=== PATIENT | male | born 1930 | race Caucasian/White ===

== ENCOUNTER 2016-07-26 15:21 | Emergency (ER) | payer MEDICARE, BC ==
--- NOTE | ~2016-07-26 | CT52 ---
[facility] A Service [facility] RADIOLOGY TEXT RESULTS PATIENT: MECCA LOYOLA LOCATION: [facility] : 31 UNIT #: [id number] AGE: [address]: Rusty Beth MD SEX: M ORDER DR: [id number] [place] [address] [id number] [facility]. [place], [place] [address] [id number] E MR#: [id number] Acc #: [id number] NAME: MECCA LOYOLA : 1930 SEX: M STUDY DATE/TIME: 07/26/2016 16:19 UNIT: [facility] ROOM: STUDY DESCRIPTION: CT Cervical Spine Wo Cont Attending Physician: Rusty Beth M.D. Ordering Physician: Rusty Beth M.D. Primary Care Physician: Blake Dhillon M.D. MEDICAL IMAGING REPORT This report is preliminary unless electronic signature is present EXAM CT cervical spine without contrast. DATE OF EXAM 07/26/2016 INDICATIONS Posterior neck pain after a fall today. PROCEDURE Noncontrast CT of the cervical spine. COMPARISON 05/26/2016 TECHNIQUE NOTE: This CT exam was performed with one or more of the following radiation dose reduction techniques: automatic exposure control, adjustment of mA and/or kV according to patient size, and iterative reconstruction. FINDINGS Cervical bodies have normal height, alignment is preserved. The craniocervical junction and dens are intact. Multilevel degenerative disc disease and facet arthrosis. Degenerative disc disease most significant C5-6. No acute fracture. Varying degrees of central canal neural foraminal narrowing. Right pleural effusion. IMPRESSION 1. Multilevel age-related change. No acute fracture. 2. Partially included right pleural effusion. [facility] A Service [facility] RADIOLOGY TEXT RESULTS PATIENT: MECCA LOYOLA LOCATION: [facility] : 31 UNIT #: [id number] AGE: [address]: Rusty Beth MD SEX: M ORDER DR: Dictated by... Carlin Schilling M.D. THIS IS AN ELECTRONICALLY VERIFIED REPORT Carlin Schilling M.D. at 07/28/2016 6:59 AM ANNA/lan TD: 07/26/2016 18:53 JOB #: [id number] MEDICAL IMAGING REPORT COPY
--- NOTE | ~2016-07-26 | CT71 ---
[facility] A Service of [facility] RADIOLOGY TEXT RESULTS PATIENT: MECCA LOYOLA LOCATION: [facility] : 31 UNIT #: [id number] AGE: [address]: Rusty Beth MD SEX: M ORDER DR: [id number] [place] [id number] [facility]. [place], [place] [address] [id number] E MR#: [id number] Acc #: [id number] NAME: MECCA LOYOLA : 1930 SEX: M STUDY DATE/TIME: 07/26/2016 16:16 UNIT: [facility] ROOM: STUDY DESCRIPTION: CT Head Wo Contrast Attending Physician: Rusty Beth M.D. Ordering Physician: Rusty Beth M.D. Primary Care Physician: Blake Dhillon M.D. MEDICAL IMAGING REPORT This report is preliminary unless electronic signature is present EXAM CT head, without contrast. DATE OF EXAM 07/26/2016 INDICATIONS Posterior head laceration after a fall today. PROCEDURE Noncontrast CT of the head. COMPARISON 05/26/2016 TECHNIQUE NOTE: This CT exam was performed with one or more of the following radiation dose reduction techniques: automatic exposure control, adjustment of mA and/or kV according to patient size, and iterative reconstruction. FINDINGS Generalized volume loss. No acute hemorrhage, abnormal mass effect, extraaxial fluid collection or hydrocephalus. No significant scalp hematoma. No calvarial fracture. The paranasal sinuses and mastoid air cells are clear. IMPRESSION 1. No acute intracranial findings. 2. Generalized volume loss. Dictated by... [facility] A Service [facility] RADIOLOGY TEXT RESULTS PATIENT: MECCA LOYOLA LOCATION: [facility] : 31 UNIT #: [id number] AGE: [address]: Rusty Beth MD SEX: M ORDER DR: Carlin Schilling M.D. THIS IS AN ELECTRONICALLY VERIFIED REPORT Carlin Schilling M.D. at 07/28/2016 6:59 AM Ranjana TD: 07/26/2016 18:48 JOB #: [id number] MEDICAL IMAGING REPORT COPY
[~2016-07-26 15:21] MED LIST: ACETAMINOPHEN PO; ACID REDUCER20 MG PO; ACTOS PO; ALBUTEROL17 GM INH; AMIODARONE HCL100 MG PO; AMIODARONE PO; AMLODIPINE BESY10 MG PO; AMLODIPINE BESYL5 MG PO; AMOXICILLIN PO; APRESOLINE PO; APRESOLINE10 MG PO; ASPIRIN PO; ASPIRIN325 M1 PO; ASPIRIN81 M2 PO; ASPIRIN81 MG PO; BIMATOPROST2.5 ML OP; BIMATOPROST2.5 ML OU; CALCITRIOL0.25 MCG PO; CHEWABLE ASPIRI81 MG PO; CORDARONE200 M1 PO; COUMADIN2.5 MG PO; COUMADIN5 MG PO; DOXYCYCLINE HY100 M3 PO; ELIQUIS2.5 MG PO; FAMOTIDINE20 M1 PO; FAMOTIDINE20 MG PO; FLOVENT HFA10.6 GM IH; FLOVENT7.9 GM 44 INH; FLOVENT7.9 GM INH; FUROSEMIDE40 MG PO; HYDRALAZINE HC100 MG PO; HYDROCHLOROTHIA25 MG PO; IMDUR-ER30 M2 PO; IMDUR-ER30 M3 PO; IMDUR-ER30 MG PO; K-DUR20 ME2 PO; KCL PO; KEFLEX PO; KLOR-CON PO; KROGER PHARMACY; LANTUS100 U/ML IM; LANTUS100 U/ML SUBQ; LASIX PO; LASIX80 MG PO; LEVOTHROID25 MCG PO; LEVOTHYROXINE100 MCG PO; LEVOTHYROXINE112 MCG PO; LEVOTHYROXINE50 MCG PO; LINZESS145 MCG PO; LOPRESSOR PO; LOSARTAN PO; LOSARTAN POTASS50 MG PO; LUMIGAN2.5 ML OP; LUMIGAN2.5 ML OU; METFORMIN HCL500 M1 PO; METFORMIN HCL500 M2 PO; METFORMIN PO; METOPROLOL SUCC25 MG PO; METOPROLOL SUCC50 MG PO; MICARDIS PO; NIASPAN PO; NIASPAN750 MG PO; NORCO 7.5-3251 EACH PO; NORVASC10 MG PO; ONE DAILY1 TA3 PO; ONGLYZA2.5 MG PO; ONGLYZA5 MG PO; PACERONE PO; PACERONE100 MG PO; PEN-VEE K PO; PENICILLIN PO; PENICILLIN V P500 MG PO; PEPCID AC20 M1 PO; PEPCID PO; PFIZERPEN-G5 MU IV; PLAVIX PO; POTASSIUM CHLO20 ME1 PO; PREDNISONE PO; SAXAGLIPTIN PO; SIMVASTATIN40 MG PO; SYNTHROID112 MCG PO; SYNTHROID88 MCG PO; TOPROL XL 50 MG50 MG PO; ZOCOR PO; [UNRECOGNIZED DRUG - REMARK] PO
== END 2016-07-26 17:34 | disposition home or self-care (01) ==
LOC: CED 15:21
DX: S09.90XA Unspecified injury of head, initial encounter (principal); S01.01XA Laceration without foreign body of scalp, initial encounter; Z23 Encounter for immunization; I50.9 Heart failure, unspecified; E11.9 Type 2 diabetes mellitus without complications; W01.0XXA Fall on same level from slipping, tripping and stumbling without subsequent striking against object, initial encounter; Y92.9 Unspecified place or not applicable
CPT/HCPCS: 12002; 70450; 72125; 90471; 90715; 99284

== ENCOUNTER 2016-08-18 10:56 | Inpatient (IN) | payer MEDICARE, BC ==
--- NOTE | ~2016-08-18 | DS ---
Unit #: [id number] #: [id number] Patient: MECCA LOYOLA [id number] [address] [place], [place] [address] [id number] I MR#: [id number] NAME: MECCA LOYOLA ROOM: 312 Age: 85 Sex: M Admission Date: 08/18/2016 : 1930 Discharge Date: 08/23/2016 Attending Physician: Tamara Mike M.D. Primary Care Physician: Blake Dhillon M.D. DISCHARGE SUMMARY REASON FOR ADMISSION Acute chronic systolic heart failure exacerbation/volume overload. HISTORY OF PRESENT ILLNESS/HOSPITAL COURSE Please see H and P for complete details of initial part of hospital stay. The patient is an 85-year-old, who was admitted secondary to acute on chronic systolic heart failure as well as volume overload. In regard to the same, consultation was placed to Dr. Jaeger and associates. They had seen the patient in the past. He was placed on appropriate dobutamine drip as well as IV diuresis. Consultation was also obtained with Dr. Rojas of Nephrology Services. Both services continued to follow the patient through hospital course. Initial platelet count was greater than 150, it did decrease into the mid 80s. The patient was on Eliquis secondary to underlying history of atrial fibrillation. Later on, this was discontinued. Rate/rhythm control was achieved with amiodarone and decision was made for no chronic anticoagulation with the exception of aspirin at the time of discharge secondary to decreasing platelets. Renal services have also stated the patient requires increased diuresis at time of discharge and therefore, Demadex was increased prior to discharge. Aspirin was also discontinued after chart review on 08/23/2016. FINAL DISCHARGE DIAGNOSES 1. Acute on chronic systolic heart failure with estimated ejection fraction approximately 30%. 2. Acute on chronic kidney disease. 3. Moderate pleural effusion, improved after appropriate IV diuresis. 4. Prior history of myocardial infarction. 5. Paroxysmal atrial fibrillation history/flutter history. 6. Chronic deconditioning. 7. Diabetes type 2. 8. 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 9. Thrombocytopenia possibly secondary to Eliquis and/or other anticoagulation. Discharge platelet count approximately 90. 10. Hyponatremia on admission, improved likely secondary to dilution. 11. Chronic kidney disease stage IV. 12. Hypertension. 13. Hyperlipidemia. 14. Volume overload on admission, now resolved. Unit #: [id number] #: [id number] Patient: MECCA LOYOLA DISCHARGE MEDICATIONS Proventil 4 puffs q.6 p.r.n., amiodarone 200 mg p.o. daily, carvedilol 3.125 mg p.o. b.i.d., Tradjenta 5 mg p.o. daily, Demadex 80 mg p.o. b.i.d., simvastatin 40 mg p.o. daily, hydralazine 10 mg p.o. b.i.d., Lantus 14 units subcu q.a.c. breakfast, Pepcid 20 mg p.o. daily, aspirin 81 mg p.o. daily, Synthroid 112 mcg p.o. daily, Imdur 30 mg p.o. daily. DISCHARGE CONDITION Stable. DISCHARGE DISPOSITION Home. PROGNOSIS Overall long-term prognosis, guarded. Family is well aware. Dictated by... Tamara Mike M.D. YAAKOV/tessa TD: 08/24/2016 22:35 JOB #: [id number] DISCHARGE SUMMARY Page 1 of 1 X Tamara Mike MD X DISCHARGE SUMMARY
--- NOTE | ~2016-08-18 | EKG ---
PATIENT: MECCA LOYOLA UNIT #: [id number] Ventricular Rate: 60 BPM Atrial Rate: 59 BPM P-R Interval: 190 ms QRS Duration: 166 ms Q-T Interval: 610 ms QTC Calculation(Bezet): 610 ms P [place]: 119 degrees Calculated R [place]: -86 degrees Calculated T [place]: 88 degrees Diagnosis Line: AV dual-paced rhythm Diagnosis Line: Abnormal ECG Diagnosis Line: When compared with ECG of 24-JUN-2016 05:35, Diagnosis Line: Vent. rate has decreased BY 4 BPM Diagnosis Line: Confirmed by CRUZ TIRADO MD ([id number]) on 08/19/2016 Diagnosis Line: 4:50:47 AM INTERPRETING MD: CANDIDA BARRIOS
--- NOTE | ~2016-08-18 | CT71 ---
[facility] A Service of [facility] RADIOLOGY TEXT RESULTS PATIENT: MECCA LOYOLA LOCATION: [facility] : 31 UNIT #: [id number] AGE: [address]: Tamara Mike MD SEX: M ORDER DR: [id number] [facility] [address] [facility]. [place], [place] [address] [id number] I MR#: [id number] Acc #: [id number] NAME: MECCA LOYOLA : 1930 SEX: M STUDY DATE/TIME: 08/18/2016 11:37 UNIT: [facility] ROOM: 12934 STUDY DESCRIPTION: CT Head Wo Contrast Attending Physician: Marixa Adkins M.D. Ordering Physician: Adrian Caballero M.D. Primary Care Physician: Blake Dhillon M.D. MEDICAL IMAGING REPORT This report is preliminary unless electronic signature is present EXAM CT brain without contrast media, date of examination is 08/18/2016 COMPARISON 07/26/2016 HISTORY Confusion for 1 day. TECHNIQUE Transaxial imaging of the brain was performed without contrast and compared directly to the patient's previous noncontrast scan of July 26. This CT exam was performed with one or more of the following radiation dose reduction techniques: Automatic exposure control, adjustment of mA and/or kV according to patient size, and iterative reconstruction. FINDINGS Redemonstrated is marked enlargement of the ventricles and CSF-containing spaces. This is unchanged and there is some decreased attenuation of the periventricular white matter, this is minimal. No mass lesions, mass effect, acute hemorrhage or edema, no intra- or extraaxial fluid collections are identified. Patient does have dense atherosclerotic calcifications in the carotid siphons and in both vertebral arteries. CONCLUSION Generalized atrophy. No acute intracranial findings or significant changes since July 26, 2016. Dictated by... Mor Wells M.D. [facility] A Service [facility] RADIOLOGY TEXT RESULTS PATIENT: MECCA LOYOLA LOCATION: [facility]- : 31 UNIT #: [id number] AGE: [address]: Tamara Mike MD SEX: M ORDER DR: THIS IS AN ELECTRONICALLY VERIFIED REPORT Mor Wells M.D. at 08/20/2016 3:10 PM Radha TD: 08/18/2016 18:11 JOB #: [id number] MEDICAL IMAGING REPORT Page 1 of 1 COPY
--- NOTE | ~2016-08-18 | CO ---
Unit #: [id number] #: [id number] Patient: MECCA LOYOLA [id number] [address] [place], [place] [address] [id number] I MR#: [id number] NAME: MECCA LOYOLA ROOM: 312 Age: 85 Sex: M Admission Date: 08/18/2016 : 1930 Attending Physician: Tamara Mike M.D. Primary Care Physician: Blake Dhillon M.D. Consultation Date: 08/18/2016 CONSULTATION REPORT REASON FOR CONSULT Management of anticoagulation. HISTORY OF PRESENT ILLNESS This is an 85-year-old white male, well known to our group with recent admissions to the hospital in 05/2016 and 06/2016. The patient is known to have chronic systolic congestive heart failure and ischemic cardiomyopathy with a left ventricular ejection fraction of 30% to 35%. He also has severe mitral regurgitation, llaqznhe-id-tdtptq tricuspid regurgitation, and severe pulmonary hypertension. He was diagnosed with atrial flutter/atrial fibrillation in 05/2016. He was placed on Eliquis at that time. He does have a permanent pacemaker due to sick sinus syndrome. 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 Additional past medical history includes hypertension, hyperlipidemia, diabetes mellitus type 2, and chronic kidney disease. The patient presented to the hospital with complaints of weakness and worsening confusion. His mental status is currently improved and he is able answer questions. He also has his and daughter at the bedside. According to the family, he has not been feeling well recently. On Thursday, his feet were very swollen. They have given an extra dose of diuretics in prompt to speed up and the swelling got better. He has had some worsening shortness of breath and productive cough. There are no reports of fever, but he does have chills and keeps the house very warm. He has had some occasional palpitations. There are no reports of dizziness or syncope. He denies chest pain, PND, or orthopnea. He has had bruising all over his arms, chest, and back over the recent months since starting on Eliquis. Family is very concerned about the bruising and is inquiring about need for anticoagulation. The patient has also had bleeding from his gums though she states it has been present for approximately 5 years. It has not worsened since starting Eliquis . He has had no gastrointestinal bleeding reported. In the emergency department, he was initially seen for altered mental status and low blood pressure. Blood pressure in the emergency department was 99/60. He was given normal saline bolus. Glucose level was low and he was given one amp of D50. Chest x-ray revealed consolidation in the right lower lobe and there was concern for pneumonia. He was given Zosyn and tobramycin, and admitted for acute altered mental status, acute kidney injury, sepsis, and possible pneumonia. Nephrology was consulted due to an elevated creatinine of 4.0 with a BUN of 73. Cardiology was consulted for management of anticoagulation. PAST MEDICAL HISTORY Unit #: [id number] #: [id number] Patient: MECCA LOYOLA 1. Recent admission to [facility] on 06/23/2016 through 06/28/2016 for systolic congestive heart failure and acute kidney injury on chronic kidney disease. 2. Previous admission on 05/16/2016 for acute kidney injury, falls, atrial flutter and atrial fibrillation. 3. 2D echocardiogram on 06/24/2016 revealed a left ventricular ejection fraction of 55% while on Dobutrex. Left atrium moderately to severely dilated. Moderate left atrial enlargement. Mildly dilated right ventricle. Right ventricular systolic pressure 79 mmHg. Mild aortic regurgitation. Severe mitral regurgitation. Pjvvectd-dg-nnnlpw tricuspid regurgitation. 4. Previous ejection fraction 30% to 35% in 2016. 5. Coronary artery disease, status post PCI and stent in the LAD in 2000. Status post PCI and stents in the right coronary artery and left circumflex in 2009. 6. Sick-sinus syndrome, status post permanent pacemaker. 7. Chronic kidney disease. 8. 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 9. Hypertension. 10. Hyperlipidemia. 11. Diabetes mellitus, type 2. 12. Nonsmoker. 13. Hemochromatosis. PAST SURGICAL HISTORY 1. Cardiac catheterization. 2. Permanent pacemaker. 3. Right knee replacement. 4. Left knee replacement. 5. Rotator cuff repair bilaterally. 6. Basal cell removal. HOME MEDICATIONS Amiodarone 200 mg p.o. daily, Eliquis 2.5 mg, metoprolol tartrate 25 mg p.o. b.i.d., torsemide 60 mg p.o. b.i.d., simvastatin 40 mg p.o. daily, hydralazine 10 mg p.o. b.i.d., Lantus 14 units subcu before breakfast, bimatoprost one drop OU every evening, famotidine 20 mg p.o. daily, aspirin 81 mg p.o. daily, Synthroid 112 mcg p.o. daily, Imdur ER 30 mg p.o. daily, Tradjenta 5 mg p.o. daily, Ventolin 4 puffs inhalation q.i.d. p.r.n. for shortness of breath. ALLERGIES No known drug allergies. SOCIAL HISTORY The patient lives in a private residence. He is fairly sedentary. He is a lifetime nonsmoker. There are no reports of alcohol or illicit drug use. FAMILY HISTORY Unchanged from previous consultation. REVIEW OF SYSTEMS A 10-point review of systems negative except for details noted above in HPI. PHYSICAL EXAMINATION VITAL SIGNS: Temperature 97.3, pulse 73, blood pressure 113/77. CONSTITUTIONAL: This is an 85-year-old white male, who is ill appearing. Unit #: [id number] #: [id number] Patient: MECCA LOYOLA SKIN: Warm and dry. Petechiae noted on the chest and back. Bruising on arms. NECK: Supple. Mild jugular vein distention. No hepatojugular reflux. Normal carotid upstrokes. No carotid bruits auscultated. HEART: S1 and S2. Regular rate and rhythm. No murmurs, rubs, or gallops. LUNGS: Bilateral breath sounds are coarse and have some rhonchi and rales. Respirations are even and nonlabored. ABDOMEN: Soft, nontender, and nondistended. Positive bowel sounds auscultated x4 quadrants. No ascites noted. EXTREMITIES: Bilateral lower extremities have +2 pitting edema. DP and PT pulses are 2+. Capillary refill is less than 2 seconds. DIAGNOSTIC STUDIES LABORATORY RESULTS: White blood cell count 8, hemoglobin 11.8, hematocrit 37, platelets 159. Sodium 128, potassium 3.9, chloride 89, CO2 of 27, BUN 73, creatinine 4.0, glucose 58. Glucose given. AST 47, ALT 70, alkaline phos 89. Lactic acid 2.4. TSH 0.39, T4 3.15. Urinalysis negative. Blood cultures pending. CARDIOVASCULAR STUDIES: EKG reveals an AV paced rhythm. IMAGING STUDIES: Chest x-ray reveals cardiomegaly with interstitial changes. Increased right basilar density with consolidation. CT scan of the head reveals generalized atrophy. No acute changes. IMPRESSION 1. Acute on chronic systolic congestive heart failure. 2. Severe mitral regurgitation, mmfscxfm-ic-brnabt tricuspid regurgitation, and severe pulmonary hypertension. 3. Ischemic cardiomyopathy, coronary artery disease, status post multiple percutaneous coronary intervention and stents. 4. Probable right lower lobe pneumonia, rule out sepsis. 5. Hyponatremia. 6. Acute kidney injury on chronic kidney disease. 7. History of paroxysmal atrial fibrillation/atrial flutter, now paced. 8. Sick sinus syndrome with history of permanent pacemaker. 9. Hyperlipidemia. 10. Diabetes mellitus, type 2. 11. Elevated LFTs. 12. 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 PLAN 1. The patient presented to the hospital with complaints of altered mental status and weakness. His mental status has improved and CT of the head was negative. 2. Chest x-ray revealed a concern for right lower lobe pneumonia. He was started on antibiotics and admitted for further observation. 3. Cardiology was consulted for management of anticoagulation. The patient and family are concerned due to significant bruising while on anticoagulation. 4. The patient also has bleeding of the gums. We will discontinue Eliquis for now and defer long-term anticoagulation to Dr. Jaeger. 5. There is evidence of congestive heart failure on exam as well as acute kidney injury. Unit #: [id number] #: [id number] Patient: MECCA LOYOLA 6. The patient will be started on dobutamine. His metoprolol will be held while dobutamine infuses. 7. Nephrology has been consulted. 8. TSH levels normal. 9. There are no reports of chest pain. Initial cardiac enzymes and EKG are negative. 10. We will continue hydralazine and nitrates for afterload reduction. No ZHANG or ARB will be prescribed due to renal insufficiency. Dictated by... Natalie William APRN for Leigh Ga/tessa TD: 08/21/2016 03:51 JOB #: [id number] CONSULTATION REPORT Page 1 of 1 X X CONSULTATION REPORT
--- NOTE | ~2016-08-18 | CR63 ---
[facility] A Service of [facility] & [facility] RADIOLOGY TEXT RESULTS PATIENT: MECCA LOYOLA LOCATION: [facility] 312- : 31 UNIT #: [id number] AGE: [address]: Tamara Mike MD SEX: M ORDER DR: [id number] [facility] [address] [place], [place] [address] [id number] I MR#: [id number] Acc #: [id number] NAME: MECCA LOYOLA : 1930 SEX: M STUDY DATE/TIME: 08/19/2016 09:31 UNIT: [address] ROOM: 312 STUDY DESCRIPTION: CR Chest 2 View Attending Physician: Tamara Mike M.D. Ordering Physician: Adrian Caballero M.D. Primary Care Physician: Blake Dhillon M.D. MEDICAL IMAGING REPORT This report is preliminary unless electronic signature is present EXAM Chest 2 views, 08/19/2016 0931 hours HISTORY 85-year-old man with history of chest pain, hypertension, shortness of air and altered mental status today. History of diabetes and prior CHF. COMPARISON 08/18/2016 FINDINGS Upright PA and lateral views of the chest demonstrate stable cardiomegaly, pacer device and tortuous aorta. Pulmonary vascularity is within normal limits. The left lung is clear and there is no left effusion. There is hazy density at the right lung base related to pleural fluid, which is moderate. No definite underlying consolidation. IMPRESSION 1. Stable cardiomegaly, tortuous aorta and dual-lead pacer device. 2. There is a moderate right pleural effusion with no definite underlying consolidation. The right upper lung, left lung are clear and there is no left effusion. Dictated by... Sonya Hood M.D. THIS IS AN ELECTRONICALLY VERIFIED REPORT Sonya Hood M.D. at 08/20/2016 9:38 AM STACYM/katie TD: 08/19/2016 18:35 JOB #: [id number] [facility] A Service of [facility] & [facility] RADIOLOGY TEXT RESULTS PATIENT: MECCA LOYOLA LOCATION: [facility] 312-01 : 31 UNIT #: [id number] AGE: [address]: Tamara Mike MD SEX: M ORDER DR: MEDICAL IMAGING REPORT Page 1 of 1 COPY
--- NOTE | ~2016-08-18 | CR72 ---
[facility] A Service of [facility] RADIOLOGY TEXT RESULTS PATIENT: MECCA LOYOLA LOCATION: [facility] [address]-29 : 31 UNIT #: [id number] AGE: [address]: JOSE ADKINS MD SEX: M ORDER DR: [id number] [facility] [address] [facility] [place], [place] [address] [id number] I MR#: [id number] Acc #: [id number] NAME: MECCA LOYOLA : 1930 SEX: M STUDY DATE/TIME: 08/18/2016 11:21 UNIT: [facility] ROOM: 55945 STUDY DESCRIPTION: CR Chest Single View Portable Attending Physician: Jose Adkins M.D. Ordering Physician: Adrian Caballero M.D. Primary Care Physician: Blake Dhillon M.D. MEDICAL IMAGING REPORT This report is preliminary unless electronic signature is present EXAM Chest portable, 08/18/2016 11:21 hours HISTORY 85-year-old man with shortness of air and hypertension today. COMPARISON 06/23/2016 FINDINGS Single portable upright view demonstrates stable cardiomegaly, dual lead pacer and tortuous atherosclerotic aorta. There is mild pulmonary venous distension and mild basilar interstitial change similar to 06/23/2016. There appears to be an increasing right pleural effusion. IMPRESSION 1. Stable cardiomegaly, tortuous atherosclerotic aorta and pacer device. 2. There is basilar interstitial change with increasing right basilar density. There is a component of pleural fluid which is new. Underlying lung consolidation or pneumonia cannot be excluded at the right base. Dictated by... Sonya Hood M.D. THIS IS AN ELECTRONICALLY VERIFIED REPORT Sonya Hood M.D. at 08/18/2016 6:54 PM Meme TD: 08/18/2016 14:48 JOB #: [id number] [facility] A Service of [facility] RADIOLOGY TEXT RESULTS PATIENT: MECCA LOYOLA LOCATION: [facility] [address]-63 : 31 UNIT #: [id number] AGE: [address]: JOSE ADKINS MD SEX: M ORDER DR: MEDICAL IMAGING REPORT Page 1 of 1 COPY
--- NOTE | ~2016-08-18 | CO ---
Unit #: [id number] #: [id number] Patient: ALAN LOYOLA [id number] [address] [place], [place] [address] [id number] I MR#: [id number] NAME: ALAN LOYOLA ROOM: 312 Age: 85 Sex: M Admission Date: 08/18/2016 : 1930 Attending Physician: Marixa Adkins M.D. Primary Care Physician: Blake Dhillon M.D. Consultation Date: 08/18/2016 CONSULTATION REPORT REASON FOR CONSULTATION Acute on chronic kidney disease. HISTORY OF PRESENT ILLNESS Mr. Alan Loyola is a pleasant 85-year-old gentleman, who was actually brought into the emergency room due to confusion by the family. The patient had also had some weakness and possibly some falls as well according to the ER intake sheet. One of his daughters had given him some extra diuretics over the weekend, because she was concerned about some swelling. The patient has been worked up in the ER and then found to have probable pneumonia as well as a CHF exacerbation. His blood pressure has been low, he has actually been getting fluids here in the emergency room. He was most recently admitted to the hospital in June for a CHF exacerbation and his outpatient diuretics have been changed from Lasix to torsemide to assist with the diuresis. The patient's creatinine is noted to be above baseline on admission labs. He does have a very poorly developed fistula in the right arm for future dialysis, but based on exam I do not feel it would ever be adequate for treatment. The patient is now more alert and oriented. He denies any chest discomfort or shortness of breath. No urinary complaints. He does have swelling in his legs. PAST MEDICAL HISTORY Significant for chronic kidney disease stage 4, coronary artery disease with previous intervention, sick sinus syndrome with atrial fibrillation requiring pacer, congestive heart failure with an ejection fraction of 30% to 35%, diabetes, and hypothyroidism. PAST SURGICAL HISTORY He has had a pacemaker placed right arm fistula, knee replacements, rotator cuff, coronary stents, and skin cancer. HOME MEDICATIONS He is on amiodarone 200 mg a day, Eliquis 2.5 mg b.i.d. on hold due to bruising, metoprolol 25 mg b.i.d., torsemide 60 mg b.i.d., simvastatin 40 mg a day, hydralazine 10 mg b.i.d., Lantus insulin as directed, eye drops, famotidine 20 mg a day, baby aspirin daily, Synthroid 112 mcg a day, Imdur 30 mg a day, Tradjenta 5 mg a day, and Ventolin inhaler. ALLERGIES He has no known drug allergies. FAMILY HISTORY Noncontributory to the current issue. Unit #: [id number] #: [id number] Patient: ALAN LOYOLA SOCIAL HISTORY The patient used to smoke, none currently. No alcohol or drug abuse. He is , has a very supportive large family in the room this afternoon. REVIEW OF SYSTEMS A complete 12-point review of systems was completed with the above findings. There have not been any documented fevers here in the emergency room. No nosebleed. No sore throat or earache. No cough. No hemoptysis. No hematemesis. No nausea, vomiting, or diarrhea. No bright red blood per rectum or melena. No dysuria or hematuria. No itching. No flank pain. No night sweats or hot flashes. No intolerance to heat or cold. He has had significant bruising. He has had weakness. No overt bleeding. Unless otherwise indicated, the review of systems was negative. PHYSICAL EXAMINATION VITAL SIGNS: The patient is afebrile, pulse 73, respiratory rate 16, and blood pressure 113/77. GENERAL: This is a pleasant elderly male, lying in bed, with attentive family, in no acute distress. HEENT: Head is atraumatic and normocephalic. Eyes show pink conjunctivae. No scleral icterus. No nasal drainage or nosebleed. Oropharynx is moist. NECK: Shows no rigidity. HEART: Paced and regular with murmur present. No rub appreciated. LUNGS: Have diminished air entry bilaterally with no wheezing. Breathing is nonlabored at rest. ABDOMEN: Soft and nontender. Bowel sounds are present. EXTREMITIES: No lower extremity cyanosis present. He does have 1+ pitting edema below the knees bilaterally. CHEST WALL: He does have a left-sided pacer in place. MUSCULOSKELETAL: No CVA tenderness to palpation. NEUROLOGIC: Noteworthy for generalized weakness. The patient is hard of hearing, but does have hearing aids. LYMPHATIC: There is no neck or cervical lymphadenopathy. SKIN: The patient has diffuse scattered bruising which is noted. VASCULAR: The patient has right wrist fistula in place that is very small. DIAGNOSTIC STUDIES LABORATORY RESULTS: CBC showed a hemoglobin of 11.8 on admission. INR 1.3. Lactic acid was 2.4. Ammonia 10. Chemistry noteworthy for a sodium of 128, potassium 3.9, chloride 89, bicarb 27, glucose 58, BUN 73, creatinine of 4. AST and ALT were high at 47 and 70 respectively with an albumin of 3.5. TSH slightly high at 3.1. Urinalysis was unremarkable with no protein or blood. Prior creatinine to this was 1.9 at discharge in 06/2016, this looks to be his baseline kidney function. IMAGING STUDIES: Chest x-ray showed some basilar interstitial change, especially on the right. I do see a dedicated kidney ultrasound in 07/2014 where kidneys were normal in appearance. ASSESSMENT AND PLAN 1. Acute on chronic kidney disease, stage 4. This looks to be prerenal in nature from a combination of decompensated heart failure and pneumonia. Certainly, I agreed with the treatment of both his heart failure and his Unit #: [id number] #: [id number] Patient: ALAN LOYOLA infection issues. Dobutamine drip has been started as well as antibiotics. The patient has responded well to these measures in the past and hopefully will do so again. He does have a fistula which again is too small to ever use for dialysis. If he would need dialysis during this admission, we would have to place a catheter. 2. Hyponatremia. This looks to be due to total volume excess. We will diurese with dobutamine on board. 3. Congestive heart failure, which is systolic in nature. I will add IV Lasix to the dobutamine that Cardiology has ordered. 4. Pneumonia with antibiotics started. 5. Mental status changes, which have improved. 6. Diabetes. 7. Diffuse bruising with Eliquis on hold. 8. History of heart rhythm issues with pacemaker in place. I would like to thank Dr. Adkins for this consult and the opportunity participate in evaluation and care Mr. Loyola. Dictated by... Harry Rojas Jr., M.D. ETHAN/tessa TD: 08/18/2016 23:58 JOB #: [id number] CONSULTATION REPORT Page 1 of 1 X Harry Rojas MD CONSULTATION REPORT
--- NOTE | ~2016-08-18 | HP ---
Unit #: [id number] #: [id number] Patient: MECCA LOYOLA [id number] [address] [place], [place] [address] [id number] E MR#: [id number] NAME: MECCA LOYOLA ROOM: Age: 85 Sex: M Admission Date: 08/18/2016 : 1930 Attending Physician: Adrian Caballero M.D. Primary Care Physician: Blake Dhillon M.D. HISTORY AND PHYSICAL CHIEF COMPLAINT Altered mental status. HISTORY OF PRESENT ILLNESS The patient is an 85-year-old male with history of multiple medical problems, including chronic kidney disease - stage 4. Brought to the emergency room with confusion that started last night. The patient stated that he was unaware of surroundings early this morning when he woke up, and he was found to be hypotensive by the EMS. The patient is a poor historian, and history is obtained by speaking with the patient's family at the bedside. The patient was recently discharged from the hospital on June 28 with acute systolic congestive heart failure, acute on chronic disease, and the patient was discharged home on high-dose of Lasix. The patient was found to be in acute kidney injury on chronic kidney disease with creatinine up to 4 from baseline of 2. The patient also had a chest x-ray concerning for consolidation, pneumonia of the right base. The patient is being admitted for the above reasons. The patient denies any fever. The patient has been coughing up brownish phlegm for the last 2-3 days. Denies any nausea or vomiting. The patient has edema of the lower legs and has been on high dose (1) started by primary nephrology at the office. The patient had a fall associated with recurrent bruises on the upper extremities and the chest and on the left side of the face. The patient was on Coumadin for A fib and was changed to Eliquis for the kidney failure. PAST MEDICAL HISTORY History of atrial fibrillation, sick sinus syndrome status post pacemaker, history of chronic congestive heart failure with EF of 30% to 35%, coronary artery disease, chronic kidney disease, history of frequent falls, anemia. The patient also has history of amiodarone-induced hypothyroidism, history of left eye histoplasmosis. SURGICAL HISTORY History of total knee replacement with revision of the left knee, left rotator cuff repair, basal cell carcinoma removed. ALLERGIES There are no known drug allergies. HOME MEDICATIONS He is on amiodarone, Eliquis, Metoprolol, Demadex, simvastatin, hydralazine, Lantus, bimatoprost, famotidine, aspirin, Synthroid, Imdur, linagliptin and albuterol. Unit #: [id number] #: [id number] Patient: MECCA LOYOLA SOCIAL HISTORY Patient is , denies history of smoking, drinking or any illicit drug abuse. FAMILY HISTORY Family history is positive for coronary artery disease and hemochromatosis. REVIEW OF SYSTEMS A 14-point review of systems was performed, and all the pertinent positive findings are as described above. The remaining are negative. PHYSICAL EXAMINATION GENERAL: The patient is lying in the bed. Not in acute distress. VITALS: Temperature is 97.3, pulse 60, respiratory rate 16, blood pressure 99/60, satting 100% on room air. HEENT: Head atraumatic, normocephalic. Pupils are equal round reactive to light and accommodation. Extraocular movements are intact. Dry mucous membranes. NECK: Supple. No JVD. LUNGS: Decreased air entry at the bases. Positive for rales. HEART: Irregular rate and rhythm. Positive for murmur. ABDOMEN: Soft. Positive bowel sounds. Multiple bruises on the upper chest. EXTREMITIES: The patient has pedal edema, +1 to +2, and bruit of the fistula in the right upper extremity, (2) skin tear. NEUROLOGIC: The patient is awake, alert and oriented x1. DIAGNOSTIC STUDIES LAB DATA: Glucose 58, BUN 73, creatinine 4, sodium 128, potassium 3.9, chloride 89, bicarb 27, calcium 8.9, total protein 6.5, albumin 3.5, total bilirubin 3, AST 47, ALT 70, alkaline phosphatase 89, ammonia 10, lactic acid 2.4. TSH is 0.39, free T4 3.14. INR is 1.3. WBC 8, hemoglobin 11.8, hematocrit 37, platelets 159, neutrophils 83.1%. IMAGING: Chest x-ray shows consolidation or pneumonia on the right base. ASSESSMENT 1. Altered mental status. 2. Acute kidney injury on chronic kidney disease stage 4. 3. Consolidation, pneumonia of the right base. 4. Sepsis with elevated lactic acid of 2.4. PLAN Plan to admit the patient as inpatient with telemetry. Continue with IV antibiotics. The patient has received vancomycin, Zosyn and tobramycin in the emergency room. We will continue with cefepime. Will have renal consult for acute kidney injury. Will have cardiology consult for [facility] for bruises with the fall. Continue the sepsis protocol. The EKG shows paced rhythm with rate of 60 beats per minute and QTc of 610. Further recommendations will follow as more lab results are available. Dictated by Leigh Velez/bronson Unit #: [id number] #: [id number] Patient: MECCA LOYOLA TD: 08/18/2016 14:05 JOB #: [id number] HISTORY AND PHYSICAL X X HISTORY AND PHYSICAL
[2016-08-18] MEDS ORDERED: ELIQUIS2.5 MG PO (11:41)
[2016-08-18] MEDS ORDERED: AMIODARONE PO (11:41)
[2016-08-18] MEDS ORDERED: METOPROLOL TAR25 MG PO (11:42)
[2016-08-18] MEDS ORDERED: DEMADEX PO (11:43)
[2016-08-18] MEDS ORDERED: SIMVASTATIN40 MG PO (11:44)
[2016-08-18] MEDS ORDERED: APRESOLINE10 M1 PO (11:45)
[2016-08-18] MEDS ORDERED: LANTUS100 U/ML SUBQ (11:46)
[2016-08-18] MEDS ORDERED: BIMATOPROST2.5 ML OU (11:47)
[2016-08-18] MEDS ORDERED: ACID REDUCER20 MG PO (11:48)
[2016-08-18] MEDS ORDERED: ASPIRIN81 M2 PO (11:48)
[2016-08-18] MEDS ORDERED: SYNTHROID112 MCG PO (11:48)
[2016-08-18] MEDS ORDERED: IMDUR-ER30 M1 PO (11:49)
[2016-08-18] MEDS ORDERED: TRADJENTA5 MG PO (11:49)
[2016-08-18] MEDS ORDERED: ALBUTEROL17 GM INH (11:50)
[2016-08-18 11:52] LABS: BASOPHIL% 0.1 % (0-2.5); EOSINOPHIL% 0.2 % (0.0-7.0); HEMOGLOBIN 11.8 gm/dL (13.0-16.0); LYMPHOCYTE# 0.4 X10e3 (1.0-3.5); LYMPHOCYTE% 5.5 % (17.0-45.0); MEAN CELL VOLUME 89.3 FL (83-96); MEAN CORPUSCULAR HEMOGLOBIN 28.4 PG (28-34); MEAN CORPUSCULAR HGB CONC 31.8 g/dL (30-36); MEAN PLATELET VOLUME 8.6 FL (6.5-11.5); MONOCYTE# 0.9 X10e3 (0-1.0); MONOCYTE% 11.1 % (3.0-12.0); NEUTROPHIL# 6.7 X10e3 (1.5-7.1); NEUTROPHIL% 83.1 % (40-75); PLATELET COUNT 159 X10e3 (140-420); RED BLOOD COUNT 4.14 X10e (3.90-5.60); RED CELL DISTRIBUTION WIDTH 16.8 % (11.0-15.5)
[2016-08-18 11:53] LABS: DIFF IND NO
[2016-08-18 12:07] LABS: INR 1.3; PARTIAL THROMBOPLASTIN TIME 29.1 SECONDS (23.5-31.3); PROTHROMBIN TIME (PATIENT) 13.9 SECONDS (9.6-11.5)
[2016-08-18 12:31] LABS: ALBUMIN SERUM 3.5 g/dL (3.5-5.0); BILIRUBIN, DIRECT 1.1 mg/dL (0.0-0.2); BILIRUBIN,INDIRECT 1.9 mg/dL (0.0-0.9); BUN/CREATININE RATIO 18.25; CALCIUM SERUM 8.9 mg/dL (8.4-10.2); GLOM FILT RATE Estimated 15.3 mL/min (>60); POTASSIUM 3.9 mmol/L (3.5-5.1); PROTEIN TOTAL SERUM 6.5 g/dL (6.0-8.3)
[2016-08-18 12:41] LABS: THYROID STIMULATING HORMONE 0.39 uIU/ml (0.34-5.60)
[2016-08-18 12:42] LABS: URINE SOURCE CLEAN CATCH
[2016-08-18 12:48] LABS: FREE THYROXIN (T4) 3.15 ng/dL (0.58-1.64)
[2016-08-18 12:49] LABS: URINE APPEARANCE CLEAR; URINE BILIRUBIN NEG (NEG); URINE BLOOD NEG (NEG); URINE COLOR YELLOW; URINE GLUCOSE NEG (NEG); URINE KETONE NEG (NEG); URINE LEUKOCYTE ESTERASE NEG (NEG); URINE NITRATE NEG (NEG); URINE PROTEIN NEG (NEG); URINE SPECIFIC GRAVITY 1.013 (1.003-1.035)
[2016-08-18 12:59] LABS: CULTURE INDICATED? NO
[2016-08-19 08:27] LABS: BASOPHIL% 0.1 % (0-2.5); EOSINOPHIL% 0.1 % (0.0-7.0); HEMATOCRIT 31.4 % (38.0-50.0); LYMPHOCYTE# 0.2 X10e3 (1.0-3.5); LYMPHOCYTE% 4.2 % (17.0-45.0); MEAN CELL VOLUME 90.3 FL (83-96); MEAN CORPUSCULAR HEMOGLOBIN 28.8 PG (28-34); MEAN CORPUSCULAR HGB CONC 31.9 g/dL (30-36); MEAN PLATELET VOLUME 8.9 FL (6.5-11.5); MONOCYTE# 0.7 X10e3 (0-1.0); MONOCYTE% 12.1 % (3.0-12.0); NEUTROPHIL# 4.7 X10e3 (1.5-7.1); NEUTROPHIL% 83.5 % (40-75); PLATELET COUNT 101 X10e3 (140-420); RED BLOOD COUNT 3.48 X10e (3.90-5.60); RED CELL DISTRIBUTION WIDTH 17.1 % (11.0-15.5); WHITE BLOOD COUNT 5.6 X10e3 (4.0-10.5)
[2016-08-19 08:29] LABS: DIFF IND NO
[2016-08-19 08:51] LABS: BUN/CREATININE RATIO 19.06; CALCIUM SERUM 8.3 mg/dL (8.4-10.2); CREATININE SERUM 3.2 mg/dL (0.6-1.4); GLOM FILT RATE Estimated 19.8 mL/min (>60); MAGNESIUM 2.3 mg/dL (1.6-3.0); POTASSIUM 3.9 mmol/L (3.5-5.1)
[2016-08-20 05:19] LABS: BASOPHIL% 0.2 % (0-2.5); EOSINOPHIL% 0.6 % (0.0-7.0); HEMATOCRIT 30.4 % (38.0-50.0); HEMOGLOBIN 9.9 gm/dL (13.0-16.0); LYMPHOCYTE# 0.3 X10e3 (1.0-3.5); LYMPHOCYTE% 5.4 % (17.0-45.0); MEAN CELL VOLUME 88.4 FL (83-96); MEAN CORPUSCULAR HEMOGLOBIN 28.8 PG (28-34); MEAN CORPUSCULAR HGB CONC 32.6 g/dL (30-36); MEAN PLATELET VOLUME 8.5 FL (6.5-11.5); MONOCYTE# 0.8 X10e3 (0-1.0); MONOCYTE% 13.9 % (3.0-12.0); NEUTROPHIL# 4.3 X10e3 (1.5-7.1); NEUTROPHIL% 79.9 % (40-75); RED BLOOD COUNT 3.44 X10e (3.90-5.60); RED CELL DISTRIBUTION WIDTH 16.8 % (11.0-15.5); WHITE BLOOD COUNT 5.4 X10e3 (4.0-10.5)
[2016-08-20 05:58] LABS: BUN/CREATININE RATIO 18.21; CALCIUM SERUM 8.5 mg/dL (8.4-10.2); CREATININE SERUM 2.8 mg/dL (0.6-1.4); GLOM FILT RATE Estimated 23.1 mL/min (>60); MAGNESIUM 2.3 mg/dL (1.6-3.0); POTASSIUM 3.1 mmol/L (3.5-5.1)
[2016-08-20 06:03] LABS: DIFF IND YES; PLATELET COUNT 98 X10e3 (140-420)
[2016-08-20 06:05] LABS: ANISOCYTOSIS SL; PLATELET ESTIMATE DECREASED (NORMAL)
[2016-08-21 07:30] LABS: HEMATOCRIT 31.6 % (38.0-50.0); HEMOGLOBIN 10.1 gm/dL (13.0-16.0); MEAN CELL VOLUME 89.6 FL (83-96); MEAN CORPUSCULAR HEMOGLOBIN 28.7 PG (28-34); MEAN PLATELET VOLUME 8.9 FL (6.5-11.5); RED BLOOD COUNT 3.53 X10e (3.90-5.60); RED CELL DISTRIBUTION WIDTH 17.3 % (11.0-15.5); WHITE BLOOD COUNT 6.2 X10e3 (4.0-10.5)
[2016-08-21 07:46] LABS: BUN/CREATININE RATIO 17.2; CALCIUM SERUM 8.6 mg/dL (8.4-10.2); CREATININE SERUM 2.5 mg/dL (0.6-1.4); GLOM FILT RATE Estimated 26.3 mL/min (>60); MAGNESIUM 2.2 mg/dL (1.6-3.0); POTASSIUM 3.5 mmol/L (3.5-5.1)
[2016-08-22 06:14] LABS: HEMOGLOBIN 10.6 gm/dL (13.0-16.0); MEAN CELL VOLUME 90.4 FL (83-96); MEAN CORPUSCULAR HEMOGLOBIN 28.3 PG (28-34); MEAN CORPUSCULAR HGB CONC 31.3 g/dL (30-36); MEAN PLATELET VOLUME 8.4 FL (6.5-11.5); RED BLOOD COUNT 3.76 X10e (3.90-5.60); RED CELL DISTRIBUTION WIDTH 17.2 % (11.0-15.5); WHITE BLOOD COUNT 7.1 X10e3 (4.0-10.5)
[2016-08-22 06:56] LABS: ALBUMIN SERUM 2.9 g/dL (3.5-5.0); BILIRUBIN,TOTAL 2.2 mg/dL (0.2-2.0); BUN/CREATININE RATIO 17.61; CALCIUM SERUM 8.4 mg/dL (8.4-10.2); CREATININE SERUM 2.1 mg/dL (0.6-1.4); GLOM FILT RATE Estimated 28.1 mL/min (>60); MAGNESIUM 2.1 mg/dL (1.6-3.0); PROTEIN TOTAL SERUM 5.5 g/dL (6.0-8.3)
[2016-08-22 14:33] LABS: HEMATOCRIT 33.5 % (38.0-50.0); HEMOGLOBIN 10.7 gm/dL (13.0-16.0); MEAN CELL VOLUME 89.3 FL (83-96); MEAN CORPUSCULAR HEMOGLOBIN 28.4 PG (28-34); MEAN CORPUSCULAR HGB CONC 31.8 g/dL (30-36); MEAN PLATELET VOLUME 8.7 FL (6.5-11.5); RED BLOOD COUNT 3.76 X10e (3.90-5.60); RED CELL DISTRIBUTION WIDTH 16.7 % (11.0-15.5); WHITE BLOOD COUNT 8.3 X10e3 (4.0-10.5)
[2016-08-23 05:38] LABS: HEMATOCRIT 32.5 % (38.0-50.0); HEMOGLOBIN 10.4 gm/dL (13.0-16.0); MEAN CELL VOLUME 88.9 FL (83-96); MEAN CORPUSCULAR HEMOGLOBIN 28.5 PG (28-34); MEAN CORPUSCULAR HGB CONC 32.1 g/dL (30-36); MEAN PLATELET VOLUME 8.6 FL (6.5-11.5); RED BLOOD COUNT 3.66 X10e (3.90-5.60); RED CELL DISTRIBUTION WIDTH 16.9 % (11.0-15.5); WHITE BLOOD COUNT 7.8 X10e3 (4.0-10.5)
[2016-08-23 06:24] LABS: BUN/CREATININE RATIO 16.95; CALCIUM SERUM 8.6 mg/dL (8.4-10.2); CREATININE SERUM 2.3 mg/dL (0.6-1.4); GLOM FILT RATE Estimated 25.1 mL/min (>60); POTASSIUM 3.5 mmol/L (3.5-5.1)
[2016-08-23] MEDS ORDERED: TYL325 PO (16:28)
[2016-08-23] MEDS ORDERED: COREG3.125 MG PO (16:32)
== END 2016-08-23 17:49 | disposition home health service (06) | DRG 291 ==
LOC: CED 10:56 → CEDOF 13:31 → C3A PCU 20:05
PROVIDERS: Emergency Medicine; Family Medicine; Internal Medicine Nephrology; Nurse Practitioner; Nurse Practitioner Family
DX: I13.0 Hypertensive heart and chronic kidney disease with heart failure and stage 1 through stage 4 chronic kidney disease, or unspecified chronic kidney disease (principal); I50.23 Acute on chronic systolic (congestive) heart failure; G93.41 Metabolic encephalopathy; J18.9 Pneumonia, unspecified organism; N18.4 Chronic kidney disease, stage 4 (severe); E11.649 Type 2 diabetes mellitus with hypoglycemia without coma; D69.59 Other secondary thrombocytopenia; N17.9 Acute kidney failure, unspecified; I27.2 Other secondary pulmonary hypertension; I49.5 Sick sinus syndrome; E87.1 Hypo-osmolality and hyponatremia; I48.0 Paroxysmal atrial fibrillation; Z79.01 Long term (current) use of anticoagulants; I25.2 Old myocardial infarction; Z95.0 Presence of cardiac pacemaker; E78.5 Hyperlipidemia, unspecified; I25.5 Ischemic cardiomyopathy; I34.0 Nonrheumatic mitral (valve) insufficiency; I36.1 Nonrheumatic tricuspid (valve) insufficiency; I25.10 Atherosclerotic heart disease of native coronary artery without angina pectoris; Z95.5 Presence of coronary angioplasty implant and graft; R94.5 Abnormal results of liver function studies; K06.8 Other specified disorders of gingiva and edentulous alveolar ridge; E83.119 Hemochromatosis, unspecified; D64.9 Anemia, unspecified; Z91.81 History of falling; Z96.652 Presence of left artificial knee joint
CPT/HCPCS: 36415; 70450; 71010; 71020; 80048; 80053; 80076; 81003; 82140; 82947; 83605; 83735; 83880; 84132; 84439; 84443; 85025; 85027; 85610; 85730; 87040; 93005; 94760; 96361; 96374; 97110; 97116; 97162; 97166; 97530; 99285; G8978-GP; G8979-GP; G8987-GO; G8988-GO; J0692; J1250; J1815; J1940; J2543; J3260; J3370

== ENCOUNTER 2016-09-17 12:20 | Inpatient (IN) | payer MEDICARE, BC ==
--- NOTE | ~2016-09-17 | CT4 ---
[facility] A Service of [facility] & [facility] / [facility] RADIOLOGY TEXT RESULTS PATIENT: MECCA LOYOLA LOCATION: A 317-01 : 31 UNIT #: [id number] AGE: [address]: JOSE SANCHEZ MD SEX: M ORDER DR: [id number] [facility] [address]. [place], [place] [address] [id number] E MR#: [id number] Acc #: [id number] NAME: MECCA LOYOLA : 1930 SEX: M STUDY DATE/TIME: 09/17/2016 16:01 UNIT: [facility] ROOM: STUDY DESCRIPTION: CT Abd and Pelv Wo Cont Attending Physician: Jaison Blunt M.D. Ordering Physician: Jaison Blunt M.D. Primary Care Physician: Blake Dhillon M.D. MEDICAL IMAGING REPORT This report is preliminary unless electronic signature is present EXAM CT abdomen and pelvis without contrast DATE 09/17/2016 HISTORY 85-year-old male with diminished level of consciousness, hypotension, and elevated lactate levels without obvious source of infection. Patient states he has not been feeling well for 2 weeks. Additional previous history of hemochromatosis, hypertension, congestive heart failure, myocardial infarction. COMPARISON CT abdomen and pelvis without contrast 05/26/2016 PROCEDURE 5 mm noncontrast axial images through the abdomen and pelvis. Enteric contrast was not administered. Sagittal and coronal reformatted images were obtained. This CT exam was performed with one or more of the following radiation dose reduction techniques: automatic exposure control, adjustment of mA and/or kV according to patient size, and iterative reconstruction. FINDINGS Abdomen findings: Gallbladder stones and/or sludge again noted without pericholecystic inflammation or biliary dilation. Noncontrast appearance of the liver, spleen, adrenals within normal limits. Pancreas is moderately atrophic with no acute or suspicious abnormalities seen. A single nonobstructing calculi versus renovascular calcifications are present in each renal hilum, 1 on the right measuring 3 mm, another on the left measuring 5 mm, unchanged from prior. Dense calcific atherosclerosis [facility] A Service of [facility] & [facility] / [facility] RADIOLOGY TEXT RESULTS PATIENT: MECCA LOYOLA LOCATION: A 317-01 : 31 UNIT #: [id number] AGE: [address]: JOSE SANCHEZ MD SEX: M ORDER DR: is seen within a nonaneurysmal abdominal aorta. The bowel appears grossly nonthickened and noninflamed, although not optimally assessed without the benefit of enteric contrast. The appendix is not visualized but no pericecal inflammation is appreciated. Pelvis findings: Urinary bladder and prostate gland are normal. There is moderate fecal distension of the rectum. There are small bilateral inguinal hernias containing only fat. Multilevel degenerative changes are seen throughout the spine. There appears to be osseous fusion across the T8-9 disc. There is a subacute-appearing left ninth rib fracture posterolaterally with developing callus formation. IMPRESSION 1. No acute findings are seen within the abdomen and pelvis. 2. The appendix is not visualized but no pericecal inflammation is appreciated. 3. Subacute-appearing left ninth rib fracture posterolaterally with signs of developing callus formation. No new or acute appearing osseous lesions are identified. 4. Small single nonobstructing stones versus renal hilar vascular calcifications, unchanged from prior. 5. Uncomplicated cholelithiasis. 6. Small bilateral inguinal hernias contain only fat. 7. CT chest performed on this same date has been dictated separately. Dictated by... Liliam Meyers M.D. THIS IS AN ELECTRONICALLY VERIFIED REPORT Liliam Meyers M.D. at 09/18/2016 7:34 AM [facility]/to TD: 09/17/2016 17:30 JOB #: [id number] MEDICAL IMAGING REPORT Page 1 of 1 COPY
--- NOTE | ~2016-09-17 | CT57 ---
[facility] A Service of [facility] RADIOLOGY TEXT RESULTS PATIENT: MECCA LOYOLA LOCATION: C3A 317-01 : 31 UNIT #: [id number] AGE: [address]: Tamara Mike MD SEX: M ORDER DR: [id number] [facility] [address] [place], [place] [address] [id number] E MR#: [id number] Acc #: [id number] NAME: MECCA LOYOLA : 1930 SEX: M STUDY DATE/TIME: 09/17/2016 16:01 UNIT: [facility] ROOM: STUDY DESCRIPTION: CT Chest Wo Cont Attending Physician: Jaison Blunt M.D. Ordering Physician: Jaison Blunt M.D. Primary Care Physician: Blake Dhillon M.D. MEDICAL IMAGING REPORT This report is preliminary unless electronic signature is present EXAM Chest CT without contrast. DATE OF EXAM 09/17/2016 HISTORY Patient not feeling well for the past 2 weeks with decreased level of consciousness, hypotension and elevated lactate. Concern for sepsis and infectious source in the lungs. TECHNIQUE Axial images were obtained without contrast and evaluated at lung and mediastinal windows. NOTE: This CT exam was performed with one or more of the following radiation dose reduction techniques: automatic exposure control, adjustment of mA and/or kV according to patient size, and iterative reconstruction. FINDINGS Chest images at mediastinal window show no enlarged mediastinal or hilar lymph nodes. There is no evidence of pleural or pericardial fluid. Extensive coronary calcifications are seen. Lung window imaging shows mild to moderate fibrotic changes in both lower lung bedolla with no evidence of alveolar consolidation or endobronchial obstruction. There is mild traction bronchiectasis at both lung bases. The upper lung bedolla are clear. 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 No evidence of pneumonia. Dictated by... [facility] A Service of [facility] & [facility] RADIOLOGY TEXT RESULTS PATIENT: MECCA LOYOLA LOCATION: [facility] 317-01 : 31 UNIT #: [id number] AGE: [address]: Tamara Mike MD SEX: M ORDER DR: Adrian Arenas M.D. THIS IS AN ELECTRONICALLY VERIFIED REPORT Adrian Arenas M.D. at 09/18/2016 2:15 PM SANJAY/lan TD: 09/17/2016 16:58 JOB #: [id number] MEDICAL IMAGING REPORT Page 1 of 1 COPY
--- NOTE | ~2016-09-17 | HP ---
Unit #: [id number] #: [id number] Patient: MECCA LOYOLA [id number] [address] [place], [place] [address] [id number] I MR#: [id number] NAME: MECCA LOYOLA ROOM: 54408 Age: 85 Sex: M Admission Date: 09/17/2016 : 1930 Attending Physician: Marixa Adkins M.D. Primary Care Physician: Blake Dhillon M.D. HISTORY AND PHYSICAL CHIEF COMPLAINT The decreased loss of consciousness. HISTORY OF PRESENT ILLNESS The patient is an 85-year-old male with a history of medical problems including chronic kidney disease stage 4, brought to the emergency room with a sugar of 55. The patient was also found to be hypotensive at the time of arrival with blood pressures in the 94/57. Patient received the bolus of 500 in the emergency room and the patient showed improvement. The patient stated the patient has been on the Lantus and Tradjenta for the sugars and has not received the Lantus this morning. The patient stated the patient's oral intake has been adequate. The patient was found to have lactic acidosis with a lactate of 4 and WBC count of 235,000. The patient had a workup with a CT of the chest and abdomen that shows no acute findings and patient is being admitted for the above reasons. PAST MEDICAL HISTORY History of atrial fibrillation, sick sinus syndrome, status post pacemaker, chronic systolic heart failure with an EF of 30% to 35%, coronary artery disease, CKD stage 4, history of frequent falls, anemia. The patient also has a history of amiodarone-induced hypothyroidism, history of left eye histoplasmosis. PAST SURGICAL HISTORY History of a total knee replacement with revision of the left knee, left rotator cuff repair, basal cell carcinoma removed. ALLERGIES No known drug allergies. HOME MEDICATIONS He is on famotidine, aspirin, Synthroid, Imdur, Tradjenta, Ventolin, Tylenol, Coreg, Flonase and amiodarone and Demadex, simvastatin, Lantus and bimatoprost. SOCIAL HISTORY The patient is , denies history of smoking, drinking or any illicit drug abuse. FAMILY HISTORY Family history is positive for coronary artery disease. REVIEW OF SYMPTOMS Unit #: [id number] #: [id number] Patient: MECCA LOYOLA Fourteen-point review of symptoms performed and only pertinent positive findings as described above, remaining are negative. PHYSICAL EXAMINATION GENERAL APPEARANCE: On examination the patient is lying on a bed not in acute distress. VITAL SIGNS: Temperature 97.6, pulse 94, respiratory rate 22, blood pressure 94/27, sating 95% at room air. HEENT: Head atraumatic, normocephalic. Pupils equal, round and reacting to light and accommodation. Dry mucous membranes. Positive for pallor. NECK: Supple. LUNGS: Decreased air entry at the bases. CHEST: Multiple bruises on the upper chest. HEART: Irregular rate and rhythm. Positive for murmur. ABDOMEN: Soft, positive bowel sounds. EXTREMITIES: The patient has pedal edema 1 to +2 and bruit of the fistula in the right upper extremity. NEUROLOGIC: The patient is alert, awake, oriented x2. DIAGNOSTIC STUDIES LABORATORY DATA: Glucose 158, BUN 30, creatinine 2.9, sodium 129, potassium 2.1, chloride 88, bicarb 26, calcium 8.2, magnesium 1.6, total protein 5.7, albumin 2.7, AST 41, ALT 25, alkaline phosphatase 67, BNP is 1659, hemoglobin A1C is 7.8, lactic acid is 4.2 down to 2.9 and INR is 1.2, WBC 32.3, hemoglobin 13, hematocrit 40.8, platelets 111, neutrophils 95.3, bandemia of 6. UA shows 1+ urobilinogen. CARDIOVASCULAR: EKG shows accelerated junctional rhythm. IMAGING: The CT of the chest shows pulmonary fibrosis, no pneumonia. CT of the abdomen and the pelvis shows no acute findings. ASSESSMENT 1. Altered mental status. 2. Hypoglycemia. 3. Chronic systolic failure. 4. Chronic kidney disease stage 4. 5. Lactic acidosis. 6. Hypokalemia. PLAN 1. Plan is to admit the patient to the inpatient with the telemetry. 2. Patient will have a Cardiology consult for chronic systolic failure with a BNP of 1659. 3. Patient will also have a Renal consult for the hypokalemia, hyponatremia and chronic kidney disease. 4. Continue with the Accu-Cheks. 5. Replace the potassium per protocol. 6. No evidence of infection on the UA and the chest x-ray and the CT of the chest and abdomen. 7. Will repeat the labs again and probably lactic acidosis from the hypotension and altered mental status and the hypoglycemia. 8. Will hold the Lantus and the Tradjenta. Further recommendations will follow as more lab results are available. Unit #: [id number] #: [id number] Patient: MECCA LOYOLA Dictated by Leigh Velez/nicole TD: 09/17/2016 18:36 JOB #: [id number] HISTORY AND PHYSICAL Page 1 of 1 X X HISTORY AND PHYSICAL
--- NOTE | ~2016-09-17 | CO ---
Unit #: [id number] #: [id number] Patient: MECCA LOYOLA [id number] [address] [place], [place] [address] [id number] MR#: [id number] NAME: MECCA LOYOLA ROOM: 317 Age: 85 Sex: M Admission Date: 09/17/2016 : 1930 Attending Physician: Tamara Mike M.D. Primary Care Physician: Blake Dhillon M.D. Consultation Date: 09/18/2016 CONSULTATION REPORT REASON FOR CONSULT Known chronic kidney disease stage 4. HISTORY OF PRESENT ILLNESS Mr. Loyola is a very pleasant gentleman 85 years old whom we were asked to see for management of his chronic kidney disease. He is well known to us as we saw him on a recent admission here. Based on admission labs, his kidney function actually looks pretty stable. He was admitted for mental status changes and a low blood sugar of 55. He is noted to be on Tradjenta and Lantus at home. Hemoglobin is currently pending. Patient has been seen by Cardiology as he has a significant history of heart failure and has been started on some IV Bumex and dobutamine. It looks like he has been maintained on Demadex at home with a pretty good result. He denies any urinary complaints. There have been no reports of nausea, vomiting, or diarrhea. PAST MEDICAL HISTORY 1. Chronic kidney disease stage 4. 2. Congestive heart failure with an EF of 30%. 3. Coronary artery disease. 4. Sick sinus syndrome and atrial fibrillation requiring pacemaker. 5. Hypothyroidism. 6. Diabetes. PAST SURGICAL HISTORY 1. Pacemaker placement. 2. Right arm fistula placement. 3. Knee replacements. 4. Rotator cuff repair. 5. Coronary stents. 6. Basal cell cancer removed. HOME MEDICATIONS 1. Cordarone 200 mg daily. 2. Demadex 40 mg twice daily. 3. Simvastatin 40 mg daily. 4. Lantus insulin 14 units before breakfast. 5. Bimatoprost eyedrops every evening. 6. Pepcid 20 mg twice daily. 7. Baby aspirin daily. 8. Synthroid 112 mcg daily. 9. Imdur 30 mg daily. 10. Tradjenta 5 mg daily on hold. 11. Ventolin inhaler. Unit #: [id number] #: [id number] Patient: MECCA LOYOLA 12. Tylenol p.r.n. 13. Coreg 3.125 mg twice daily. 14. Flonase inhaler. ALLERGIES No known drug allergies. FAMILY HISTORY Heart disease. No family history of kidney problems that I am aware of. SOCIAL HISTORY Patient is a former smoker. No alcohol or drug abuse. He is . No family present at this time. REVIEW OF SYSTEMS A complete 12-point review of systems was completed with the above findings. In addition, it does look like his mental status has improved as he is answering questions appropriately today. No reports of fevers or chills, no nosebleed, sore throat, or earache, no chest pain or palpitations, no cough or hemoptysis, no shortness of breath, no bright red blood per rectum or melena, no dysuria, and no hematuria. He does have some mild swelling in his legs more left leg than right. No rashes or itching, no flank pain, no night sweats or hot flashes, no intolerance to heat or cold, and no bleeding issues. Unless otherwise indicated, the review of systems was negative. PHYSICAL EXAMINATION VITAL SIGNS: Afebrile, pulse 59, respiratory rate 18, and blood pressure 97/51. I/Os are positive by 357 mL. GENERAL: This is a pleasant, elderly, 85-year-old male who is alert and currently in no acute distress. HEENT: Head is atraumatic and normocephalic. Eyes show pink conjunctivae with no scleral icterus. No nasal drainage or nosebleed. Oropharynx is moist without thrush. NECK: No rigidity. HEART: Paced and regular. He does have a murmur present. No gallop or rub appreciated. LUNGS: Clear anteriorly with no wheezing or rhonchi. Breathing is nonlabored. ABDOMEN: Soft, nontender, and nondistended. Bowel sounds are present. EXTREMITIES: Patient has trace lower extremity edema more so in the left leg than the right. CHEST WALL: He does have a left pacemaker in place. MUSCULOSKELETAL: No joint effusions noted. VASCULAR: Patient has a small, immature fistula in his right forearm. NEUROLOGICAL: Patient does have some generalized weakness but no focal deficits. LYMPHATICS: No neck cervical lymphadenopathy. PSYCHIATRIC: Patient continues to have scattered bruising. DIAGNOSTIC STUDIES LABORATORY: Blood sugar has come up to 299. Blood cultures are negative. Chemistry earlier today: Sodium 128, potassium 4.2, chloride 93, bicarb 26, glucose 186, BUN 32, and creatinine 2.5. White count 24, hemoglobin 11, and platelet count 81,000. Potassium level earlier was actually low at 2.8. Lactic acid level was high at 2.9. Magnesium 1.6. Admission potassium was just 2.1 and admission creatinine was 2.9. BNP 1600. Admission urinalysis was bland. Admission lactic acid level was as high Unit #: [id number] #: [id number] Patient: MECCA LOYOLA as 4.2. INR was 1.2. Prior creatinine on discharge in July was 2.3. IMAGING: CT scan of the chest and abdomen did show some nonobstructing kidney stones. There was no pulmonary edema on his chest CT, but he did have fibrosis. No evidence of pneumonia. Chest x-ray showed no active disease. ASSESSMENT AND PLAN 1. Chronic kidney disease stage 4. Patient's kidney numbers actually look fairly stable today. He certainly has a significant prerenal azotemia with his heart failure and is getting closer to needing dialysis, but I do not see any indication to start now. 2. Congestive heart failure which is systolic in nature. The patient looks fairly well compensated, and Cardiology has added some dobutamine and Bumex for treatment per their orders. 3. Hyponatremia. This is likely related to his kidney disease and congestive heart failure. He is on a fluid restriction and on a loop diuretic. 4. 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 Sugars were low on admission. His medications may need to be decreased, and we will update a hemoglobin A1c to see. 5. History of atrial fibrillation. 6. Mental status changes which seem to be better. 7. Nephrolithiasis which is nonobstructing. I would like to thank Dr. Mike for this consultation and the opportunity to participate in evaluation and care of Mr. Lyoola. Dictated by... Harry Rojas Jr., M.D. ETHAN/lor TD: 09/18/2016 16:42 JOB #: [id number] CONSULTATION REPORT Page 1 of 1 X Harry Rojas MD X CONSULTATION REPORT
--- NOTE | ~2016-09-17 | CO ---
Unit #: [id number] #: [id number] Patient: MECCA LOYOLA [id number] [address] [place], [place] [address] [id number] I MR#: [id number] NAME: MECCA LOYOLA ROOM: [facility] Age: 85 Sex: M Admission Date: 09/17/2016 : 1930 Attending Physician: Tamara Mike M.D. Primary Care Physician: Blake Dhillon M.D. Consultation Date: 09/18/2016 CONSULTATION REPORT REASON FOR CONSULTATION CHF. HISTORY OF PRESENT ILLNESS This is an 85-year-old pleasant elderly male, well known to Dr. Jaeger. He has a past medical history of ischemic cardiomyopathy, LVEF of 30% to 35%, systolic congestive heart failure, coronary artery disease with stents to the left circumflex, LAD and RCA, paroxysmal atrial fibrillation, not currently on any anticoagulation. According to the patient's daughter, who I spoke with over the phone, the patient had been on Coumadin, which was extremely difficult to regulate. He had been changed over to Eliquis but appears he was taken off of Eliquis his last admission. States he has been off it for approximately 3 weeks. He has permanent pacemaker placement [employer] device in 2011 secondary to sick sinus syndrome, diabetes mellitus, history of previous GI bleed, valvular heart disease with severe mitral regurgitation, tricuspid regurgitation and pulmonary hypertension, history of amiodarone-induced hypothyroidism. The patient presented due to altered mental status and hypoglycemia. According to the son, who is currently at bedside, his sister went over to check on him in the morning and states he is usually up moving around; however, he was still in bed. Got him up, checked his blood sugar, and his sugar was in the 40s. He had altered mental state; therefore, he was brought in to the emergency room for evaluation of that reason. He denies any complaints of PND, orthopnea, chest pain, syncope, near syncope or palpitations. He denies any nausea, vomiting or abdominal pain. The patient states he has been eating okay, but according to the family, his appetite waxes and wanes. On arrival to the ER the patient was noted to be slightly hypotensive with blood pressure in the 90s/50s. He did receive IV fluid bolus. He also had a lactic acid of 4 and a white count of 32,000. At present he is currently AV paced. Osgrz-xm-eudc troponin has been negative. Chest x-ray is suggestive of congestive heart failure. BNP is elevated at 1,659, and the patient does have a sodium level of 128. We were asked to see for evaluation of CHF. PAST MEDICAL HISTORY 1. Ischemic cardiomyopathy; 03/2015 two-D echo showed LVEF of 30% to 35% with severe septal hypokinesis, apical akinesis, oted-fn-glauxnfe mitral regurgitation, gtch-dg-knrvrsec tricuspid regurgitation and lnrg-fp-loavtzws aortic regurgitation with elevated RVSP of 40 to 50 mmHg. Unit #: [id number] #: [id number] Patient: MECCA LOYOLA 2. History of coronary artery disease with prior ND in 2000, status post PCI and stent to the LAD, with a subsequent cardiac arrest at that time. 3. In 2009 he had angioplasty and stents to the RCA and left circumflex. 4. Paroxysmal atrial fibrillation. Had been on Coumadin. This was discontinued secondary to difficulty maintaining INR. The patient was changed over to Eliquis. Family was concerned about the increase in bruising. According to the daughter, during his last admission, this was discontinued, and he has been off of Eliquis for the last 3 weeks. 5. Chronic kidney disease. 6. Permanent pacemaker, [employer] device, [address] Ornelas for sick sinus syndrome. 7. History of amiodarone-induced hypothyroidism. 8. History of hypertension. 9. Diabetes mellitus type 2. 10. History of GI bleed. PAST SURGICAL HISTORY 1. Permanent pacemaker, [employer], 2011. 2. Left rotator cuff tear. 3. Total knee surgery, bilateral. 4. Basal cell carcinoma removal. HOME MEDICATIONS 1. Amiodarone 200 mg p.o. daily. 2. Demadex 40 mg p.o. b.i.d. 3. Simvastatin 40 mg p.o. daily. 4. Lantus 14 units subcu before breakfast. 5. Bimatoprost 1 drop both eyes every evening. 6. Famotidine 20 mg p.o. b.i.d. 7. Aspirin 81 mg p.o. daily. 8. Synthroid 112 mcg p.o. daily. 9. Imdur 30 mg p.o. daily. 10. Tradjenta 5 mg p.o. daily. 11. Ventolin 4 puff inhalation q.i.d. p.r.n. 12. Tylenol 650 mg p.o. q.6 hours p.r.n. pain. 13. Carvedilol 3.125 mg p.o. b.i.d. 14. Flonase nasal spray b.i.d. p.r.n. ALLERGIES No known drug allergies. SOCIAL HISTORY He is . Denies tobacco use, illicit drugs or alcohol. FAMILY HISTORY Positive for coronary artery disease. REVIEW OF SYSTEMS Negative except for what was stated above in the HPI. Positive for fatigue, easy bruising. PHYSICAL EXAM GENERAL: This is a pleasant elderly 85-year-old male who is in no acute distress. His son is currently at bedside. VITAL SIGNS: Temperature 97.4, respiratory rate 18-20, pulse 60s and paced, blood pressure 97/51. BMI is 25. HEENT: Head is atraumatic, normocephalic. Pupils are equal and round. Unit #: [id number] #: [id number] Patient: MECCA LOYOLA NECK: Trachea is midline. No thyromegaly. No lymphadenopathy. No carotid bruits. HEART: S1, S2. Heart sounds are normal. A grade 2/6 systolic murmur present. No gallop or rub. CHEST: Clear anterior. Some fine rales are auscultated at bases. No rhonchi or wheezes. ABDOMEN: Obese, soft, nontender, nondistended. Bowel sounds are present. EXTREMITIES: Lower extremities - Pulses are palpable. He has 1+ leg edema. SKIN: The patient has multiple areas of bruising noted on his chest wall and chronic venous stasis changes in his lower extremities, as well as fragile skin. NEUROLOGIC: He is awake, alert and oriented. He moves extremities equally, follows commands. He is hard of hearing. DIAGNOSTIC STUDIES IMAGING: Chest x-ray has been reviewed by Dr. Jaeger. Appears consistent with congestive heart failure. LABORATORY: Glucose 186, BUN 32, creatinine 2.5, sodium 128, potassium 4.2, chloride 93, CO2 26, magnesium 1.6. Initial xfqai-vo-qfyj troponin was negative. BNP was 1,659. Hemoglobin 11.6, hematocrit 35.7, WBC 24,000, platelet count 81,000. He currently has blood cultures, which are pending. CARDIOVASCULAR: EKG shows accelerated junctional rhythm, 90 beats per minute. However, there is quite a bit of artifact present. Currently he is AV paced, rate in the 60s. IMPRESSION 1. Altered mental state secondary to hypoglycemia with unknown etiology of his hypoglycemia. 2. Acute on chronic systolic congestive heart failure as evidenced by an elevated BNP and chest x-ray consistent with congestive heart failure. 3. Hyponatremia secondary to volume overload. 4. Stable angina. 5. Ischemic cardiomyopathy. LVEF of 30% to 35% with valvular heart disease, severe mitral regurgitation, tricuspid regurgitation and pulmonary hypertension. 6. Permanent atrial fibrillation. Had been on Coumadin, which was discontinued secondary to inability to regulate INR. Recently changed over to Eliquis; however, have spoken with daughter regarding this, and she states he was discontinued from the Eliquis his last admission and has been off it for approximately the last 3 weeks. 7. Status post permanent pacemaker placement in 2011, [employer] device, secondary to sick sinus syndrome. 8. Chronic kidney disease. 9. Diabetes mellitus. 10. Hypertension. 11. Hyperlipidemia. 12. History of GI bleed. 13. History of amiodarone-induced hypothyroidism. PLAN We have been asked to see the patient secondary to acute on chronic systolic congestive heart failure. At this time will change his Demadex to IV Bumex 2 mg b.i.d. He will also get a short course of IV dobutamine, and he will be placed on strict fluid restrictions with 2,000 mL daily. Unit #: [id number] #: [id number] Patient: MECCA LOYOLA The patient will have labs in the a.m., which include BMP and a BNP. Could consider endocrine evaluation, as well as hematology consultation secondary to thrombocytopenia. The patient is not a candidate for ZHANG or ARB therapy secondary to his chronic kidney disease. His carvedilol has been discontinued while on dobutamine. This will need to be resumed once dobutamine is off. Thank you for asking us to see this pleasant patient. We will follow along with you. We appreciate the consult. Dictated by... Indiana Terrance, A.Leigh Harris/bronson TD: 09/18/2016 15:53 JOB #: [id number] CONSULTATION REPORT Page 1 of 1 X Selena Carlos APRN CONSULTATION REPORT
--- NOTE | ~2016-09-17 | CO ---
Unit #: [id number] #: [id number] Patient: ALAN LOYOLA [id number] [address] [address] [id number] I MR#: [id number] NAME: ALAN LOYOLA ROOM: [facility] Age: 85 Sex: M Admission Date: 09/17/2016 : 1930 Attending Physician: Tamara Mike M.D. Primary Care Physician: Blake Dhillon M.D. Requesting Physician: Tamara Mike M.D. Consultation Date: 09/19/2016 CONSULTATION REPORT REASON FOR CONSULTATION Thrombocytopenia. HISTORY OF PRESENT ILLNESS Mr. Bro Loyola is 85 years old and admitted to the hospital on September 17 with hypotension and a blood sugar of 55 at home. In the emergency room, he was bolused with IV fluids and his blood sugar was corrected. His platelet count at the time of admission was low at 111,000, white count was 32.3 and his hemoglobin was 13. Platelet count had subsequently dropped to today's platelet count of 75,000 without any evidence of bleeding. White count currently 7.9 and hemoglobin is 11. Looking at past records, Mr. Loyola has had thrombocytopenia dating back to 2014. His platelet count on February 06, 2015 was 123. He has had ascites with low platelet counts with another platelet count, March 2016 being 64 and several multiple low platelets in between. Mr. Loyola was on Eliquis 2.4 mg twice a day at the time of admission for his atrial fibrillation. No history of hepatitis. No history of liver disease in the past. PAST MEDICAL HISTORY 1. History of chronic kidney disease, stage IV. 2. Type 2 diabetes mellitus. 3. History of atrial fibrillation, sick sinus syndrome for which he had a permanent pacemaker. He also has congestive heart failure with ejection fraction of 30% to 35%. His most recent BNP is 1120. 4. He has history of frequent falls. 5. History of hypothyroidism. 6. Histoplasmosis of the eye. 7. Coronary artery disease. 8. Type 2 diabetes. PAST SURGICAL HISTORY Includes: 1. Total knee replacement and revision of left knee. 2. Rotator cuff repair. 3. Skin cancers. ALLERGIES No known medication allergies. MEDICATIONS AT THE TIME OF ADMISSION TO THE HOSPITAL Include: 1. Pepcid 2. Aspirin 3. Synthroid Unit #: [id number] #: [id number] Patient: ALAN LOYOLA 4. Imdur 5. Tradjenta 6. Ventolin 7. Tylenol 8. Coreg 9. Flonase 10. Amiodarone 11. Demadex 12. Simvastatin 13. Lantus 14. Eliquis FAMILY HISTORY Negative for blood disorders. SOCIAL HISTORY He does not smoke or drink any alcohol. He is and lives with his . REVIEW OF SYSTEMS Fourteen point review of systems is taken. CONSTITUTIONAL: Fatigue, weakness but no recent changes in uptake and weight. HEENT: Eyes, negative. Ears, nose, mouth, and throat: Negative. CARDIOVASCULAR: Shortness of breathing which is chronic without any increase in change. No chest pain. RESPIRATORY: Shortness of breathing. GASTROINTESTINAL: No recent changes in bowel habits. GENITOURINARY: Negative. NEUROLOGIC: Numbness of his feet. He was confused at the time of admission likely related to slow blood pressure and hypoglycemia. ENDOCRINE: Hypoglycemic at the time of admission. HEMATOLOGIC: Thrombocytopenia. LYMPHATIC: Negative. PSYCHIATRIC: Negative. ALLERGIC: Negative. SKIN: Bruising of both arms and legs related to his long-term anticoagulation. PHYSICAL EXAMINATION GENERAL: Pleasant elderly man lying in bed in no distress accompanied by his family. VITAL SIGNS: Temperature 97.5, pulse rate is 58, respiratory rate is 18, blood pressure 100/48. O2 sats 98% on room air. HEENT: Eyes: Pupils equal, react well to light. Mucous membranes are moist. NECK: No adenopathy, JVD, or thyromegaly. CARDIOVASCULAR SYSTEM: First and second heart sounds are heard and regular. No murmurs, gallops, or rubs. LUNGS: Chest expansion symmetric, bilateral normal equal breath sounds. ABDOMEN: Soft and nontender. Bowel sounds are present. No organomegaly. EXTREMITIES: Warm, with good pulses. No cyanosis or clubbing with 1+ pitting edema. NEUROLOGIC EXAMINATION: He is awake, alert, and oriented x3, without any focal findings. SKIN: Hemosiderin discoloration of both arms and legs related to multiple bruises in the past. PSYCHIATRIC: Normal affect. Unit #: [id number] #: [id number] Patient: ALAN LOYOLA DIAGNOSTIC STUDIES LABORATORY: CBC as discussed today shows a white count of 11.9, hemoglobin 11, platelet count is 75,000, RDW is 19.3. Basic metabolic panel shows a BUN of 31, creatinine is 2.3, phosphorous 1.7, magnesium 1., BNP is 1120. Blood cultures are negative. IMAGING: I personally reviewed CT scans of the chest and abdomen and pelvis. He has got no splenomegaly or any significant pathology to account for this thrombocytopenia. ASSESSMENT/PLAN Alan Loyola is 85 years old with a history of coronary artery disease, chronic congestive heart failure, type 2 diabetes mellitus, and chronic kidney disease, stage IV admitted with hypotension and hypoglycemia and weakness. He is thrombocytopenic which has worsened following his admission but has been present to a degree since January 2015. I think the most likely explanation of his thrombocytopenia is related to chronic congestive hepatomegaly related to his elevated BNP and congestive heart failure. His CT scan did show his spleen size to be normal. His likely events which precipitated his admission were also contributory to his drop in platelet counts. Discussed this with the patient and multiple family members at bedside, will review blood cell smear. RECOMMENDATIONS 1. Monitor CBC daily. If platelet count remains stable can resume Eliquis 2.5 mg twice a day given his risk of embolic stroke is high. 2. Anemia workup with iron studies. Thank you for allowing me to participate in the care. Dictated by... Panchito Segura M.D. LEEANNA/kate TD: 09/20/2016 07:24 JOB #: [id number] CONSULTATION REPORT Page 1 of 1 X Panchito Segura MD CONSULTATION REPORT
--- NOTE | ~2016-09-17 | DS ---
Unit #: [id number] #: [id number] Patient: MECCA LOYOLA [id number] [address] [place], [place] [address] [id number] I MR#: [id number] NAME: MECCA LOYOLA ROOM: [facility] Age: 85 Sex: M Admission Date: 09/17/2016 : 1930 Discharge Date: 09/21/2016 Attending Physician: Tamara Mike M.D. Primary Care Physician: Blake Dhillon M.D. DISCHARGE SUMMARY REASON FOR ADMISSION Mental status changes. HISTORY OF PRESENT ILLNESS/HOSPITAL COURSE Patient is an 85-year-old male with recurrent hospital admission secondary to mental status changes, hyperglycemia, as well as systolic heart failure who presented with decreased level of consciousness. He was found to be hypotensive at the time of arrival with blood pressures of 94/57. He received a normal saline bolus. He was also noted to have an elevated lactate of 4 and white count of 23,000. CT chest, abdomen, and pelvis showed no acute findings. Patient was admitted secondary to above. Through hospital course, it was noted that he had recurrent hypoglycemia episodes as well as very labile blood sugars. His hemoglobin A1c returned at 4.9%. Altogether, his diabetic medications were discontinued. In regards to his history of chronic kidney disease as well as heart failure, consultations were placed to both Dr. Rojas as well as Dr. Jaeger of cardiology services. While he was here, he was initially placed on dobutamine after it was noted his BNP was elevated and he was noted to be in acute systolic heart failure. This was later discontinued and patient remained stable. At time of discharge, his creatinine currently stands at 1.8. His hemoglobin is 11.9 and white count 7.8. Secondary to history of atrial fibrillation as well as thrombocytopenia, consultation was placed to Dr. Segura of hematology services. In the past, while the patient has been on Eliquis, his platelets had drifted downwards. Therefore, we placed consultation to hematology. Hematology services started the patient on Eliquis 2.5 mg p.o. b.i.d. and this will be followed up at time of discharge as an outpatient. At time of discharge, patient will be discharged home in stable condition. There will be no further diabetic medications secondary to recurrent hypoglycemia and he will be followed as an outpatient closely. Unit #: [id number] #: [id number] Patient: MECCA LOYOLA FINAL DISCHARGE DIAGNOSES 1. Mental status change. 2. Diabetes type 2 with prior insulin dependent use. 3. Acute on chronic systolic heart failure. 4. Volume overload. 5. Acute on chronic kidney disease, baseline creatinine close to 1.8-2. 6. Prior history of myocardial infarction. 7. Paroxysmal atrial fibrillation on chronic anticoagulation with Eliquis. 8. Chronic thrombocytopenia. Platelets baseline approximately 75. 9. Chronic deconditioning. 10. Recurrent bruising. 11. 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 12. Hyponatremia, recurrent. 13. Hypertension. 14. Hyperlipidemia. DISCHARGE MEDICATIONS Remain the same as home medications with the exception of Tradjenta as well as Lantus both being discontinued and Eliquis 2.5 mg p.o. b.i.d. being added. It should be noted that cardiology services will be reviewing final discharge medications prior to discharge. DISCHARGE INSTRUCTIONS 1. Patient is to follow up with Dr. Jaeger in 7-10 days. 2. Follow up with his primary care physician in 7-10 days. PROGNOSIS Overall, long-term prognosis guarded. Dictated by... Tamara Mike M.D. YAAKOV/la TD: 09/26/2016 08:04 JOB #: [id number] DISCHARGE SUMMARY Page 1 of 1 X Tamara Mike MD X DISCHARGE SUMMARY
--- NOTE | ~2016-09-17 | EKG ---
PATIENT: MECCA LOYOLA UNIT #: [id number] Ventricular Rate: 90 BPM Atrial Rate: 82 BPM QRS Duration: 100 ms Q-T Interval: 442 ms QTC Calculation(Bezet): 540 ms Calculated R [place]: -14 degrees Calculated T [place]: -147 degrees Diagnosis Line: Possible Accelerated Junctional rhythm Diagnosis Line: Marked ST abnormality, possible inferior Diagnosis Line: subendocardial injury Diagnosis Line: Prolonged QT Diagnosis Line: Abnormal ECG Diagnosis Line: When compared with ECG of 18-AUG-2016 11:06, Diagnosis Line: Junctional rhythm has replaced Electronic Diagnosis Line: ventricular pacemaker Diagnosis Line: Vent. rate has increased BY 30 BPM Diagnosis Line: Muscle tremor Diagnosis Line: Confirmed by CRUZ TIRADO MD ([id number]) on 09/18/2016 Diagnosis Line: 4:55:02 AM INTERPRETING MD: CANDIDA BARRIOS
--- NOTE | ~2016-09-17 | CR72 ---
[facility] A Service of [facility] RADIOLOGY TEXT RESULTS PATIENT: MECCA LOYOLA LOCATION: [facility] 317-01 : 31 UNIT #: [id number] AGE: [address]: JOSE SANCHEZ MD SEX: M ORDER DR: [id number] [facility] [address] [place], [place] [address] [id number] E MR#: [id number] Acc #: [id number] NAME: MECCA LOYOLA : 1930 SEX: M STUDY DATE/TIME: 09/17/2016 12:20 UNIT: [facility] ROOM: STUDY DESCRIPTION: CR Chest Single View Portable Attending Physician: Jaison Blunt M.D. Ordering Physician: Jaison Blunt M.D. Primary Care Physician: Blake Dhillon M.D. MEDICAL IMAGING REPORT This report is preliminary unless electronic signature is present EXAM Portable chest INDICATION Low blood sugar today, shortness of breath. COMPARISON 08/19/2016. FINDINGS The patient is rotated. Heart size is not significantly changed. No acute-appearing infiltrate. Pacemaker. IMPRESSION No active disease. Dictated by... Santy Wiley M.D. THIS IS AN ELECTRONICALLY VERIFIED REPORT Santy Wiley M.D. at 09/18/2016 7:53 AM ADRIANA/brooklynn TD: 09/17/2016 13:10 JOB #: [id number] MEDICAL IMAGING REPORT Page 1 of 1 COPY
[~2016-09-17 12:20] MED LIST changes: +APRESOLINE10 M1 PO; +COREG3.125 MG PO; +DEMADEX PO; +IMDUR-ER30 M1 PO; +METOPROLOL TAR25 MG PO; +TRADJENTA5 MG PO; +TYL325 PO
[2016-09-17 12:32] LABS: INR 1.2; PROTHROMBIN TIME (PATIENT) 13.2 SECONDS (9.6-11.5)
[2016-09-17 12:44] LABS: POC - CKMB <1.0 ng/mL (0.0-7.9); POC - TROPONIN <0.05 ng/mL (<=0.05)
[2016-09-17 12:46] LABS: URINE SOURCE CATH
[2016-09-17 12:53] LABS: URINE APPEARANCE CLEAR; URINE BILIRUBIN NEG (NEG); URINE BLOOD NEG (NEG); URINE COLOR YELLOW; URINE GLUCOSE NEG (NEG); URINE KETONE NEG (NEG); URINE LEUKOCYTE ESTERASE NEG (NEG); URINE NITRATE NEG (NEG); URINE PROTEIN NEG (NEG); URINE SPECIFIC GRAVITY 1.006 (1.003-1.035)
[2016-09-17 12:56] LABS: CULTURE INDICATED? NO
[2016-09-17 12:56] LABS: ALBUMIN SERUM 2.7 g/dL (3.5-5.0); BUN/CREATININE RATIO 10.34; CALCIUM SERUM 8.2 mg/dL (8.4-10.2); CREATININE SERUM 2.9 mg/dL (0.6-1.4); PROTEIN TOTAL SERUM 5.7 g/dL (6.0-8.3)
[2016-09-17 13:00] LABS: POTASSIUM 2.1 mmol/L (3.5-5.1)
[2016-09-17] MEDS ORDERED: FLONASE 0.05% N16 G1 (14:01)
[2016-09-17 14:53] LABS: BASOPHIL# 0.1 X10e3 (0-0.3); BASOPHIL% 0.2 % (0-2.5); HEMATOCRIT 40.8 % (38.0-50.0); LYMPHOCYTE# 0.3 X10e3 (1.0-3.5); LYMPHOCYTE% 0.9 % (17.0-45.0); MEAN CELL VOLUME 88.3 FL (83-96); MEAN CORPUSCULAR HEMOGLOBIN 28.1 PG (28-34); MEAN CORPUSCULAR HGB CONC 31.8 g/dL (30-36); MONOCYTE# 1.2 X10e3 (0-1.0); MONOCYTE% 3.6 % (3.0-12.0); NEUTROPHIL# 30.7 X10e3 (1.5-7.1); NEUTROPHIL% 95.3 % (40-75); PLATELET COUNT 111 X10e3 (140-420); RED BLOOD COUNT 4.62 X10e (3.90-5.60); RED CELL DISTRIBUTION WIDTH 18.9 % (11.0-15.5); WHITE BLOOD COUNT 32.3 X10e3 (4.0-10.5)
[2016-09-17 14:54] LABS: DIFF IND YES
[2016-09-17 15:22] LABS: PLATELET ESTIMATE DECREASED (NORMAL); RBC NORMAL YES
[2016-09-18 05:57] LABS: HEMATOCRIT 35.7 % (38.0-50.0); HEMOGLOBIN 11.6 gm/dL (13.0-16.0); MEAN CELL VOLUME 87.8 FL (83-96); MEAN CORPUSCULAR HEMOGLOBIN 28.5 PG (28-34); MEAN CORPUSCULAR HGB CONC 32.4 g/dL (30-36); MEAN PLATELET VOLUME 8.7 FL (6.5-11.5); RED BLOOD COUNT 4.07 X10e (3.90-5.60); RED CELL DISTRIBUTION WIDTH 19.4 % (11.0-15.5)
[2016-09-18 06:36] LABS: BUN/CREATININE RATIO 12.8; CALCIUM SERUM 8.1 mg/dL (8.4-10.2); CREATININE SERUM 2.5 mg/dL (0.6-1.4); GLOM FILT RATE Estimated 22.7 mL/min (>60); POTASSIUM 4.2 mmol/L (3.5-5.1)
[2016-09-19 06:40] LABS: HEMATOCRIT 33.8 % (38.0-50.0); MEAN CELL VOLUME 87.5 FL (83-96); MEAN CORPUSCULAR HEMOGLOBIN 28.5 PG (28-34); MEAN CORPUSCULAR HGB CONC 32.5 g/dL (30-36); MEAN PLATELET VOLUME 9.1 FL (6.5-11.5); RED BLOOD COUNT 3.86 X10e (3.90-5.60); RED CELL DISTRIBUTION WIDTH 19.3 % (11.0-15.5)
[2016-09-19 06:44] LABS: WHITE BLOOD COUNT 11.9 X10e3 (4.0-10.5)
[2016-09-19 06:52] LABS: BUN/CREATININE RATIO 13.47; CALCIUM SERUM 8.1 mg/dL (8.4-10.2); CREATININE SERUM 2.3 mg/dL (0.6-1.4); GLOM FILT RATE Estimated 25.1 mL/min (>60); MAGNESIUM 1.6 mg/dL (1.6-3.0); PHOSPHOROUS 1.7 mg/dL (2.5-4.6); POTASSIUM 3.5 mmol/L (3.5-5.1)
[2016-09-20 08:14] LABS: HEMATOCRIT 34.7 % (38.0-50.0); HEMOGLOBIN 11.3 gm/dL (13.0-16.0); MEAN CORPUSCULAR HEMOGLOBIN 28.5 PG (28-34); MEAN CORPUSCULAR HGB CONC 32.4 g/dL (30-36); MEAN PLATELET VOLUME 9.2 FL (6.5-11.5); RED BLOOD COUNT 3.95 X10e (3.90-5.60)
[2016-09-20 08:45] LABS: BUN/CREATININE RATIO 15.55; CREATININE SERUM 1.8 mg/dL (0.6-1.4); GLOM FILT RATE Estimated 33.8 mL/min (>60); POTASSIUM 3.4 mmol/L (3.5-5.1)
[2016-09-20 09:28] LABS: FERRITIN 161 ng/mL (24-336)
[2016-09-21 07:35] LABS: HEMATOCRIT 36.4 % (38.0-50.0); HEMOGLOBIN 11.9 gm/dL (13.0-16.0); MEAN CELL VOLUME 88.1 FL (83-96); MEAN CORPUSCULAR HEMOGLOBIN 28.7 PG (28-34); MEAN CORPUSCULAR HGB CONC 32.6 g/dL (30-36); MEAN PLATELET VOLUME 9.5 FL (6.5-11.5); RED BLOOD COUNT 4.14 X10e (3.90-5.60); RED CELL DISTRIBUTION WIDTH 19.2 % (11.0-15.5); WHITE BLOOD COUNT 7.8 X10e3 (4.0-10.5)
[2016-09-21 09:07] LABS: BUN/CREATININE RATIO 14.44; CREATININE SERUM 1.8 mg/dL (0.6-1.4); GLOM FILT RATE Estimated 33.8 mL/min (>60); MAGNESIUM 1.9 mg/dL (1.6-3.0); POTASSIUM 4.5 mmol/L (3.5-5.1)
[2016-09-21] MEDS ORDERED: ELIQUIS2.5 MG PO (13:49)
[2016-09-21] MEDS ORDERED: NITROGLYGERIN0.4 MG SL (13:50)
== END 2016-09-21 15:25 | disposition home health service (06) | DRG 637 ==
LOC: CED 12:20 → CEDOF 17:30 → C3A PCU 21:48
PROVIDERS: Emergency Medicine; Family Medicine; Internal Medicine; Internal Medicine Hematology & Oncology
DX: E11.649 Type 2 diabetes mellitus with hypoglycemia without coma (principal); I50.23 Acute on chronic systolic (congestive) heart failure; N18.4 Chronic kidney disease, stage 4 (severe); G92 Toxic encephalopathy; I48.0 Paroxysmal atrial fibrillation; D69.6 Thrombocytopenia, unspecified; D64.9 Anemia, unspecified; I25.5 Ischemic cardiomyopathy; I08.1 Rheumatic disorders of both mitral and tricuspid valves; E11.22 Type 2 diabetes mellitus with diabetic chronic kidney disease; I25.10 Atherosclerotic heart disease of native coronary artery without angina pectoris; I13.0 Hypertensive heart and chronic kidney disease with heart failure and stage 1 through stage 4 chronic kidney disease, or unspecified chronic kidney disease; E87.1 Hypo-osmolality and hyponatremia; Z95.0 Presence of cardiac pacemaker; R29.6 Repeated falls; E03.9 Hypothyroidism, unspecified; Z96.652 Presence of left artificial knee joint; Z95.5 Presence of coronary angioplasty implant and graft; E78.5 Hyperlipidemia, unspecified; Z79.4 Long term (current) use of insulin; N20.0 Calculus of kidney; E87.6 Hypokalemia
CPT/HCPCS: 51701; 71010; 71250; 74176; 80048; 80053; 81003; 82553; 82607; 82728; 82947; 83036; 83540; 83550; 83605; 83735; 83880; 84100; 84132; 84484; 85025; 85027; 85610; 87040; 93005; 94664; 94760; 96361; 96365; 97162; 97166; 97530; 99291; G8978-GP; G8979-GP; G8987-GO; G8988-GO; J0696; J1250; J1815; J2916; J3475

== ENCOUNTER 2016-09-28 10:16 | Emergency (ER) | payer MEDICARE, BC ==
--- NOTE | ~2016-09-28 | CT71 ---
[facility] A Service of [facility] RADIOLOGY TEXT RESULTS PATIENT: MECCA LOYOLA LOCATION: [facility] : 31 UNIT #: [id number] AGE: [address]: Devendra Guthrie MD SEX: M ORDER DR: [id number] [facility] [address] [place], [place] [address] [id number] E MR#: [id number] Acc #: [id number] NAME: MECCA LOYOLA : 1930 SEX: M STUDY DATE/TIME: 09/28/2016 11:15 UNIT: [facility] ROOM: STUDY DESCRIPTION: CT Head Wo Contrast Attending Physician: Devendra Guthrie M.D. Ordering Physician: Devendra Guthrie M.D. Primary Care Physician: Blake Dhillon M.D. MEDICAL IMAGING REPORT This report is preliminary unless electronic signature is present EXAM Head CT no contrast, 09/28/2016 COMPARISON 08/18/2016 PROCEDURE Axial unenhanced head CT. This CT exam was performed with one or more of the following radiation dose reduction techniques: automatic exposure control, adjustment of mA and/or kV according to patient size, and iterative reconstruction. HISTORY Fell and struck head, now with scalp laceration, bruising and swelling. Fall was this morning. FINDINGS There is a rightward displaced nasal fracture including a nasal septal fracture, and there is some fluid in the right maxillary sinus, possibly blood. No other fractures are seen. There is facial/frontal scalp soft tissue swelling to the left of midline, but there is no evidence of acute intracranial hemorrhage or other acute intracranial injury. There is advanced volume loss but no hydrocephalus or extraaxial fluid collection. IMPRESSION 1. Advanced cerebral volume loss but no evidence of intracranial injury. There is no intracranial hemorrhage and no hydrocephalus or extraaxial fluid collection. 2. There is facial/frontal scalp soft tissue swelling and there is a [facility] A Service of [facility] RADIOLOGY TEXT RESULTS PATIENT: MECCA LOYOLA LOCATION: [facility] : 31 UNIT #: [id number] AGE: [address]: Devendra Guthrie MD SEX: M ORDER DR: mildly displaced rightward nasal alar and septal fracture. A tiny amount of fluid in the right maxillary sinus may in fact be a small amount of blood, but no other fractures are seen here. Dictated by... Juan Sharma M.D. THIS IS AN ELECTRONICALLY VERIFIED REPORT Juan Sharma M.D. at 09/29/2016 9:50 AM CHARBEL/hoang TD: 09/28/2016 13:53 JOB #: [id number] MEDICAL IMAGING REPORT Page 1 of 1 COPY
--- NOTE | ~2016-09-28 | CT52 ---
[facility] A Service of [facility] RADIOLOGY TEXT RESULTS PATIENT: MECCA LOYOLA LOCATION: [facility] : 31 UNIT #: [id number] AGE: [address]: Devendra Guthrie MD SEX: M ORDER DR: [id number] [facility] [address] [place], [place] [address] [id number] E MR#: [id number] Acc #: [id number] NAME: MECCA LOYOLA : 1930 SEX: M STUDY DATE/TIME: 09/28/2016 11:26 UNIT: [facility] ROOM: STUDY DESCRIPTION: CT Cervical Spine Wo Cont Attending Physician: Devendra Guthrie M.D. Ordering Physician: Devendra Guthrie M.D. Primary Care Physician: Blake Dhillon M.D. MEDICAL IMAGING REPORT This report is preliminary unless electronic signature is present REVISED REPORT See addendum EXAM CT C-spine without contrast dated 09/28/[address] C-spine without contrast dated 07/26/2016. HISTORY Patient fell while getting out of bed today at 08:00 a.m. Hit head and neck and has a laceration in the left side of the central forehead with bruising and swelling of the left eye. Patient is in a neck brace. FINDINGS CT of the C-spine was obtained without contrast in the axial plane followed by sagittal and coronal reformats. Endplate osteophytes with sclerotic endplate changes and small Schmorl's nodes are noted at C5-6. Associated significant loss of disc height is also seen. There are tiny posterior and slightly more prominent anterior endplate osteophytes at this level. No acute fracture or subluxation is seen. C1-2 and C7-T1 junctions are intact. C2-3: Disc osteophyte complex with rnpatnng-bq-xebudu right and wagg-sa-cxbzvwmc left facet hypertrophic change. No significant canal stenosis or neural foraminal narrowing. C3-4: Disc osteophyte complex with bilateral uncinate spur, worse on the right. Ytlocaln-th-zveech right and uwmw-ae-xvejfjhr left facet hypertrophic changes are noted. There is severe right and inferior left neural foraminal narrowing with patent superior aspect. There is also a [facility] A Service [facility] RADIOLOGY TEXT RESULTS PATIENT: MECCA LOYOLA LOCATION: [facility] #: [id number] : 31 UNIT #: [id number] AGE: [address]: Devendra Guthrie MD SEX: M ORDER DR: small central protrusion. C4-5: Disc osteophyte complex with severe left and moderate right facet hypertrophic change. Very severe left and severe right neural foraminal narrowing are noted with mpcuf-hw-zlml central protrusion and borderline size to mild canal stenosis. C5-6: Disc osteophyte complex with bilateral uncinate spurs. Severe right and eindubqo-ds-klioqi left facet hypertrophic changes are noted with very severe left and severe right neural foraminal narrowing. Borderline size to mild canal stenosis is seen. C6-7: Disc osteophyte complex with left uncinate spur, mild right and bozh-of-enjqocjv left facet hypertrophic change. Difqsqbb-xw-hekopz left neural foraminal narrowing is seen without canal stenosis. C7-T1: Disc osteophyte complex but otherwise unremarkable. IMPRESSION 1. Degenerative changes are noted at multiple levels of the cervical spine as described above. 2. No acute displaced fracture or subluxation. Dictated by... Fred Duong M.D. THIS IS AN ELECTRONICALLY VERIFIED REPORT Fred Duong M.D. at 09/29/2016 3:21 PM CPR/aa TD: 09/28/2016 14:10 JOB #: [id number] EXAM CT C-spine without contrast, dated 09/28/2016. ADDENDUM CT of the cervical spine was obtained without contrast in the axial plane followed by sagittal and coronal reformats. CT dose reduction techniques were used to produce appropriate images as per the protocol and ACR recommendations. The exam was performed with one or more of the following radiation dose reduction techniques: Automatic exposure control, adjustment of mA and/or kV according to patient size, and iterative reconstruction. [facility] A Service [facility] RADIOLOGY TEXT RESULTS PATIENT: MECCA LOYOLA LOCATION: [facility] : 31 UNIT #: [id number] AGE: [address]: Devendra Guthrie MD SEX: M ORDER DR: Dictated by... Fred Duong M.D. THIS IS AN ELECTRONICALLY VERIFIED REPORT Fred Duong M.D. at 01/12/2017 4:14 PM CPR/jt TD: 01/09/2017 22:02 JOB #: [id number] MEDICAL IMAGING REPORT Page 1 of 1 COPY
[~2016-09-28 10:16] MED LIST changes: +FLONASE 0.05% N16 G1; +NITROGLYGERIN0.4 MG SL
[2016-09-28 10:53] LABS: BASOPHIL# 0.1 X10e3 (0-0.3); BASOPHIL% 0.8 % (0-2.5); DIFF IND NO; EOSINOPHIL% 0.4 % (0.0-7.0); HEMATOCRIT 32.8 % (38.0-50.0); HEMOGLOBIN 10.7 gm/dL (13.0-16.0); LYMPHOCYTE# 0.6 X10e3 (1.0-3.5); LYMPHOCYTE% 7.7 % (17.0-45.0); MEAN CELL VOLUME 88.8 FL (83-96); MEAN CORPUSCULAR HGB CONC 32.6 g/dL (30-36); MONOCYTE# 0.5 X10e3 (0-1.0); MONOCYTE% 7.4 % (3.0-12.0); NEUTROPHIL# 6.2 X10e3 (1.5-7.1); NEUTROPHIL% 83.7 % (40-75); PLATELET COUNT 148 X10e3 (140-420); RED BLOOD COUNT 3.69 X10e (3.90-5.60); RED CELL DISTRIBUTION WIDTH 18.5 % (11.0-15.5); WHITE BLOOD COUNT 7.4 X10e3 (4.0-10.5)
[2016-09-28 11:06] LABS: INR 1.1; PARTIAL THROMBOPLASTIN TIME 26.6 SECONDS (23.5-31.3); PROTHROMBIN TIME (PATIENT) 11.4 SECONDS (9.6-11.5)
== END 2016-09-28 14:00 | disposition home or self-care (01) ==
LOC: CED 10:16
PROVIDERS: Emergency Medicine
DX: S01.81XA Laceration without foreign body of other part of head, initial encounter (principal); S81.012A Laceration without foreign body, left knee, initial encounter; S61.411A Laceration without foreign body of right hand, initial encounter; I10 Essential (primary) hypertension; E11.9 Type 2 diabetes mellitus without complications; Z79.899 Other long term (current) drug therapy; Z79.82 Long term (current) use of aspirin; Z79.01 Long term (current) use of anticoagulants; W01.0XXA Fall on same level from slipping, tripping and stumbling without subsequent striking against object, initial encounter; Y92.009 Unspecified place in unspecified non-institutional (private) residence as the place of occurrence of the external cause
CPT/HCPCS: 12002; 70450; 72125; 85025; 85610; 85730; 99284

== ENCOUNTER 2016-12-17 17:02 | Inpatient (IN) | payer MEDICARE, BC ==
[~2016-12-17] VITALS: Ht 175.3 cm; Wt 83.9 kg
--- NOTE | ~2016-12-17 | CR72 ---
[facility] A Service of [facility] RADIOLOGY TEXT RESULTS PATIENT: MECCA LOYOLA LOCATION: [facility] 577-01 : 31 UNIT #: [id number] AGE: [address]: Tripp Rea MD SEX: M ORDER DR: [id number] [facility] [address] [place], [place] [address] [id number] I MR#: [id number] Acc #: [id number] NAME: MECCA LOYOLA : 1930 SEX: M STUDY DATE/TIME: 12/17/2016 18:01 UNIT: [facility] ROOM: [facility] STUDY DESCRIPTION: CR Chest Single View Portable Attending Physician: Tripp Rea M.D. Ordering Physician: Suzette Gan M.D. Primary Care Physician: Blake Dhillon M.D. MEDICAL IMAGING REPORT This report is preliminary unless electronic signature is present EXAM Portable chest HISTORY Chest pain and tightness and shortness of air for 2 days. FINDINGS Moderate interstitial infiltrates in both lung bases, greater on the right and small right pleural effusion are new compared to 09/17/2016. Cardiac and mediastinal contours are stable. Upper lungs are clear. Dictated by... Tirso Roca M.D. THIS IS AN ELECTRONICALLY VERIFIED REPORT Tirso Roca M.D. at 12/18/2016 11:03 PM DFL/alr TD: 12/18/2016 04:43 JOB #: [id number] MEDICAL IMAGING REPORT Page 1 of 1 COPY
--- NOTE | ~2016-12-17 | EKG ---
PATIENT: MECCA LOYOLA UNIT #: [id number] Ventricular Rate: 63 BPM Atrial Rate: 61 BPM P-R Interval: 186 ms QRS Duration: 162 ms Q-T Interval: 588 ms QTC Calculation(Bezet): 601 ms Calculated R [place]: -62 degrees Calculated T [place]: 97 degrees Diagnosis Line: AV dual-paced rhythm with frequent Diagnosis Line: ventricular-paced complexes and with occasional Diagnosis Line: Premature ventricular complexes Diagnosis Line: Abnormal ECG Diagnosis Line: When compared with ECG of 17-SEP-2016 11:57, Diagnosis Line: Electronic ventricular pacemaker has replaced Diagnosis Line: Junctional rhythm Diagnosis Line: Confirmed by CRUZ TIRADO MD ([id number]) on 12/18/2016 Diagnosis Line: 7:56:14 PM INTERPRETING MD: CANDIDA BARRIOS
--- NOTE | ~2016-12-17 | DS ---
Unit #: [id number] #: [id number] Patient: MECCA LOYOLA [id number] [address] [address] [id number] I MR#: [id number] NAME: MECCA LOYOLA ROOM: 577 Age: 86 Sex: M Admission Date: 12/19/2016 : 1930 Discharge Date: 12/22/2016 Attending Physician: Felipe Jaeger M.D. Primary Care Physician: Blake Dhillon M.D. DISCHARGE SUMMARY DISCHARGE DIAGNOSES 1. Jdlti-kj-swfwexu systolic heart failure with reduced ejection fraction of 30% to 35%, compensated. 2. Ischemic cardiomyopathy. 3. Chronic kidney disease stage 4. 4. History of paroxysmal atrial fibrillation. 5. Coronary artery disease, status post percutaneous coronary intervention and stents to the left anterior descending and right coronary artery in the past. 6. Sick sinus syndrome, status post permanent pacemaker. 7. Chronic anemia of chronic kidney disease. 8. Hypertension. 9. Hyperlipidemia. DISCHARGE MEDICATIONS 1. Bimatoprost one drop each eye q.h.s. 2. Famotidine 10 mg b.i.d. 3. Aspirin 81 mg daily. 4. Penicillin 500 mg t.i.d. 5. Spironolactone 50 mg daily. 6. Levothyroxine 112 mcg daily. 7. Imdur 30 mg daily. 8. Nitrostat 0.4 mg sublingual q.5 minutes x3 p.r.n. chest pain 9. Amiodarone 500 mg daily. 10. Fluticasone propionate one spray each nostril b.i.d. 11. Apixaban 2.5 mg b.i.d. 12. Carvedilol 3.125 mg b.i.d. 13. Torsemide 60 mg b.i.d. 14. Zocor 40 mg q.h.s. 15. Ferrous gluconate 325 mg daily. HOSPITAL COURSE This is an 86-year-old male who presented to the emergency room with a complaint of shortness of breath, abdominal and chest pain. He was ruled out for an acute myocardial infarction with negative cardiac enzymes and troponin. He was noted to be in fxfgw-dy-uhblmtz systolic heart failure where his BNP was elevated at 1911; chest x-ray consistent with congestive heart failure. The patient was diuresed with IV diuretics and started on a higher dose of Aldactone. He had a short course of IV dobutamine. Carvedilol was withheld while the patient was on dobutamine. He was continued on fluid restriction. Dr. Jeffrey Latham was asked to see the patient because of known chronic kidney disease where he remained around his baseline of 2.3. Dr. Latham increased his Bumex to 2 mg IV q.6 h. for one day and then he was changed to Demadex 60 mg b.i.d. His heart failure Unit #: [id number] #: [id number] Patient: MECCA LOYOLA improved. He is known to have chronic anemia. Hemoglobin was as low as 8.1. He received Venofer 200 mg IV for three days. He also received a onetime subcu dose of Aranesp. His hemoglobin improved to 8.5. The patient symptomatically improved. He wanted to go home. He had no further complaints of chest pain. He was euvolemic on examination. CHF education was given. He was advised to undergo cardiac rehab, which was consulted. His renal function remained stable. He is stable for discharge today. PHYSICAL EXAMINATION VITAL SIGNS: Blood pressure 125/71, heart rate 77. CHEST: Good breath sounds both lungs. ABDOMEN: Soft, nontender, with bowel sounds present. EXTREMITIES: With decrease in his leg edema. HEART: S1, S2, regular rate and rhythm. DIAGNOSTIC STUDIES LABORATORY: Glucose 184, BUN 43, creatinine 2.3, sodium 136, potassium 4.1, cholesterol 118, triglycerides 166, LDL 68, HDL 17, TSH 4.49, white count 7.0, hemoglobin 8.5, hematocrit 27.5, platelet count is 165. CARDIOVASCULAR: EKG shows ventricularly paced rhythm. CONSULTATIONS Dr. Jeffrey Latham, nephrology. DISCHARGE INSTRUCTIONS 1. The patient will be discharged home today. 2. Follow up with Dr. Jaeger on February 03 at 2:00 p.m. 3. Cardiac rehab saw the patient prior to discharge. The patient was not willing to consent to rehab at this time. They are to follow up with the patient in two weeks. 4. The patient will be discharged home with VNA for heart failure. 5. Demadex has been increased to 60 mg p.o. b.i.d. with prescription provided. 6. The patient is to take szak-fko-qifqfjv ferrous gluconate for anemia. 7. No ZHANG inhibitor or ARB for cardiomyopathy because of chronic kidney disease stage 4. Dictated by... Kev Morrissey A.P.R.N. for Haritha Alatorre M.D. AEP/cf TD: 12/24/2016 17:13 JOB #: [id number] Unit #: [id number] #: [id number] Patient: MECCA LOYOLA DISCHARGE SUMMARY Page 1 of 1 X Kev Morrissey APRN X DISCHARGE SUMMARY
--- NOTE | ~2016-12-17 | CO ---
Unit #: [id number] #: [id number] Patient: MECCA LOYOLA [id number] [address] [place], [place] [address] [id number] I MR#: [id number] NAME: MECCA LOYOLA ROOM: 577 Age: 86 Sex: M Admission Date: 12/17/2016 : 1930 Attending Physician: Felipe Jaeger M.D. Primary Care Physician: Blake Dhillon M.D. Consultation Date: 12/18/2016 CONSULTATION REPORT REASON FOR CONSULTATION Renal insufficiency. Thank you very much for asking me to see this patient in consultation. HISTORY OF PRESENT ILLNESS Mr. Loyola is an 86-year-old male with history of chronic kidney disease, stage 4, his creatinine fluctuates really in high 1s to low 2s depending on his volume status, who presented to the hospital here with an increased creatinine of 2.6 with shortness of breath, increased abdominal swelling. The patient was noted to have again increased creatinine of 2.6. He was started on IV Bumex as well as dobutamine and we were asked to see the patient. The patient states he is still short of breath but not as bad. He still has some epigastric discomfort and some chest/lower or upper abdomen discomfort. He denies any fevers or chills, cough or hemoptysis. He denies any urinary symptoms. He says he has had intermittent lower extremity swelling. He states he has been taking his medications. The patient is followed by Dr. Carlin in our group. He has a fistula in his right upper arm that actually had revision on it about a week ago at [facility] and still has scooter in it for now. PAST MEDICAL HISTORY History of chronic kidney disease, stage 4, status post revision of AV fistula; history of congestive heart failure, decreased EF of 30% with atherosclerotic coronary artery disease; history of sick sinus syndrome, status post pacemaker, he is status post stent placement with cardiac; history of atrial fib; history of hypothyroidism; history of diabetes mellitus; history of hyponatremia in the past; history of hypertension, history of hyperlipidemia. ALLERGIES No known drug allergies. FAMILY HISTORY Negative for kidney disease. SOCIAL HISTORY He is a previous smoker, none now. No alcohol. He is . MEDICATIONS His medicines currently include dobutamine, Lipitor, Bumex 2 mg IV q.12h. At home, he was on torsemide 40 mg b.i.d. He is on Eliquis, Imdur, Pepcid, Synthroid, penicillin, amiodarone 200 mg a day, and insulin sliding scale. Unit #: [id number] #: [id number] Patient: MECCA LOYOLA REVIEW OF SYSTEMS As mentioned in the HPI, otherwise negative. PHYSICAL EXAMINATION GENERAL: He is alert and oriented. VITAL SIGNS: Temperature is 98.0, pulse 60 to 72, blood pressure 110 to 137 over 40s to 70s. HEENT: He is normocephalic and atraumatic. Pupils are equal, round, and reactive to light. Extraocular muscles are intact. Hearing appears to be normal. Mouth is clear. No erythema. No exudate. NECK: Supple. No adenopathy. CARDIAC: He is without a rub. No S3 or S4. LUNGS: Have decreased breath sounds at bases. Upper lungs are clear. ABDOMEN: Bowel sounds positive. Nontender. Soft. EXTREMITIES: He does have some mild lower extremity swelling. His pulses are intact in upper and lower extremities. JOINTS: No joint pain or joint swelling. SKIN: No acute rashes. NEURO: Appears to be intact motor and sensory grossly. : Deferred. DIAGNOSTIC STUDIES LABORATORY RESULTS: Showed a sodium of 134, potassium 3.4 today, chloride is 101, bicarb is 26, BUN and creatinine 47 and 2.6, glucose 311, calcium is 8.8, magnesium is 2.4. BNP is 1911. TSH 4.49. His hemoglobin is 9, white count 6300, and platelets 193,000. UA shows specific gravity of 1.013, 500 glucose, negative protein, 0 to 2 rbc's, 0 to 2 wbc's. Blood cultures negative for 24 hours. ABG showed a pH of 7.456, pCO2 of 35, PO2 of 69 on 2 L. IMAGING STUDIES: Chest x-ray shows some moderate interstitial infiltrates, right greater than left and small pleural effusion on the right. ASSESSMENT AND PLAN 1. Chronic kidney disease, stage 4. The patient does not appear to need dialysis at this time that was on the questions that I was asked to evaluate. I think we have not maximize his diuretic at this time either. I agree with IV Bumex as well as dobutamine. We will check a bladder scan for postvoid residual to make sure that he did not have any urinary retention. We will continue to follow his output as well as his daily weights. For now, hold off on ZHANG inhibitor, angiotensin receptor disha, as well as contrast dye and other nephrotoxins. 2. Congestive heart failure, decreased ejection fraction per Cardiology. Again, we will need higher dose diuretic upon discharge. 3. Hypokalemia. Potassium is low. It is actually lower than even looks with high glucose with cellular shifts. We will add Aldactone for his heart failure as well as his hypokalemia. Given extra dose of potassium later today. Recheck full set of electrolytes in the morning. 4. Anemia. The patient's hemoglobin is 9.0. We will check iron stores. Certainly, he could be anemic related from surgery that he had several weeks ago with fistula as well as his chronic kidney disease and again we will check iron stores to see if he needs to be placed on some intermittent IV iron. 5. Diabetes mellitus with poor control on insulin sliding scale right now per primary. 6. Status post right arteriovenous fistula revision. According to the Unit #: [id number] #: [id number] Patient: MECCA LOYOLA patient and his , they want to leave the scooter in a few more days and they have a followup in a week or so with a Vascular Surgeon. 7. Hyponatremia. The patient most likely has hypervolemic hyponatremia. He is on p.o. fluid restriction. I agree with diuretics. Dictated by.Ignacio Latham M.D. JUAN/tessa TD: 12/19/2016 00:58 JOB #: [id number] CONSULTATION REPORT Page 1 of 1 X Charu Latham MD X CONSULTATION REPORT
--- NOTE | ~2016-12-17 | EKG ---
PATIENT: MECCA LOYOLA UNIT #: [id number] Ventricular Rate: 70 BPM Atrial Rate: 70 BPM P-R Interval: 80 ms QRS Duration: 198 ms Q-T Interval: 562 ms QTC Calculation(Bezet): 606 ms P [place]: 94 degrees Calculated R [place]: -63 degrees Calculated T [place]: 98 degrees Diagnosis Line: Ventricular-paced rhythm Diagnosis Line: Confirmed by SHAYNA JAEGER MD ([id number]) on Diagnosis Line: 12/19/2016 7:31:42 AM INTERPRETING MD: MIL BARRIOS
--- NOTE | ~2016-12-17 | HP ---
Unit #: [id number] #: [id number] Patient: MECCA LOYOLA [id number] [address] [place], [place] [address] [id number] MR#: [id number] NAME: MECCA LOYOLA ROOM: 577 Age: 86 Sex: M Admission Date: 12/17/2016 : 1930 Attending Physician: Tripp Rea M.D. Primary Care Physician: Blake Dhillon M.D. HISTORY AND PHYSICAL HISTORY OF PRESENT ILLNESS This is an 86-year-old white male who is known to Dr. Jaeger who has a history of myocardial infarction in 2000 when he underwent angioplasty with stent placement to the LAD. Afterwards, the patient suffered a cardiac arrest. In 2009, he had PCI and stent to the right coronary artery and circumflex artery. He is known to have sick sinus syndrome and has undergone permanent pacemaker implantation. He has paroxysmal atrial fibrillation that has been managed with beta disha and amiodarone. He is on chronic anticoagulation with Eliquis. The patient is admitted with the complaint of shortness of breath and abdominal and chest pain for the past three to four days. He has shortness of breath mostly on exertion with occasional productive cough with white sputum. No fever or chills. He denies paroxysmal nocturnal dyspnea and orthopnea. He complains of an increase in abdominal girth, leg edema, and five pound weight gain. He has known chronic kidney disease stage [address] Mike and had AV shunt placement done two weeks ago. He has not started on dialysis. Creatinine on admission was 2.6 which appears to be his baseline. His chest tightness is nonradiating to his neck, arm, or jaw. It mostly occurs with exertion and is accompanied by abdominal discomfort. He denies palpitations or dizziness. He came to the emergency room for evaluation where he was found to have an elevated BNP of 1911 with chest x-ray consistent with congestive heart failure. Troponin is negative. He has ischemic cardiomyopathy with a previous ejection fraction of 30% to 35% in 2014. However, in June 2016, he had improvement of his left ventricular systolic function with ejection fraction of 55%. He has severe mitral regurgitation and moderate to severe tricuspid regurgitation. PAST MEDICAL HISTORY 1. A 2D echocardiogram on June 24, 2016, showed an ejection fraction of 55% while on IV dobutamine drip with moderate to severely dilated left atrium, moderately enlarged right atrium, right ventricular systolic pressure of 79 mmHg consistent with severe pulmonary hypertension, mild aortic regurgitation with severe mitral regurgitation, and moderate to severe tricuspid regurgitation. 2. Myocardial infarction in 2000 with subsequent cardiac arrest, status post PCI and stent to the LAD. 3. Percutaneous coronary intervention and stent to the right coronary artery and the circumflex artery in 2009. 4. [employer] permanent pacemaker per (1) in 2011 for sick sinus syndrome. 5. Hypertension. Unit #: [id number] #: [id number] Patient: MECCA LOYOLA 6. Hyperlipidemia. 7. Amiodarone-induce hypothyroidism. 8. Chronic systolic heart failure. 9. Ischemic cardiomyopathy with an ejection fraction of 30% to 35%. 10. Paroxysmal atrial fibrillation on chronic anticoagulation with Eliquis. 11. Gastrointestinal bleed. 12. Chronic kidney disease stage 4. 13. Chronic anemia of chronic kidney disease. 14. Nonsmoker. PAST SURGICAL HISTORY 1. Recent right AV shunt placement. 2. Permanent pacemaker. 3. Left rotator cuff repair. 4. Bilateral total knee replacement. 5. Basal cell carcinoma removal. SOCIAL HISTORY The patient is . He has no history of illicit drug or alcohol use. He ambulates with a walker. FAMILY HISTORY Coronary artery disease. ALLERGIES No known drug allergies. HOME MEDICATIONS 1. Famotidine 20 mg b.i.d. 2. Aspirin 81 mg daily. 3. Levothyroxine 112 mcg daily. 4. Imdur 30 mg daily. 5. Flonase 1 spray each nostril b.i.d. p.r.n. 6. Penicillin 500 mg t.i.d. 7. Nitrostat 0.4 mg q.5 minutes x3 p.r.n. 8. Eliquis 2.5 mg b.i.d. 9. Amiodarone 200 mg daily. 10. Carvedilol 3.125 mg b.i.d. 11. Torsemide 20 mg q.i.d. 12. Simvastatin 40 mg at bedtime. 13. Bimatoprost 1 drop O.U. at bedtime. REVIEW OF SYSTEMS CONSTITUTIONAL: Positive for weakness and fatigue. Has had a five pound weight gain over the past one week. HEENT: No headache, hearing or vision changes, or difficulty with swallowing. No dizziness. CARDIOVASCULAR: Has chest discomfort as described in the History of Present Illness. Denies palpitations. No paroxysmal nocturnal dyspnea or orthopnea. No syncope or near syncope. RESPIRATORY: Positive for dyspnea at rest that is worse on exertion. Has occasional productive cough with yellow sputum. No hemoptysis. GASTROINTESTINAL: Has abdominal tightness and increased abdominal girth. No constipation, melena, hematochezia, or hematemesis. No nausea or vomiting. EXTREMITIES: Positive for lower extremity edema. Unit #: [id number] #: [id number] Patient: MECCA LOYOLA PHYSICAL EXAMINATION VITAL SIGNS: Blood pressure 120/56, heart rate 63, and temperature 97.5. BMI is 28. GENERAL: This is a very pleasant 86-year-old elderly white male who is in no acute respiratory distress. NEUROLOGICAL: He is awake, alert, and oriented. There are no focal weaknesses. NECK: Trachea is midline. No thyromegaly or lymphadenopathy. No jugular venous distention. HEART: S1 and S2 heart sounds are normal with a grade 3/6 systolic murmur heard best at the apex. No rubs or clicks. Regular rate and rhythm. LUNGS: With crackles in both lung bases. ABDOMEN: Soft and nontender with bowel sounds present. Mild hepatomegaly. EXTREMITIES: With 1+ pitting edema. SKIN: Pale and dry. There are multiple ecchymotic areas on his bilateral upper extremities, back, and posterior neck. Right forearm with scooter and Steri-Strips with intact wound. DIAGNOSTIC STUDIES LABORATORY: Glucose 311, BUN 47, creatinine 2.6, sodium 137, potassium 3.4, and magnesium 2.4. BNP 1911. Troponin less than 0.05 and 0.04. Lactic acid 1.8. Cholesterol 118, triglycerides 166, LDL 68, and HDL 17. TSH 4.49. White count 6.3, hemoglobin 9, hematocrit 28.5, and platelet count is 193,000. IMAGING: Chest x-ray noted for moderate infiltrates in both lung bases, right greater than the left, and small right pleural effusion. Consistent with congestive heart failure. CARDIOLOGY: EKG shows ventricular-paced rhythm. IMPRESSION 1. Acute on chronic systolic heart failure with reduced ejection fraction of 30% to 35%. 2. Chronic kidney disease stage 4. 3. Hypertensive heart disease. 4. Ischemic cardiomyopathy. 5. Status post old anterior myocardial infarction, status post percutaneous coronary intervention and stent to the left anterior descending. 6. Percutaneous coronary intervention and stent to the left circumflex and right coronary artery in 2009. 7. Permanent pacemaker. 8. Paroxysmal atrial fibrillation, on anticoagulation with Eliquis. 9. Hypertension. 10. Hyperlipidemia. 11. Diabetes mellitus type 2. PLAN 1. The patient demonstrates fluid overload that is cardiorenal in origin. Will start on a short course of IV dobutamine. 2. Continue IV diuretics. 3. Will ask Nephrology to see the patient to determine if he needs to start hemodialysis. 4. Will hold carvedilol while on dobutamine. Restart once dobutamine has been discontinued. 5. Place on fluid and sodium restriction. 6. Strict I/Os with daily weights. Unit #: [id number] #: [id number] Patient: MECCA LOYOLA 1. Dictated by Kev Morrissey A.P.R.N. for Leigh Ga/lor TD: 12/18/2016 15:49 JOB #: [id number] HISTORY AND PHYSICAL Page 1 of 1 X Kev Morrissey APRN X HISTORY AND PHYSICAL
[2016-12-17] MEDS ORDERED: AMIODARONE HCL200 MG PO (17:13)
[2016-12-17] MEDS ORDERED: COREG3.125 MG PO (17:13)
[2016-12-17] MEDS ORDERED: ZOCOR PO (17:14)
[2016-12-17] MEDS ORDERED: DEMADEX PO (17:14)
[2016-12-17] MEDS ORDERED: ACID CONTROLLER20 MG PO (17:15)
[2016-12-17] MEDS ORDERED: ASPIRIN81 M2 PO (17:15)
[2016-12-17] MEDS ORDERED: BIMATOPROST2.5 ML OU (17:15)
[2016-12-17] MEDS ORDERED: SYNTHROID112 MCG PO (17:16)
[2016-12-17] MEDS ORDERED: IMDUR PO (17:16)
[2016-12-17] MEDS ORDERED: FLONASE ALLERG9.9 ML (17:17)
[2016-12-17] MEDS ORDERED: PENICILLIN PO (17:17)
[2016-12-17] MEDS ORDERED: FLOVENT HFA10.6 GM INH (17:17)
[2016-12-17] MEDS ORDERED: NITROSTAT0.4 MG PO (17:18)
[2016-12-17 17:50] LABS: BASOPHIL# 0.1 X10e3 (0-0.3); BASOPHIL% 1.1 % (0-2.5); EOSINOPHIL# 0.1 X10e3 (0-0.7); EOSINOPHIL% 1.6 % (0.0-7.0); HEMATOCRIT 28.5 % (38.0-50.0); LYMPHOCYTE# 0.9 X10e3 (1.0-3.5); LYMPHOCYTE% 14.5 % (17.0-45.0); MEAN CELL VOLUME 83.4 FL (83-96); MEAN CORPUSCULAR HEMOGLOBIN 26.2 PG (28-34); MEAN CORPUSCULAR HGB CONC 31.4 g/dL (30-36); MEAN PLATELET VOLUME 9.2 FL (6.5-11.5); MONOCYTE# 0.6 X10e3 (0-1.0); MONOCYTE% 9.5 % (3.0-12.0); NEUTROPHIL# 4.6 X10e3 (1.5-7.1); NEUTROPHIL% 73.3 % (40-75); PLATELET COUNT 193 X10e3 (140-420); RED BLOOD COUNT 3.42 X10e (3.90-5.60); RED CELL DISTRIBUTION WIDTH 16.4 % (11.0-15.5); WHITE BLOOD COUNT 6.3 X10e3 (4.0-10.5)
[2016-12-17 17:51] LABS: ARTERIAL BLD GAS O2 SATURATION 91.6 % (90.0-100.0); ARTERIAL BLOOD GAS ALLEN TEST NORMAL; ARTERIAL BLOOD GAS ART SITE LEFT RADIAL; ARTERIAL BLOOD GAS CARBOXY HB 0.6 %sat (0.0-9.0); ARTERIAL BLOOD GAS DELIVERY NASAL CANNULA; ARTERIAL BLOOD GAS HCO3 24.6 mmol/L; ARTERIAL BLOOD GAS MET HB 0.7 %sat (0.0-2.0); ARTERIAL BLOOD GAS PCO2 34.9 mmHg (35.0-45.0); ARTERIAL BLOOD GAS PO2 69.3 mmHg (80.0-100); ARTERIAL BLOOD GAS pH 7.456 (7.350-7.450); ARTERIAL DRAW? YES
[2016-12-17 17:55] LABS: DIFF IND NO
[2016-12-17 18:00] LABS: POC - CKMB 1.1 ng/mL (0.0-7.9); POC - TROPONIN <0.05 ng/mL (<=0.05)
[2016-12-17 18:02] LABS: INR 1.2; PARTIAL THROMBOPLASTIN TIME 28.8 SECONDS (23.5-31.3); PROTHROMBIN TIME (PATIENT) 13.5 SECONDS (10.0-11.7)
[2016-12-17 18:11] LABS: ALBUMIN SERUM 3.6 g/dL (3.5-5.0); BILIRUBIN, DIRECT 0.3 mg/dL (0.0-0.2); BILIRUBIN,INDIRECT 1.3 mg/dL (0.0-0.9); BILIRUBIN,TOTAL 1.6 mg/dL (0.2-2.0); BUN/CREATININE RATIO 19.61; CALCIUM SERUM 8.8 mg/dL (8.4-10.2); CREATININE SERUM 2.6 mg/dL (0.6-1.4); GLOM FILT RATE Estimated 21.5 mL/min (>60); MAGNESIUM 2.4 mg/dL (1.6-3.0); POTASSIUM 3.4 mmol/L (3.5-5.1); PROTEIN TOTAL SERUM 7.4 g/dL (6.0-8.3)
[2016-12-17 18:13] LABS: URINE SOURCE CLEAN CATCH
[2016-12-17 18:18] LABS: URINE APPEARANCE CLEAR; URINE BILIRUBIN NEG (NEG); URINE BLOOD NEG (NEG); URINE COLOR YELLOW; URINE GLUCOSE 500 MG/DL (NEG); URINE KETONE NEG (NEG); URINE LEUKOCYTE ESTERASE NEG (NEG); URINE NITRATE NEG (NEG); URINE PROTEIN NEG (NEG); URINE SPECIFIC GRAVITY 1.015 (1.003-1.035)
[2016-12-17 18:34] LABS: CULTURE INDICATED? NO
[2016-12-17 19:42] LABS: POC - CKMB <1.0 ng/mL (0.0-7.9); POC - TROPONIN <0.05 ng/mL (<=0.05)
[2016-12-18] MEDS ORDERED: ELIQUIS2.5 MG PO (00:45)
[2016-12-18 07:49] LABS: BUN/CREATININE RATIO 18.07; CALCIUM SERUM 8.8 mg/dL (8.4-10.2); CREATININE SERUM 2.6 mg/dL (0.6-1.4); GLOM FILT RATE Estimated 21.5 mL/min (>60); MAGNESIUM 2.4 mg/dL (1.6-3.0); POTASSIUM 3.4 mmol/L (3.5-5.1)
[2016-12-18 10:45] LABS: URINE APPEARANCE CLEAR; URINE BILIRUBIN NEG (NEG); URINE BLOOD 1+ (NEG); URINE COLOR YELLOW; URINE GLUCOSE 500 MG/DL (NEG); URINE KETONE NEG (NEG); URINE LEUKOCYTE ESTERASE NEG (NEG); URINE NITRATE NEG (NEG); URINE PROTEIN NEG (NEG); URINE SPECIFIC GRAVITY 1.013 (1.003-1.035)
[2016-12-18 10:48] LABS: U HYALINE CASTS AUWI 0-2 /[LPF]; URBCS1 AUWI 0-2 /[HPF] (0-2); URINE BACTERIA AUWI NEG (NEGATIVE); URINE SQUAMOUS EPITHELIAL CELL NONE SEEN /[HPF]; UWBCS1 AUWI 0-2 (0-5)
[2016-12-18 10:49] LABS: CULTURE INDICATED? NO
[2016-12-19 05:23] LABS: HEMATOCRIT 26.2 % (38.0-50.0); HEMOGLOBIN 8.2 gm/dL (13.0-16.0); MEAN CELL VOLUME 82.6 FL (83-96); MEAN CORPUSCULAR HGB CONC 31.4 g/dL (30-36); MEAN PLATELET VOLUME 9.3 FL (6.5-11.5); RED BLOOD COUNT 3.17 X10e (3.90-5.60); RED CELL DISTRIBUTION WIDTH 16.4 % (11.0-15.5)
[2016-12-19 05:25] LABS: WHITE BLOOD COUNT 9.7 X10e3 (4.0-10.5)
[2016-12-19 06:33] LABS: ALBUMIN SERUM 2.9 g/dL (3.5-5.0); BILIRUBIN,TOTAL 0.6 mg/dL (0.2-2.0); BUN/CREATININE RATIO 21.42; CALCIUM SERUM 8.4 mg/dL (8.4-10.2); CREATININE SERUM 2.1 mg/dL (0.6-1.4); GLOM FILT RATE Estimated 27.9 mL/min (>60); MAGNESIUM 2.2 mg/dL (1.6-3.0); PHOSPHOROUS 3.3 mg/dL (2.5-4.6); POTASSIUM 3.4 mmol/L (3.5-5.1)
[2016-12-20 05:26] LABS: HEMATOCRIT 25.9 % (38.0-50.0); HEMOGLOBIN 8.1 gm/dL (13.0-16.0); MEAN CELL VOLUME 82.1 FL (83-96); MEAN CORPUSCULAR HEMOGLOBIN 25.7 PG (28-34); MEAN CORPUSCULAR HGB CONC 31.3 g/dL (30-36); RED BLOOD COUNT 3.15 X10e (3.90-5.60); RED CELL DISTRIBUTION WIDTH 16.6 % (11.0-15.5); WHITE BLOOD COUNT 7.9 X10e3 (4.0-10.5)
[2016-12-20 07:25] LABS: BUN/CREATININE RATIO 19.54; CALCIUM SERUM 8.7 mg/dL (8.4-10.2); CREATININE SERUM 2.2 mg/dL (0.6-1.4); GLOM FILT RATE Estimated 26.3 mL/min (>60); MAGNESIUM 2.3 mg/dL (1.6-3.0); PHOSPHOROUS 2.8 mg/dL (2.5-4.6); POTASSIUM 3.8 mmol/L (3.5-5.1)
[2016-12-21 06:55] LABS: BASOPHIL% 0.4 % (0-2.5); EOSINOPHIL# 0.5 X10e3 (0-0.7); EOSINOPHIL% 5.9 % (0.0-7.0); HEMATOCRIT 27.4 % (38.0-50.0); HEMOGLOBIN 8.5 gm/dL (13.0-16.0); LYMPHOCYTE# 0.7 X10e3 (1.0-3.5); LYMPHOCYTE% 8.4 % (17.0-45.0); MEAN CELL VOLUME 82.8 FL (83-96); MEAN CORPUSCULAR HEMOGLOBIN 25.6 PG (28-34); MEAN PLATELET VOLUME 9.2 FL (6.5-11.5); MONOCYTE# 0.8 X10e3 (0-1.0); NEUTROPHIL# 6.6 X10e3 (1.5-7.1); NEUTROPHIL% 76.3 % (40-75); PLATELET COUNT 159 X10e3 (140-420); RED BLOOD COUNT 3.31 X10e (3.90-5.60); RED CELL DISTRIBUTION WIDTH 16.4 % (11.0-15.5); WHITE BLOOD COUNT 8.6 X10e3 (4.0-10.5)
[2016-12-21 06:59] LABS: DIFF IND NO
[2016-12-21 08:35] LABS: BUN/CREATININE RATIO 17.61; CREATININE SERUM 2.1 mg/dL (0.6-1.4); GLOM FILT RATE Estimated 27.9 mL/min (>60); POTASSIUM 4.1 mmol/L (3.5-5.1)
[2016-12-22 06:07] LABS: HEMATOCRIT 27.5 % (38.0-50.0); HEMOGLOBIN 8.5 gm/dL (13.0-16.0); MEAN CELL VOLUME 82.4 FL (83-96); MEAN CORPUSCULAR HEMOGLOBIN 25.6 PG (28-34); MEAN CORPUSCULAR HGB CONC 31.1 g/dL (30-36); MEAN PLATELET VOLUME 8.9 FL (6.5-11.5); RED BLOOD COUNT 3.34 X10e (3.90-5.60); RED CELL DISTRIBUTION WIDTH 16.9 % (11.0-15.5)
[2016-12-22 06:39] LABS: BUN/CREATININE RATIO 18.69; CALCIUM SERUM 9.2 mg/dL (8.4-10.2); CREATININE SERUM 2.3 mg/dL (0.6-1.4); MAGNESIUM 2.2 mg/dL (1.6-3.0); POTASSIUM 4.1 mmol/L (3.5-5.1)
[2016-12-22] MEDS ORDERED: SPIRONOLACTONE50 MG PO (12:17)
[2016-12-22] MEDS ORDERED: FERROUS GLUCON324 M1 PO (13:10)
[2017-02-25] MEDS ORDERED: PACERONE100 MG PO (12:18)
[2017-02-25] MEDS ORDERED: DEMADEX PO (12:18)
[2017-02-25] MEDS ORDERED: COREG3.125 MG PO (12:18)
[2017-02-25] MEDS ORDERED: ZOCOR PO (12:18)
[2017-02-25] MEDS ORDERED: LEVO-T112 MCG PO (12:19)
[2017-02-25] MEDS ORDERED: ACID CONTROLLER20 MG PO (12:19)
[2017-02-25] MEDS ORDERED: ASPIRIN81 M2 PO (12:19)
[2017-02-25] MEDS ORDERED: BIMATOPROST2.5 ML OU (12:19)
[2017-02-25] MEDS ORDERED: ELIQUIS2.5 MG PO (12:20)
[2017-02-25] MEDS ORDERED: ALBUTEROL20 ml INH (12:20)
[2017-02-25] MEDS ORDERED: RENVELA800 MG PO (12:20)
[2017-02-25] MEDS ORDERED: FERROUS GLUCON324 M1 PO (12:20)
[2017-02-25] MEDS ORDERED: FOLIC ACID1 MG PO (12:20)
[2017-02-25] MEDS ORDERED: FLONASE 0.05% N16 GM (12:20)
[2017-02-25] MEDS ORDERED: HUMALOG100 UNIT/2 (12:21)
[2017-02-25] MEDS ORDERED: MULTIVITAMINS1 EAC3 PO (12:21)
== END 2016-12-22 13:55 | disposition home health service (06) | DRG 291 ==
LOC: CED 17:02 → C5C 18:50 → CEDOF 18:50 → CED 19:31 → CEDOF 19:31 → C5C 19:31 → CEDOF 22:15 → C5C 22:15 → CEDOF 12-19 09:20 → C5C 12-19 09:20
PROVIDERS: Internal Medicine Cardiovascular Disease; Internal Medicine Nephrology; Student in an Organized Health Care Education/Training Program
DX: I13.0 Hypertensive heart and chronic kidney disease with heart failure and stage 1 through stage 4 chronic kidney disease, or unspecified chronic kidney disease (principal); I50.23 Acute on chronic systolic (congestive) heart failure; N18.4 Chronic kidney disease, stage 4 (severe); E11.22 Type 2 diabetes mellitus with diabetic chronic kidney disease; I48.0 Paroxysmal atrial fibrillation; I08.3 Combined rheumatic disorders of mitral, aortic and tricuspid valves; E87.1 Hypo-osmolality and hyponatremia; Z79.84 Long term (current) use of oral hypoglycemic drugs; I25.5 Ischemic cardiomyopathy; I25.2 Old myocardial infarction; Z79.01 Long term (current) use of anticoagulants; E78.5 Hyperlipidemia, unspecified; Z96.653 Presence of artificial knee joint, bilateral; Z95.5 Presence of coronary angioplasty implant and graft; E03.9 Hypothyroidism, unspecified; Z87.891 Personal history of nicotine dependence; E87.6 Hypokalemia; D63.1 Anemia in chronic kidney disease
CPT/HCPCS: 36415; 36600; 71010; 80048; 80053; 80061; 80076; 81003; 82553; 82728; 82803; 82947; 83036; 83540; 83550; 83605; 83735; 83880; 84100; 84443; 84484; 85025; 85027; 85610; 85730; 87040; 93005; 96374; 99285; J0885; J1250; J1815; J2916

== ENCOUNTER 2016-12-27 01:45 | Inpatient (IN) | payer MEDICARE, BC ==
[~2016-12-27] VITALS: Ht 170.2 cm; Wt 84.4 kg
--- NOTE | ~2016-12-27 | CO ---
Unit #: [id number] #: [id number] Patient: MECCA LOYOLA [id number] [facility]. [place], [place] [address] [id number] I MR#: [id number] NAME: MECCA LOYOLA ROOM: [facility] Age: 86 Sex: M Admission Date: 12/27/2016 : 1930 Attending Physician: Tamara Mike M.D. Primary Care Physician: Blake Dhillon M.D. Consultation Date: 12/30/2016 CONSULTATION REPORT REASON FOR CONSULTATION Status post AV fistula, chronic kidney disease stage 5. HISTORY OF PRESENT ILLNESS This is an 86-year-old gentleman who was admitted with a right pleural effusion, possible acute on chronic systolic heart failure. He has previously been admitted at [facility] for similar reason. The patient states that he had a right radiocephalic fistula placed roughly two months ago, and subsequently had additional procedure one month ago with Dr. Espinal at [facility]. He was scheduled to see him next week. He expressed desire to have the scooter removed from his incision because they have been in place for over four weeks now. The patient currently otherwise feels well. He does have some shortness of breath, but denies any chest pain. He denies any significant pain to his right hand. He is right handed. He does not have any numbness or tingling or decreased dexterity of his fingers. Overall, he is not a great historian and was only able to provide details as above. Additional details were obtained from his chart. PAST MEDICAL HISTORY Chronic systolic heart failure, ischemic cardiomyopathy; chronic kidney disease stage 4, paroxysmal atrial fibrillation with chronic anticoagulation with Eliquis in the past, coronary artery disease, prior cardiac stent placement, sick sinus syndrome, prior permanent pacemaker placement, chronic anemia, hypertension, hyperlipidemia, amiodarone induced hypothyroidism, history of thrombocytopenia secondary to anticoagulation in the past. PAST SURGICAL HISTORY 1. Right radiocephalic AV fistula. 2. Revision of right AV fistula on 11/2016. 3. Rotator cuff repair. 4. Pacemaker. 5. Bilateral total knee replacement. 6. Basel cell carcinoma removal. SOCIAL HISTORY He is . Denies any illicit use of drugs. Denies any alcohol. Denies any tobacco. Ambulates with a walker. Lives at home. FAMILY HISTORY Denies any known bleeding disorders, clotting disorders, or aneurysms. ALLERGIES Unit #: [id number] #: [id number] Patient: MECCA LOYOLA No known drug allergies. MEDICATIONS Eye drops, Pepcid, aspirin, penicillin, Aldactone, levothyroxine, Imdur, Nitrostat, amiodarone, fluticasone, Eliquis, Coreg, torsemide, Zocor, ferrous gluconate. REVIEW OF SYSTEMS As detained above in HPI. In addition, CONSTITUTIONAL: No fevers or chills. ENT: No ear pain or tinnitus. RESPIRATIONS: Does have shortness of breath. Denies any cough. CARDIOVASCULAR: Denies any chest pain or palpitations. GI: Denies any nausea, vomiting, or diarrhea. : Denies any hematuria. HEME: Positive for easy bruising. ENDOCRINE: Denies any excessive thirst or hunger. MUSCULOSKELETAL: Denies any neck pain or back pain. INTEGUMENTARY: Denies any rash or pruritus. PHYSICAL EXAMINATION VITAL SIGNS: Temperature is 97.6, heart rate 64, blood pressure is 124/64, respirations 16, 99% on 4 L. CONSTITUTIONAL: Well appearing. EYES: No scleral icterus. NECK: No JVD or carotid bruit. LYMPH: No lymphadenopathy of neck or groins. CARDIOVASCULAR: Regular rate and rhythm. Pulse exam; 2+ right radial pulse, positive thrill in the right antecubital fossa. Incision has scooter intact. No erythema, no drainage. EXTREMITIES: Right upper extremity, no swelling. RESPIRATIONS: Nonlabored. Crackles at the bases and diminished GI: Soft, nontender, and nondistended. SKIN: No rashes or ulcerations. PSYCH: Normal mood and affect. DIAGNOSTIC STUDIES LABORATORY RESULTS: Sodium 135, potassium 3.9, chloride 99, CO2 of 24, BUN 49, creatinine 2.8, glucose 185. ASSESSMENT AND PLAN Chronic kidney disease stage 4, status post right revision of AV fistula. As best I can gather, it appears he had a failed right radiocephalic fistula performed in 10/2016, and it appears based on his incision that was converted to a distal right radiocephalic fistula, with a vertical incision below his antecubital fossa. On exam, he has a very strong thrill over the cephalic vein at the antecubital fossa, while the vein at the antecubital fossa appears appropriate for needle access, I do not believe there is enough maturity of the fistula at the more proximal portion to sustain two needle access at this point. However, it may just be a matter of time before it matures well enough for growth. If he should need urgent dialysis, he will adequately need a Trialysis catheter or a tunneled dialysis catheter. He should follow up with his primary vascular surgeon, Dr. Espinal at [facility] once discharged from the hospital for himself to assess maturity. At the patient's request, I did remove the scooter in the incision as his wound appeared to be healing well. I removed the scooter at bedside and placed the Steri-Strips across. No acute vascular surgery needed at this time. Please feel free Unit #: [id number] #: [id number] Patient: MECCA LOYOLA to contact us should any other questions or issues arise. Dictated by... Leigh Daly TD: 12/31/2016 04:54 JOB #: [id number] CONSULTATION REPORT Page 1 of 1 X X CONSULTATION REPORT
--- NOTE | ~2016-12-27 | CT4 ---
[facility] A Service of [facility] RADIOLOGY TEXT RESULTS PATIENT: MECCA LOYOLA LOCATION: [facility] 560-01 : 31 UNIT #: [id number] AGE: [address]: Ibrahmia Roldan MD SEX: M ORDER DR: [id number] [facility] [address] [place], [place] [address] [id number] I MR#: [id number] Acc #: [id number] NAME: MECCA LOYOLA : 1930 SEX: M STUDY DATE/TIME: 12/27/2016 4:12 UNIT: [facility] ROOM: [facility] STUDY DESCRIPTION: CT Abd and Pelv Wo Cont Attending Physician: Ibrahima Roldan M.D. Ordering Physician: Jaison Blunt M.D. Primary Care Physician: Blake Dhillon M.D. MEDICAL IMAGING REPORT This report is preliminary unless electronic signature is present EXAMINATION CT abdomen and pelvis without contrast. DATE 12/27/2016 HISTORY 86-year-old male with shortness of breath, upper abdominal pain, fever and weakness. Symptoms have been present for 2 days. Additional history of hemochromatosis. COMPARISON CT abdomen and pelvis without contrast, 09/17/2016. PROCEDURE 3 mm noncontrast axial images through the abdomen and pelvis. Enteric contrast not administered. Sagittal and coronal reformatted images were obtained. This CT exam was performed with one or more of the following radiation dose reduction techniques: automatic exposure control, adjustment of mA and/or kV according to patient size, and iterative reconstruction. FINDINGS ABDOMEN FINDINGS: Moderate layering right pleural effusion to a depth of 5.5 cm. Small left pleural effusion. Dense right lower lobe airspace disease may represent changes of pneumonia. Atelectasis or pneumonia also present in the right middle lobe. Mild left basilar atelectasis. Stable cardiomegaly with dense coronary artery calcification. Pacemaker leads are in place. Benign calcified granulomatous changes in the right hilum and azygo-esophageal recess. Small quantity ascites has developed particularly in the right upper [facility] A Service of [facility] RADIOLOGY TEXT RESULTS PATIENT: MECCA LOYOLA LOCATION: [facility] 560-01 : 31 UNIT #: [id number] AGE: [address]: Ibrahima Roldan MD SEX: M ORDER DR: elicia. The gallbladder is contracted around high-density gallstones and/or sludge. Pericholecystic fluid is present. How much of this is related to ascites versus cholecystitis is unclear. Nonobstructing renal stones versus renovascular calcifications unchanged. Spleen, adrenals normal. Mild generalized pancreatic parenchymal atrophy. Limited evaluation of bowel due to lack of enteric contrast but no focal bowel inflammation is seen. Appendix not visualized, but no pericecal inflammation is appreciated. PELVIS FINDINGS: A few shotty left common iliac chain nodes are stable and are thought to be benign reactive. Trace pelvic free fluid. Urinary bladder and rectum are normal. Small bowel, inguinal hernias contain only fat. No acute osseous abnormalities. Old left rib fracture. IMPRESSION 1. Gallbladder is filled with high-density stones and sludge. Ascites has developed in the right upper quadrant of the abdomen and surrounding gallbladder. Acute cholecystitis cannot be excluded. Correlate with clinical symptoms. Consider correlation with gallbladder ultrasound. 2. No abnormal biliary dilation is seen. 3. Trace pelvic free fluid. 4. Moderate right, small left pleural effusions with dense right middle lobe and right lower lobe airspace disease. Correlate clinically for pneumonia. Mild left basilar atelectasis. 5. Nonobstructing bilateral renal stones versus renovascular calcifications. Dictated by... Liliam Meyers M.D. THIS IS AN ELECTRONICALLY VERIFIED REPORT Liliam Meyers M.D. at 12/27/2016 9:41 PM KARTIK/lan TD: 12/27/2016 19:48 JOB #: [id number] MEDICAL IMAGING REPORT Page 1 of 1 COPY
--- NOTE | ~2016-12-27 | DS ---
Unit #: [id number] #: [id number] Patient: MECCA LOYOLA [id number] [facility]. [place], [place] [address] [id number] I MR#: [id number] NAME: MECCA LOYOLA ROOM: 560 Age: 86 Sex: M Admission Date: 12/27/2016 : 1930 Discharge Date: 01/02/2017 Attending Physician: Tamara Mike M.D. Primary Care Physician: Blake Dhillon M.D. DISCHARGE SUMMARY REASON FOR ADMISSION Volume overload, dyspnea. HISTORY OF PRESENT ILLNESS Please see H and P for complete details of initial part of hospital stay. Patient was originally admitted secondary to shortness of breath/volume overload. Consultations were placed to [facility] as well as [facility]. Through hospital course, the patient was placed on dobutamine drip as well as appropriate IV diuresis. Both services continued to follow the patient. There was a question about fistula placement that he had done previously secondary to need for possible hemodialysis and the maturity of the aforementioned fistula. Therefore, consultation was placed to vascular services as well. Through hospital course, it was also noted that patient did have elevated LFTs likely secondary to shock liver and/or fluid overload secondary to heart failure. Dr. Pelayo was consulted as well. After appropriate diuresis as well as volume control, cardiology and nephrology services both stated patient was stable for discharge home. However, moving forward for further volume overload issues and/or dyspnea/heart failure exacerbation, strong consideration will now be given to hemodialysis moving forward. This will be conducted by Dr. Rojas and associates. The patient will be discharged home. Overall, his long-term prognosis is guarded at best secondary to associated co-morbid conditions. His change of re-admission is significantly elevated. FINAL DISCHARGE DIAGNOSES 1. Acute on chronic systolic heart failure, ejection fraction approximately 30%. 2. Acute on chronic diastolic heart failure. 3. Prior myocardial infarction with stent placement. 4. Acute on chronic kidney disease stage 4. 5. Prior pacemaker placement. 6. Hypertension. 7. Hyperlipidemia. 8. Anemia. 9. Prior history of thrombocytopenia, secondary to Eliquis. 10. Elevated liver function tests, likely secondary to shock liver from fluid overload. 11. Volume overload on admission. 12. Dyspnea, multifactorial, seen on admission. Unit #: [id number] #: [id number] Patient: MECCA LOYOLA FINAL DISCHARGE MEDICATIONS 1. Amiodarone 200 mg p.o. daily. 2. Flonase one spray each nostril daily. 3. Eliquis 2.5 mg p.o. b.i.d. 4. Coreg 3.125 mg p.o. b.i.d. 5. Zaroxolyn 5 mg p.o. Thursday, Thursday, Thursday. 6. Demadex 100 mg p.o. b.i.d. 7. Zocor 40 mg p.o. nightly. 8. Ferrous gluconate 324 mg p.o. daily. 9. Eye drops as directed. 10. Pepcid 10 mg p.o. b.i.d. 11. Aspirin 81 mg p.o. daily. 12. Klor-Con 20 mEq p.o. b.i.d. 13. Synthroid 112 mcg p.o. daily. 14. Imdur 30 mg p.o. daily. 15. Sublingual nitroglycerin 0.4 mg p.r.n. as directed for chest pain. DISCHARGE CONDITION Stable. DISCHARGE DISPOSITION Home, chance of re-admission high. PROGNOSIS Guarded intermediate. Dictated by... Leigh Ramsey/bella TD: 01/05/2017 09:57 JOB #: [id number] DISCHARGE SUMMARY Page 1 of 1 X Tamaar Mike MD X DISCHARGE SUMMARY
--- NOTE | ~2016-12-27 | HP ---
Unit #: [id number] #: [id number] Patient: MECCA LOYOLA [id number] [address] [place], [place] [address] [id number] MR#: [id number] NAME: MECCA LOYOLA ROOM: 85550 Age: 86 Sex: M Admission Date: 12/27/2016 : 1930 Attending Physician: Ibrahima Roldan M.D. Primary Care Physician: Blake Dhillon M.D. HISTORY AND PHYSICAL REASON FOR ADMISSION Right pleural effusion, dyspnea multifactorial. HISTORY OF PRESENT ILLNESS The patient is an 86-year-old male who was recently discharged from our hospital on 12/22/2016 secondary to mzwgb-ol-pirfxbb systolic heart failure, ischemic cardiomyopathy, as well as CKD stage 4, who went home, apparently initially was well, subsequently started decompensating, became more dyspneic, presented back to the ER for further evaluation. Initial workup in the emergency room raised the possibility of qcaxb-pp-mfapexf diastolic/systolic heart failure. The patient had an elevated BNP as well as increased right-sided pleural effusion. He was also treated for healthcare-acquired pneumonia as well although it seems likely chest x-ray findings are more consistent with fluid overload. PAST MEDICAL HISTORY 1. Chronic systolic heart failure, ejection fraction 30% to 35%. 2. Ischemic cardiomyopathy. 3. Chronic kidney disease stage 4. 4. Paroxysmal atrial fibrillation with chronic anticoagulation with Eliquis in the past. 5. Coronary artery disease. 6. Prior stent placement. 7. Sick sinus syndrome. 8. Prior permanent pacemaker placement. 9. Chronic anemia. 10. Hypertension. 11. Hyperlipidemia. 12. Amiodarone-induced hypothyroidism. 13. Prior history of thrombocytopenia secondary to anticoagulation in the past. PAST SURGICAL HISTORY 1. Right AV shunt placement. 2. Permanent pacemaker. 3. Rotator cuff repair. 4. Bilateral total knee replacement. 5. Basal cell carcinoma removed. SOCIAL HISTORY , no illicits, no alcohol or drug use, ambulates with a walker, lives at home. Unit #: [id number] #: [id number] Patient: MECCA LOYOLA FAMILY HISTORY Coronary artery disease. ALLERGIES No known drug allergies. HOME MEDICATION LIST As reviewed from previous discharge summary includes eye drops, Pepcid, aspirin, penicillin, Aldactone, levothyroxine, Imdur, Nitrostat, amiodarone, fluticasone, Eliquis, Coreg, torsemide, Zocor, ferrous gluconate. REVIEW OF SYSTEMS Please see HPI. Twelve points otherwise negative except for those positive noted in the HPI. PHYSICAL EXAMINATION VITAL SIGNS: Temperature 97.5, pulse 63, respiratory rate 16, blood pressure 115/53. GENERAL APPEARANCE: The patient is a frail 86 year old with numerous bruises noted on upper and lower extremities from previous blood draws. As well, patient appears to be somewhat somnolent at the present time. HEAD EXAM: Normocephalic and atraumatic. EAR EXAM: Tympanic membranes do not reveal any erythema or injection. NECK EXAM: Supple. CVS: S1, S2, without murmur. Pacemaker irregularly irregular. A grade 3/6 systolic murmur heard. ABDOMEN: Soft, nontender, nondistended. CHEST EXAM: Reveals crackles at bases with diminished right lung exam with diminished breath sounds. LOWER EXTREMITY EXAM: No evidence of any calf tenderness, 1 to 2+ lower extremity edema noted. NEUROLOGICAL EXAM: Patient alert and oriented x2. INITIAL IMPRESSION 1. Argch-os-qnhovze systolic/diastolic heart failure. 2. Right pleural effusion. 3. Dyspnea, multifactorial. 4. Ischemic cardiomyopathy. 5. Chronic kidney disease. 6. Paroxysmal atrial fibrillation, on chronic anticoagulation. 7. Coronary artery disease. 8. Sick sinus syndrome. 9. Chronic anemia. 10. Llybl-hy-nugcstb kidney disease. Baseline creatinine, I believe, closer to 2.5 to 3.0, currently 3.9. PLAN 1. Admission telemetry floor. 2. Cardiology consultation. 3. Nephrology consultation. It seems more fluid in nature rather than acute infiltrate in nature; therefore, will try to deescalate his antibiotics, especially his vancomycin in lieu of elevated creatinine. Further diuresis and/or management of fluid will be per the direction of Cardiology. Certainly patient was recently on dobutamine as well as IV diuresis on recent hospital admissions, to Unit #: [id number] #: [id number] Patient: MECCA LOYOLA which he has had numerous over the past six months, in the past and in discussion with the patient's family consideration and recommendation was made for DNR status; however, patient's family refused. They wish for all resuscitative measures to be done. They are well aware of the patient's associated comorbid conditions as well as chronic medical conditions and his guarded prognosis. Dictated by Leigh Ramsey/nicole TD: 12/27/2016 17:15 JOB #: [id number] HISTORY AND PHYSICAL Page 1 of 1 X Tamara Mike MD X HISTORY AND PHYSICAL
--- NOTE | ~2016-12-27 | CO ---
Unit #: [id number] #: [id number] Patient: MECCA LOYOLA [id number] [address] [place], [place] [address] [id number] MR#: [id number] NAME: MECCA LOYOLA ROOM: 560 Age: 86 Sex: M Admission Date: 12/27/2016 : 1930 Attending Physician: Tamara Mike M.D. Primary Care Physician: Blake Dhillon M.D. Consultation Date: 12/28/2016 CONSULTATION REPORT REASON FOR CONSULTATION The patient with "cholecystitis." HISTORY OF PRESENT ILLNESS The patient is a very pleasant 86-year-old white gentleman. The patient is quite frail. He is sitting up in the chair and I have been asked to see him because of abnormality in the CAT scan and elevated hepatic transaminases. The patient denies any history of right upper quadrant or upper abdominal pain or dyspepsia. In fact, he is totally asymptomatic in that regard. His admission precipitated by a combination of worsening congestive heart failure on a background of chronic obstructive pulmonary disease and respiratory failure. He also has atrial fibrillation, on long-term anticoagulation with Eliquis and also history of acute on chronic kidney injury and underlying diabetes. The patient also has history of coronary artery disease, status post percutaneous transluminal coronary angioplasty and angioplasty and coronary stents and acute on chronic systolic congestive heart failure. There is no history of overt GI bleed in the form of hematemesis, melena, or hematochezia. His recent ultrasound and CAT scan shows presence of cholelithiasis, but no biliary ductal dilation. His liver function tests, which were normal to begin with until 12/19, a week later are now peak, AST and ALT are 1800 and 1600 respectively. There is no history of fever, chills, or rigors. PAST MEDICAL HISTORY Significant for history of chronic systolic heart failure ischemic cardiomyopathy, diabetes, stage 4 chronic kidney disease, ischemic cardiomyopathy, as well as paroxysmal atrial fibrillation, on long-term anticoagulation with Eliquis, coronary disease status post percutaneous transluminal coronary angioplasty and angioplasty and stent placement, sick sinus syndrome, hypertension, amiodarone induced hypothyroidism, and chronic normochromic normocytic anemia. Also history of thrombocytopenia as a result of anticoagulation with Heparin in the past. PAST SURGICAL HISTORY Included a permanent pacemaker, bilateral total knee replacements, removal of basal cell cancer of the face and right AV shunt placement. MEDICATIONS At home included the following, 1. Amiodarone. 2. Coreg. 3. Torsemide. 4. Zocor. 5. Bimatoprost. Unit #: [id number] #: [id number] Patient: MECCA LOYOLA 6. Famotidine. 7. Aspirin. 8. Synthroid. 9. Imdur. 10. Flonase. 11. Penicillin. 12. Nitrostat. 13. Eliquis. 14. Ferrous gluconate. ALLERGIES He has no known drug allergies. SOCIAL HISTORY The patient lives at home with his and does not smoke or drink alcohol. He ambulates with a walker. Lives at home. FAMILY HISTORY Significant for coronary artery disease. REVIEW OF SYSTEMS Detailed review of organ systems does not reveal any recent weight loss. No history of fever, chills, or rigors. No history of headache, seizures, chest pain, or syncope. No history of cough, expectoration, or hemoptysis. No history of dysuria, hematuria, or pyuria. No history of focal seizures or extremity weakness. PHYSICAL EXAMINATION GENERAL: He is alert and oriented, little frail, and sitting up in chair. VITAL SIGNS: Stable with a temperature of 97.5, pulse is 85 per minute and regular, respiratory rate is 18, and blood pressure is 99/44. He has mild pallor with no icterus, lymphadenopathy. Grade 1 pitting peripheral edema. CARDIOVASCULAR EXAMINATION: Normal. Heart sounds. No murmurs on auscultation. LUNGS: Bilateral symmetric diminished air entry. ABDOMEN: Soft, and nontender. Liver and spleen are not palpable. Bowel sounds normal. LABORATORY DATA Lab evaluation showed bowel markedly elevated transaminases with peak AST and ALT of 1800 and 1600. His CO2 is normal. BUN and creatinine of 53 and 3.2. The blood glucose is varying between at 192 and 222. INR is 1.4. CBC shows a hemoglobin of 9.3 with normochromic normocytic indices. White count is normal and platelet count is 103. Imaging studies, the patient's CT scan shows cholelithiasis, but no biliary ductal dilation. The BNP is 1900 last month and now a week later it is 1600. CLINICAL IMPRESSION The patient most likely has either chronic passive venous congestion of the liver or shock liver from hypotensive episode. This pattern of enzyme elevation with very high transaminases and normal bilirubin alkaline phosphatase is not consistent with biliary disease and there is no suggestion of cholecystitis. These numbers will improve spontaneously after control of the patient's heart failure, which is being currently undertaken. No other specific intervention is indicated. We will also monitor his PT and INR. Other less likely possibilities that of Unit #: [id number] #: [id number] Patient: MECCA LOYOLA amiodarone use liver toxicity and I agree with the fact that his amiodarone has been on hold. With no other intervention is indicated, we will monitor the patient's LFTs over the next 24 to 48 hours when it resolved spontaneously with control of heart failure. Thank you very much for asking me to see this pleasant gentleman. Dictated by... Johnny Pelayo M.D. SADIE/tessa TD: 12/31/2016 03:27 JOB #: [id number] CC: Leigh Ruelas M.D. Matthew L. Offutt, M.D. CONSULTATION REPORT Page 1 of 1 X Johnny Pelayo MD CONSULTATION REPORT
--- NOTE | ~2016-12-27 | EKG ---
PATIENT: MECCA LOYOLA UNIT #: [id number] Ventricular Rate: 85 BPM Atrial Rate: 84 BPM QRS Duration: 104 ms Q-T Interval: 414 ms QTC Calculation(Bezet): 492 ms Calculated R [place]: -40 degrees Calculated T [place]: 150 degrees Diagnosis Line: Accelerated Junctional rhythm with retrograde Diagnosis Line: conduction with occasional Premature ventricular Diagnosis Line: complexes Diagnosis Line: Left axis deviation Diagnosis Line: Non-specific intra-ventricular conduction delay Diagnosis Line: Low voltage QRS Diagnosis Line: Inferior infarct , age undetermined Diagnosis Line: ST and T wave abnormality, consider anterolateral Diagnosis Line: ischemia Diagnosis Line: Abnormal ECG Diagnosis Line: When compared with ECG of 27-DEC-2016 02:06, Diagnosis Line: (unconfirmed) Diagnosis Line: No significant change was found Diagnosis Line: Confirmed by CRUZ TIRADO MD ([id number]) on 12/31/2016 Diagnosis Line: 6:13:03 PM INTERPRETING MD: CANDIDA BARRIOS
--- NOTE | ~2016-12-27 | EKG ---
PATIENT: MECCA LOYOLA UNIT #: [id number] Ventricular Rate: 60 BPM Atrial Rate: 58 BPM P-R Interval: 188 ms QRS Duration: 170 ms Q-T Interval: 630 ms QTC Calculation(Bezet): 630 ms P [place]: 151 degrees Calculated R [place]: -89 degrees Calculated T [place]: 84 degrees Diagnosis Line: AV dual-paced rhythm Diagnosis Line: Abnormal ECG Diagnosis Line: No previous ECGs available Diagnosis Line: Confirmed by CRUZ TIRADO MD ([id number]) on 12/31/2016 Diagnosis Line: 7:34:05 AM INTERPRETING MD: CANDIDA BARRIOS
--- NOTE | ~2016-12-27 | CR72 ---
[facility] A Service of [facility] RADIOLOGY TEXT RESULTS PATIENT: MECCA LOYOLA LOCATION: C5 560-01 : [birth year] UNIT #: [id number] AGE: [address]: Ibrahima Roldan MD SEX: M ORDER DR: [id number] [facility] [address] [place], [place] [address] [id number] I MR#: [id number] #: [id number] NAME: MECCA LOYOLA : 1930 SEX: M STUDY DATE/TIME: 12/27/2016 2:47 UNIT: CEDOF ROOM: 66969 STUDY DESCRIPTION: CR Chest Single View Portable Attending Physician: Ibrahima Roldan M.D. Ordering Physician: Jaison Blunt M.D. Primary Care Physician: Blake Dhillon M.D. MEDICAL IMAGING REPORT This report is preliminary unless electronic signature is present EXAM AP portable chest. DATE OF EXAM 12/27/2016 HISTORY Shortness of breath, congestion and weakness for 2 days. COMPARISON AP portable chest, 12/17/2016. FINDINGS Small right pleural effusion has increased. Increasing right basilar atelectasis or infiltrate. Mild left basilar atelectasis or infiltrate unchanged. Stable cardiomegaly. Left chest wall pacemaker unchanged. No visible pneumothorax. IMPRESSION Interval increase in small right pleural effusion with increasing right basilar atelectasis or infiltrate. Left basilar infiltrate unchanged. Dictated by... Liliam Meyers M.D. THIS IS AN ELECTRONICALLY VERIFIED REPORT Liliam Meyers M.D. at 12/27/2016 9:41 PM KARTIK/lan TD: 12/27/2016 17:53 JOB #: [id number] [facility] A Service of [facility] RADIOLOGY TEXT RESULTS PATIENT: MECCA LOYOLA LOCATION: C5 560-01 : [birth year] UNIT #: [id number] AGE: [address]: Ibrahima Roldan MD SEX: M ORDER DR: MEDICAL IMAGING REPORT Page 1 of 1 COPY
--- NOTE | ~2016-12-27 | EKG ---
PATIENT: MECCA LOYOLA UNIT #: [id number] Ventricular Rate: 85 BPM Atrial Rate: 84 BPM QRS Duration: 104 ms Q-T Interval: 414 ms QTC Calculation(Bezet): 492 ms Calculated R [place]: -40 degrees Calculated T [place]: 150 degrees Diagnosis Line: Accelerated Junctional rhythm with retrograde Diagnosis Line: conduction with occasional Premature ventricular Diagnosis Line: complexes Diagnosis Line: Left axis deviation Diagnosis Line: Low voltage QRS Diagnosis Line: Inferior infarct , age undetermined Diagnosis Line: ST and T wave abnormality, consider anterolateral Diagnosis Line: ischemia Diagnosis Line: Abnormal ECG Diagnosis Line: When compared with ECG of 27-DEC-2016 02:06, Diagnosis Line: (unconfirmed) Diagnosis Line: Junctional rhythm has replaced Electronic Diagnosis Line: ventricular pacemaker Diagnosis Line: Confirmed by SHAYNA JAEGER MD ([id number]) on Diagnosis Line: 12/29/2016 12:33:12 PM INTERPRETING MD: MIL BARRIOS
[~2016-12-27 01:45] MED LIST changes: +ACID CONTROLLER20 MG PO; +AMIODARONE HCL200 MG PO; +FERROUS GLUCON324 M1 PO; +FLONASE ALLERG9.9 ML; +FLOVENT HFA10.6 GM INH; +IMDUR PO; +NITROSTAT0.4 MG PO; +SPIRONOLACTONE50 MG PO
[2016-12-27 03:11] LABS: POC - CKMB <1.0 ng/mL (0.0-7.9); POC - TROPONIN <0.05 ng/mL (<=0.05)
[2016-12-27 03:27] LABS: INR 1.7; PARTIAL THROMBOPLASTIN TIME 30.9 SECONDS (23.5-31.3); PROTHROMBIN TIME (PATIENT) 18.3 SECONDS (10.0-11.7)
[2016-12-27 03:37] LABS: BASOPHIL% 0.2 % (0-2.5); HEMATOCRIT 35.2 % (38.0-50.0); HEMOGLOBIN 10.9 gm/dL (13.0-16.0); LYMPHOCYTE# 0.5 X10e3 (1.0-3.5); LYMPHOCYTE% 3.1 % (17.0-45.0); MEAN CELL VOLUME 85.7 FL (83-96); MEAN CORPUSCULAR HEMOGLOBIN 26.6 PG (28-34); MEAN CORPUSCULAR HGB CONC 31.1 g/dL (30-36); MEAN PLATELET VOLUME 9.4 FL (6.5-11.5); MONOCYTE# 1.7 X10e3 (0-1.0); MONOCYTE% 10.6 % (3.0-12.0); NEUTROPHIL% 86.1 % (40-75); PLATELET COUNT 186 X10e3 (140-420); RED BLOOD COUNT 4.11 X10e (3.90-5.60); RED CELL DISTRIBUTION WIDTH 18.9 % (11.0-15.5); WHITE BLOOD COUNT 16.3 X10e3 (4.0-10.5)
[2016-12-27 03:38] LABS: DIFF IND YES
[2016-12-27 03:44] LABS: ALBUMIN SERUM 3.6 g/dL (3.5-5.0); BILIRUBIN,INDIRECT 1.4 mg/dL (0.0-0.9); BILIRUBIN,TOTAL 2.4 mg/dL (0.2-2.0); BUN/CREATININE RATIO 15.12; CREATININE SERUM 3.9 mg/dL (0.6-1.4); GLOM FILT RATE Estimated 13.2 mL/min (>60); PROTEIN TOTAL SERUM 7.3 g/dL (6.0-8.3)
[2016-12-27 03:47] LABS: POTASSIUM 6.4 mmol/L (3.5-5.1)
[2016-12-27 03:52] LABS: PLATELET ESTIMATE NORMAL (NORMAL)
[2016-12-27 03:54] LABS: ANISOCYTOSIS MOD; POIKILOCYTOSIS SL
[2016-12-27 03:57] LABS: HYPOCHROMIA SL; SPHEROCYTE SL
[2016-12-27 06:40] LABS: POC - CKMB <1.0 ng/mL (0.0-7.9); POC - TROPONIN <0.05 ng/mL (<=0.05)
[2016-12-27 08:28] LABS: BUN/CREATININE RATIO 15.64; CALCIUM SERUM 8.7 mg/dL (8.4-10.2); CREATININE SERUM 3.9 mg/dL (0.6-1.4); GLOM FILT RATE Estimated 13.2 mL/min (>60)
[2016-12-28 09:19] LABS: BASOPHIL% 0.4 % (0-2.5); EOSINOPHIL% 0.5 % (0.0-7.0); HEMATOCRIT 29.5 % (38.0-50.0); HEMOGLOBIN 9.3 gm/dL (13.0-16.0); LYMPHOCYTE# 0.4 X10e3 (1.0-3.5); LYMPHOCYTE% 4.1 % (17.0-45.0); MEAN CELL VOLUME 85.3 FL (83-96); MEAN CORPUSCULAR HGB CONC 31.6 g/dL (30-36); MONOCYTE# 0.5 X10e3 (0-1.0); MONOCYTE% 5.5 % (3.0-12.0); NEUTROPHIL# 8.4 X10e3 (1.5-7.1); NEUTROPHIL% 89.5 % (40-75); PLATELET COUNT 103 X10e3 (140-420); RED BLOOD COUNT 3.46 X10e (3.90-5.60); RED CELL DISTRIBUTION WIDTH 20.3 % (11.0-15.5); WHITE BLOOD COUNT 9.3 X10e3 (4.0-10.5)
[2016-12-28 09:20] LABS: DIFF IND NO
[2016-12-28 10:23] LABS: ALBUMIN SERUM 3.2 g/dL (3.5-5.0); BILIRUBIN,TOTAL 1.7 mg/dL (0.2-2.0); BUN/CREATININE RATIO 15.67; CALCIUM SERUM 8.1 mg/dL (8.4-10.2); CREATININE SERUM 3.7 mg/dL (0.6-1.4); MAGNESIUM 2.5 mg/dL (1.6-3.0); POTASSIUM 3.7 mmol/L (3.5-5.1)
[2016-12-29 05:18] LABS: HEMOGLOBIN 8.8 gm/dL (13.0-16.0); MEAN CELL VOLUME 85.7 FL (83-96); MEAN CORPUSCULAR HEMOGLOBIN 27.1 PG (28-34); MEAN CORPUSCULAR HGB CONC 31.6 g/dL (30-36); RED BLOOD COUNT 3.27 X10e (3.90-5.60); RED CELL DISTRIBUTION WIDTH 19.6 % (11.0-15.5); WHITE BLOOD COUNT 8.7 X10e3 (4.0-10.5)
[2016-12-29 05:28] LABS: INR 1.4; PROTHROMBIN TIME (PATIENT) 15.2 SECONDS (10.0-11.7)
[2016-12-29 06:38] LABS: BILIRUBIN,TOTAL 1.8 mg/dL (0.2-2.0); BUN/CREATININE RATIO 16.56; CALCIUM SERUM 8.1 mg/dL (8.4-10.2); CREATININE SERUM 3.2 mg/dL (0.6-1.4); GLOM FILT RATE Estimated 16.7 mL/min (>60); POTASSIUM 3.1 mmol/L (3.5-5.1); PROTEIN TOTAL SERUM 5.9 g/dL (6.0-8.3)
[2016-12-30 06:12] LABS: BUN/CREATININE RATIO 17.5; CALCIUM SERUM 8.2 mg/dL (8.4-10.2); CREATININE SERUM 2.8 mg/dL (0.6-1.4); GLOM FILT RATE Estimated 19.7 mL/min (>60); POTASSIUM 3.9 mmol/L (3.5-5.1)
[2016-12-30 14:29] LABS: BILIRUBIN, DIRECT 0.6 mg/dL (0.0-0.2); BILIRUBIN,INDIRECT 1.1 mg/dL (0.0-0.9); BILIRUBIN,TOTAL 1.7 mg/dL (0.2-2.0); PROTEIN TOTAL SERUM 5.8 g/dL (6.0-8.3)
[2016-12-31 08:32] LABS: HEMOGLOBIN 9.1 gm/dL (13.0-16.0); MEAN CELL VOLUME 85.5 FL (83-96); MEAN CORPUSCULAR HEMOGLOBIN 26.7 PG (28-34); MEAN CORPUSCULAR HGB CONC 31.2 g/dL (30-36); MEAN PLATELET VOLUME 9.5 FL (6.5-11.5); RED BLOOD COUNT 3.4 X10e (3.90-5.60); WHITE BLOOD COUNT 7.1 X10e3 (4.0-10.5)
[2016-12-31 08:43] LABS: INR 1.2; PROTHROMBIN TIME (PATIENT) 13.1 SECONDS (10.0-11.7)
[2016-12-31 09:04] LABS: ALBUMIN SERUM 3.1 g/dL (3.5-5.0); BILIRUBIN,TOTAL 1.8 mg/dL (0.2-2.0); BUN/CREATININE RATIO 19.23; CALCIUM SERUM 8.6 mg/dL (8.4-10.2); CREATININE SERUM 2.6 mg/dL (0.6-1.4); GLOM FILT RATE Estimated 21.5 mL/min (>60); MAGNESIUM 2.4 mg/dL (1.6-3.0); POTASSIUM 4.1 mmol/L (3.5-5.1); PROTEIN TOTAL SERUM 6.5 g/dL (6.0-8.3)
[2017-01-02 07:41] LABS: HEMATOCRIT 32.2 % (38.0-50.0); HEMOGLOBIN 10.1 gm/dL (13.0-16.0); MEAN CELL VOLUME 85.8 FL (83-96); MEAN CORPUSCULAR HGB CONC 31.4 g/dL (30-36); MEAN PLATELET VOLUME 9.6 FL (6.5-11.5); RED BLOOD COUNT 3.75 X10e (3.90-5.60); RED CELL DISTRIBUTION WIDTH 21.3 % (11.0-15.5); WHITE BLOOD COUNT 6.9 X10e3 (4.0-10.5)
[2017-01-02 08:13] LABS: BUN/CREATININE RATIO 19.68; CALCIUM SERUM 9.1 mg/dL (8.4-10.2); CREATININE SERUM 3.2 mg/dL (0.6-1.4); GLOM FILT RATE Estimated 16.7 mL/min (>60); POTASSIUM 4.1 mmol/L (3.5-5.1)
[2017-01-02] MEDS ORDERED: ZAROXYLYN PO (12:08)
[2017-01-02] MEDS ORDERED: KCL PO (12:17)
[2017-02-25] MEDS ORDERED: DEMADEX PO (12:18)
[2017-02-25] MEDS ORDERED: COREG3.125 MG PO (12:18)
[2017-02-25] MEDS ORDERED: PACERONE100 MG PO (12:18)
[2017-02-25] MEDS ORDERED: ZOCOR PO (12:18)
[2017-02-25] MEDS ORDERED: BIMATOPROST2.5 ML OU (12:19)
[2017-02-25] MEDS ORDERED: ACID CONTROLLER20 MG PO (12:19)
[2017-02-25] MEDS ORDERED: ASPIRIN81 M2 PO (12:19)
[2017-02-25] MEDS ORDERED: LEVO-T112 MCG PO (12:19)
[2017-02-25] MEDS ORDERED: RENVELA800 MG PO (12:20)
[2017-02-25] MEDS ORDERED: ELIQUIS2.5 MG PO (12:20)
[2017-02-25] MEDS ORDERED: ALBUTEROL20 ml INH (12:20)
[2017-02-25] MEDS ORDERED: FERROUS GLUCON324 M1 PO (12:20)
[2017-02-25] MEDS ORDERED: FOLIC ACID1 MG PO (12:20)
[2017-02-25] MEDS ORDERED: FLONASE 0.05% N16 GM (12:20)
[2017-02-25] MEDS ORDERED: HUMALOG100 UNIT/2 (12:21)
[2017-02-25] MEDS ORDERED: MULTIVITAMINS1 EAC3 PO (12:21)
== END 2017-01-02 14:04 | disposition home or self-care (01) | DRG 291 ==
LOC: CED 01:45 → CEDOF 04:00 → C5B 04:00 → CEDOF 04:25 → CED 04:25 → C5B 18:46
PROVIDERS: Emergency Medicine; Family Medicine; Internal Medicine; Internal Medicine Cardiovascular Disease; Internal Medicine Nephrology; Nurse Practitioner
DX: I13.0 Hypertensive heart and chronic kidney disease with heart failure and stage 1 through stage 4 chronic kidney disease, or unspecified chronic kidney disease (principal); I50.43 Acute on chronic combined systolic (congestive) and diastolic (congestive) heart failure; K72.00 Acute and subacute hepatic failure without coma; N18.4 Chronic kidney disease, stage 4 (severe); N17.9 Acute kidney failure, unspecified; J96.10 Chronic respiratory failure, unspecified whether with hypoxia or hypercapnia; E11.22 Type 2 diabetes mellitus with diabetic chronic kidney disease; I25.2 Old myocardial infarction; E78.5 Hyperlipidemia, unspecified; D64.9 Anemia, unspecified; I25.5 Ischemic cardiomyopathy; I48.0 Paroxysmal atrial fibrillation; Z79.01 Long term (current) use of anticoagulants; I25.10 Atherosclerotic heart disease of native coronary artery without angina pectoris; Z95.0 Presence of cardiac pacemaker; J44.9 Chronic obstructive pulmonary disease, unspecified; E87.5 Hyperkalemia; Z96.653 Presence of artificial knee joint, bilateral; Z85.828 Personal history of other malignant neoplasm of skin; Z79.82 Long term (current) use of aspirin; Z82.49 Family history of ischemic heart disease and other diseases of the circulatory system; E87.6 Hypokalemia
CPT/HCPCS: 36415; 71010; 74176; 80048; 80053; 80076; 82553; 82947; 83735; 83880; 84132; 84484; 85025; 85027; 85610; 85730; 87040; 87070; 87205; 93005; 94640; 94760; 96374; 97163; 97165; 99291; G8978-GP; G8979-GP; G8980-GP; G8987-GO; G8988-GO; G8989-GO; J0885; J1250; J1815; J2270; J2543; J2916; J3370

== ENCOUNTER 2017-01-08 20:11 | Inpatient (IN) | payer MEDICARE, BC ==
--- NOTE | ~2017-01-08 | CO ---
Unit #: [id number] #: [id number] Patient: MECCA LOYOLA [id number] [address] [place], [place] [address] [id number] I MR#: [id number] NAME: MECCA LOYOLA ROOM: 549 Age: 86 Sex: M Admission Date: 01/08/2017 : 1930 Attending Physician: Tamara Mike M.D. Primary Care Physician: Blake Dhillon M.D. Consultation Date: 01/09/2017 CONSULTATION REPORT REASON FOR CONSULTATION Respiratory failure and pleural effusion. HISTORY OF PRESENT ILLNESS An 86-year-old gentleman, who I had seen in the past. He has severe cardiomyopathy and was at this institution and just discharged 5 days ago. He was followed by Nephrology and Cardiology, and ultimately was discharged after diuresis. Family states he became more short of breath the day prior to admission. He is asleep and really did not participate with the history. Three family members were there, who gave history. The states he did have some mucopurulent sputum, but no fever, wheezing, hemoptysis, or chest pain. In the hospital, he had saturations which were low in the emergency room, chest x-ray with a large pleural effusion. Please note that he has had worsening pleural effusions over the last several chest x-rays and CAT scans of the abdomen. CT scan of the abdomen last month revealed what looks like a right middle lobe pneumonia. He had compressive atelectasis of the right lower lobe and a moderate degree of pleural fluid. PAST MEDICAL HISTORY Remarkable for ischemic cardiomyopathy, chronic kidney disease, mitral regurgitation, pulmonary hypertension, paroxysmal atrial fibrillation, diabetes, hemochromatosis, left eye histoplasmosis. MEDICATIONS At home, according to the EHR; amiodarone, Eliquis, Coreg, Zaroxolyn, Demadex, Zocor, variety of eye drops, Pepcid, aspirin, potassium, Synthroid, Imdur, and Januvia. ALLERGIES No known medical allergies. FAMILY HISTORY Hemochromatosis. No definite familial lung disease. SOCIAL HISTORY Quit smoking 40 years ago. Lives with his . REVIEW OF SYSTEMS Basically unobtainable. The patient is asleep and really did not participate with the interview process. PHYSICAL EXAMINATION GENERAL: Reveals a patient who is in no acute distress on low-flow Unit #: [id number] #: [id number] Patient: MECCA LOYOLA oxygen. VITAL SIGNS: He is afebrile. Pulse 62, respiratory rate 16, blood pressure is 118/59, height 5 feet and 7 inches, weight 178 pounds, BMI is 27. HEENT: Pupils, difficult to evaluate. He did not participate with exam. Head appears to be atraumatic. Mucous membranes moist. He has marked elevation in his jugular venous pressures. CHEST: Equal breath sounds anteriorly. Decreased breath sounds on right side. No wheeze or stridor. CARDIAC: Reveals regular rate and rhythm. No murmur, rub, or gallop noted. ABDOMEN: Soft and nontender. No hepatomegaly or rebound. EXTREMITIES: Reveal some edema. No clubbing or cyanosis. SKIN: A lot of bruising in a nondiagnostic pattern. No acute rash. NEUROLOGIC: He did not participate with a full neurologic exam. DIAGNOSTIC STUDIES LABORATORY RESULTS: BUN is 100, creatinine is 6.9, estimated GFR 6.6, sodium 125, total bilirubin is 3.7. BNP is 2008. INR 2.0. Cardiac enzymes negative. White blood cell count 13.3, hemoglobin 11.6, platelet count 140. No blood cultures performed. Sputum 2 weeks ago, normal froylan. IMAGING STUDIES: Chest x-ray, large pleural effusion on the right; possible trace on the left. Cardiomegaly. Rhythm strip; sinus. IMPRESSION 1. Large pleural effusion, most likely secondary to severe cardiomyopathy. He did have a right middle lobe infiltrate on CT scan of the abdomen 2 weeks ago, which was consistent with pneumonia. He also had a small pulmonary nodule in the right middle lobe last year and I doubt that, that is contributory. 2. Congestive heart failure. 3. Paroxysmal atrial fibrillation. 4. Respiratory failure, hypoxemic, acute. 5. Mucopurulent sputum, bronchitis, possible pneumonia. 6. Chronic kidney disease, to get dialysis. 7. Remote pulmonary nodule. PLAN Agree with thoracentesis. I will order appropriate labs. We will try to obtain sputum, check procalcitonin level, and add Zosyn. Certainly, if his pleural effusion turns out to be transudative, he could easily transition to oral antibiotics for bronchitis and/or stop antibiotic therapy altogether. Agree with diuresis/hemodialysis. Consider a followup CT scan of the chest after his acute problems have recovered. Thank you very much for allowing me to participate in the care of Mr. Loyola. Dictated by... Jaxson Singh M.D. ROBERT/tessa TD: 01/10/2017 07:21 Unit #: [id number] #: [id number] Patient: MECCA LOYOLA JOB #: [id number] CC: Leigh Chávez M.D. CONSULTATION REPORT Page 1 of 1 X Jaxson Singh MD CONSULTATION REPORT
--- NOTE | ~2017-01-08 | DS ---
Unit #: [id number] #: [id number] Patient: MECCA LOYOLA [id number] [address] [address] [id number] I MR#: [id number] NAME: MECCA LOYOLA ROOM: 549 Age: 86 Sex: M Admission Date: 01/08/2017 : 1930 Discharge Date: Attending Physician: Tamara Mike M.D. Primary Care Physician: Blake Dhillon M.D. DISCHARGE SUMMARY ADDENDUM Please see discharge summary dictated January 14, 2017, for details of hospital course. After review by physical and occupational therapy and evaluation of patient, recommendation was made for rehab at time of discharge. Therefore, appropriate arrangements will be made for the patient to be transferred to a rehab facility later this afternoon. Medications as well as hospital course remain unchanged. Dictated by... Leigh Ramsey/bella TD: 01/15/2017 11:19 JOB #: [id number] DISCHARGE SUMMARY Page 1 of 1 X Tamara Mike MD X DISCHARGE SUMMARY
--- NOTE | ~2017-01-08 | HP ---
Unit #: [id number] #: [id number] Patient: MECCA LOYOLA [id number] [address] [place], [place] [address] [id number] I MR#: [id number] NAME: MECCA LOYOLA ROOM: 549 Age: 86 Sex: M Admission Date: 01/08/2017 : 1930 Attending Physician: Jacque Temple M.D. Primary Care Physician: Blake Dhillon M.D. HISTORY AND PHYSICAL CHIEF COMPLAINT Fluid overload with worsening kidney disease. HISTORY This 86-year-old male with ischemic cardiomyopathy, stage 4 kidney disease, AODM, and anticoagulated for arrhythmia is admitted for fluid overload. The patient was most recently admitted to this facility 12/27 through 01/03/2017 for acute on chronic systolic congestive heart failure. He was placed on IV diureses and dobutamine drip. Was seen in consultation by cardiology and nephrology. Has not felt well for the past few days with poor p.o. intake. Two days ago, developed increasing shortness of breath with decreasing urinary output despite diuretics. He presents back to this emergency department with acute on chronic kidney failure. His current creatinine is 6.8, up from 3.2. Chest x-ray shows worsening congestive heart failure. A catheter was placed and patient had very little urinary output. Patient denies chest pain with the above. Of note, he is anticoagulated and takes Eliquis along with aspirin. Does have chronic ecchymosis related to the Eliquis and aspirin. INR is 2. Patient has a right arm fistula, which has not yet matured, has six more weeks. A call was made to nephrology who asked that an attempt be made to place a Shiley catheter tonight with dialysis initiation. PAST MEDICAL HISTORY 1. CAD with previous anterolateral PR 2000 status post angioplasty and stent to the LAD, circumflex artery, and RCA. Last echo, 03/2015, revealed an ejection fraction of 30% to 35% with [id number] MR, TR, AR, and pulmonary hypertension. Patient has a history of acute on chronic systolic congestive heart failure. 2. Paroxysmal atrial fibrillation on chronic anticoagulation status post permanent pacemaker insertion and on amiodarone. 3. AODM. 4. Stage 4 chronic kidney disease. Previous creatinine at the time of discharge 5 days ago was 3.2. Today, it is 6.8. 5. Amiodarone induced hypothyroidism. 6. History of hemochromatosis requiring previous phlebotomy. 7. Left eye histoplasmosis. 8. Basal cell cancer removed. 9. Left rotator cuff repair. 10. Bilateral total knee replacements and revision of the left knee. ALLERGIES No known drug allergies. Unit #: [id number] #: [id number] Patient: MECCA LOYOLA HOME MEDICATIONS 1. Amiodarone 200 mg daily. 2. Flonase nasal spray as needed. 3. Eliquis 2.5 mg b.i.d. 4. Coreg 3.125 mg b.i.d. 5. Zaroxolyn 5 mg Mondays, Wednesdays, and Fridays. 6. Demadex 100 mg b.i.d. 7. Zocor 40 mg q.h.s. 8. Iron sulfate 324 mg daily. 9. Bimatoprost 1 drop both eyes q.h.s. 10. Pepcid 10 mg b.i.d. 11. Aspirin 81 mg daily. 12. Potassium 20 mEq b.i.d. 13. Synthroid 0.112 mg daily. 14. Imdur 30 mg daily. 15. Nitroglycerin p.r.n. 16. Januvia 100 mg q.a.m. FAMILY HISTORY Hemochromatosis and CAD. SOCIAL HISTORY The patient lives with his . Remote history of tobacco use. Stopped smoking about 50 years ago. He does not drink alcohol. REVIEW OF SYSTEMS Difficult to obtain and patient is hard of hearing and a poor historian. Most of the history was obtained by family at bedside. PHYSICAL EXAMINATION GENERAL APPEARANCE: Chronically ill appearing, tanned appearing, 86-year-old male currently in no acute distress. VITAL SIGNS: Temperature 97.9, pulse 72, respirations 21, blood pressure 99/59, and O2 saturation was 89% on room air. HEENT: Eyes: PERRLA. Extraocular muscles are intact. Pharynx is benign. NECK: Supple without adenopathy or thyromegaly. Elevated JVD. CHEST: With diminished breath sounds in the right base. CARDIAC: Normal S1 and S2 with soft systolic murmur best heard at the upper sternal border. ABDOMEN: Bowels sounds are present. Hepatomegaly noted. Nontender. No masses. EXTREMITIES: With mild edema. Pedal pulses are diminished. SKIN: Reveals multiple ecchymoses over the skin from current anticoagulation. NEUROLOGIC: Patient is awake and alert. He is hard of hearing. His cranial nerves are intact otherwise. He has equal strength throughout, but is very weak on exam and needs help just to roll over. DIAGNOSTIC STUDIES ADMISSION LABS: Hematocrit is 40.2, white blood count is 14.3, normal platelet count, and 7 bands noted. SMA-12: Glucose is 300; BUN 93 and creatinine 6.8, up from a BUN of 63 and creatinine of 3.2 five days ago; sodium 123; potassium 5.8; chloride is 84; CO2 is 17; bilirubin is 3.7, also increased; and ALT 175. BNP is 2000. Cardiac markers are negative. IMAGING: Chest x-ray: Increased congestive heart failure and right-sided Unit #: [id number] #: [id number] Patient: MECCA LOYOLA effusion with atelectasis versus infiltrate, right greater than left. CARDIOVASCULAR: EKG: AV dual paced rhythm, rate 68. ASSESSMENT 1. Acute on chronic kidney disease. Patient needs dialysis. Has a maturing right arm fistula, which has not yet matured. 2. Worsening fluid overload despite diuretics. 3. Hypokalemia and hyponatremia related to above. 4. Ischemic cardiomyopathy, ejection fraction 30% to 35%, with history of paroxysmal atrial fibrillation, status post permanent pacemaker, anticoagulated. 5. Amiodarone induced hypothyroidism. 6. History of hemochromatosis. 7. Congestive liver disease. 8. Adult-onset diabetes mellitus. PLANS 1. Plans are for hemodialysis initiation. Nephrology was consulted and gave orders. ER doctor is talking to the patient and the family about risks of placing a dialysis catheter tonight while anticoagulated. 2. Admit to the intensive care unit tonight. His blood pressures are tenuous. Will ask Dr. Singh to see in consultation. He has seen the patient in the past. 3. Cardiology consultation. 4. Repeat all labs in the morning including cardiac enzymes. 5. Sliding scale insulin. 6. Discontinue potassium. 7. Long-term prognosis is poor. 8. Patient is a full code. Dictated by Jacque Temple M.D. EYAD/la TD: 01/09/2017 05:08 JOB #: [id number] HISTORY AND PHYSICAL Page 1 of 1 X Jacque Temple MD HISTORY AND PHYSICAL
--- NOTE | ~2017-01-08 | CR72 ---
[facility] A Service of [facility] & [facility] RADIOLOGY TEXT RESULTS PATIENT: EMCCA LOYOLA LOCATION: B 549 : 31 UNIT #: [id number] AGE: [address]: Tamara Mike MD SEX: M ORDER DR: [id number] [facility] [address] [place], [place] [address] [id number] I MR#: [id number] Acc #: [id number] NAME: MECCA LOYOLA : 1930 SEX: M STUDY DATE/TIME: 01/11/2017 6:04 UNIT: [facility] ROOM: [facility] STUDY DESCRIPTION: CR Chest Single View Portable Attending Physician: Tamara Mike M.D. Ordering Physician: Tamara Mike M.D. Primary Care Physician: Blake Dhillon M.D. MEDICAL IMAGING REPORT This report is preliminary unless electronic signature is present EXAM Chest x-ray portable HISTORY Fluid overload, respiratory failure starting on 01/08/2017. Patient also has a history of shortness of breath and atrial fibrillation. Patient quit smoking. COMMENT Single frontal portable view of the chest timed 06:04 on 01/11/2017 compared to 01/09/2017. The cardiac silhouette is moderately enlarged and there is a left-sided pacer/defibrillator. There is a right IJ-approach catheter terminating at the right atrium level. This is not changed. There is no pneumothorax. There is, what is probably, moderate right pleural effusion with associated right base airspace disease and this is worse on comparison to 01/09/2017. Vascular congestion and interstitial edema, otherwise, essentially unchanged. IMPRESSION 1. Some increase in right pleural fluid and airspace disease right lung base on comparison to 01/09/2017. No change in moderate cardiac silhouette enlargement, vascular congestion or mild interstitial edema. Tubes and lines not changed. Dictated by... Dot Sears M.D. THIS IS AN ELECTRONICALLY VERIFIED REPORT Dot Sears M.D. at 01/12/2017 4:50 PM SAC/psc [facility]. [facility] A Service of [facility] & [facility] RADIOLOGY TEXT RESULTS PATIENT: MECCA LOYOLA LOCATION: C5B 549-01 : [birth year] UNIT #: [id number] AGE: [address]: Tamara Mike MD SEX: M ORDER DR: TD: 01/11/2017 22:34 JOB #: [id number] MEDICAL IMAGING REPORT Page 1 of 1 COPY
--- NOTE | ~2017-01-08 | EKG ---
PATIENT: MECCA LOYOLA UNIT #: [id number] Ventricular Rate: 68 BPM Atrial Rate: 66 BPM P-R Interval: 174 ms QRS Duration: 182 ms Q-T Interval: 638 ms QTC Calculation(Bezet): 678 ms P [place]: 119 degrees Calculated R [place]: -89 degrees Calculated T [place]: 89 degrees Diagnosis Line: AV dual-paced rhythm Diagnosis Line: Abnormal ECG Diagnosis Line: No previous ECGs available Diagnosis Line: Confirmed by CRUZ TIRADO MD ([id number]) on 01/09/2017 Diagnosis Line: 4:53:05 PM INTERPRETING MD: CANDIDA BARRIOS
--- NOTE | ~2017-01-08 | XA203 ---
[facility] A Service of [facility] & [facility] RADIOLOGY TEXT RESULTS PATIENT: MECCA LOYOLA LOCATION: [facility] : 31 UNIT #: [id number] AGE: [address]: Tamara Mike MD SEX: M ORDER DR: [id number] [facility] [address] [place], [place] [address] [id number] I MR#: [id number] Acc #: [id number] NAME: MECCA LOYOLA : 1930 SEX: M STUDY DATE/TIME: 01/09/2017 13:50 UNIT: [facility] ROOM: [facility] STUDY DESCRIPTION: XA Thoracentesis Attending Physician: Tamara Mike M.D. Ordering Physician: Felipe Jaeger M.D. Primary Care Physician: Blake Dhillon M.D. MEDICAL IMAGING REPORT This report is preliminary unless electronic signature is present EXAM Thoracentesis with ultrasound guidance HISTORY Right pleural effusion of uncertain etiology. TECHNIQUE The procedure was explained to the patient including risks, benefits and complications. Informed consent was obtained and a formal time-out procedure was utilized. Ultrasound was used to amaris the pocket of fluid prior to the procedure. The patient was rolled up into a left lateral decubitus position. The skin was prepped and draped in usual sterile fashion and anesthetized with 1% lidocaine. A sheath needle was placed into the fluid and a total 1.5 L of fluid was withdrawn. Some of the fluid was sent for laboratory analysis requested by the ordering service. The patient tolerated the procedure well. A chest x-ray will be obtained to evaluate for pneumothorax with results reported separately. IMPRESSION Technically successful thoracentesis on the right with 1.5 L of fluid obtained. Laboratory results pending. Dictated by... Adrian Arenas M.D. THIS IS AN ELECTRONICALLY VERIFIED REPORT Adrian Arenas M.D. at 01/10/2017 11:30 AM SANJAY/michael TD: 01/10/2017 05:39 JOB #: [id number] MEDICAL IMAGING REPORT [facility] A Service of [facility] & [facility] RADIOLOGY TEXT RESULTS PATIENT: MECCA LOYOLA LOCATION: C5B 549-01 : 31 UNIT #: [id number] AGE: [address]: Tamara Mike MD SEX: M ORDER DR: Page 1 of 1 COPY
--- NOTE | ~2017-01-08 | CR71 ---
[facility] A Service of [facility] & [facility] RADIOLOGY TEXT RESULTS PATIENT: MECCA LOYOLA LOCATION: C5B 549-01 : 31 UNIT #: [id number] AGE: [address]: Tamara Mike MD SEX: M ORDER DR: [id number] [facility] [address] [place], [place] [address] [id number] I MR#: [id number] Acc #: [id number] NAME: MECCA LOYOLA : 1930 SEX: M STUDY DATE/TIME: 01/12/2017 17:09 UNIT: [facility] ROOM: [facility] STUDY DESCRIPTION: CR Chest Single View Attending Physician: Tamara Mike M.D. Ordering Physician: Malik Han M.D. Primary Care Physician: Blake Dhillon M.D. MEDICAL IMAGING REPORT This report is preliminary unless electronic signature is present EXAM Portable chest x-ray 01/12/2017 HISTORY Postop line placed PACUBA. Short of air, weakness, starting dialysis, right tunneled catheter placement. FINDINGS AP lordotic view of chest presented. Comparison 01/11/2017. Cardiac pacemaker unchanged. Interval removal of right internal jugular central venous catheter and placement of a right-sided tunneled central venous catheter through right internal jugular approach. Tip terminates in upper right atrium. Stable cardiac enlargement. Pulmonary vascular congestion. Pulmonary vasculature more pronounced than on prior study and slightly less distinct with increased fine linear interstitial markings in the right midlung zone and the left lower lung zone. Small right pleural effusion stable to slightly increased in volume. Patchy densities in visualized bilateral lung bases as well. Appearance is consistent with mild to mild/moderate pulmonary edema with interstitial airspace and right pleural space components. There is no pneumothorax. Dictated by... Mor Kennedy M.D. THIS IS AN ELECTRONICALLY VERIFIED REPORT Mor Kennedy M.D. at 01/13/2017 6:25 PM WILLIAMS/mili TD: 01/13/2017 07:18 JOB #: [id number] MEDICAL IMAGING REPORT Page 1 of 1 COPY
--- NOTE | ~2017-01-08 | XA75 ---
[facility] A Service of [facility] & [facility] RADIOLOGY TEXT RESULTS PATIENT: MECCA LOYOLA LOCATION: B : 31 UNIT #: [id number] AGE: [address]: Tamara Mike MD SEX: M ORDER DR: [id number] [facility] [address] [place], [place] [address] [id number] I MR#: [id number] Acc #: [id number] NAME: MECCA LOYOLA : 1930 SEX: M STUDY DATE/TIME: 01/09/2017 13:50 UNIT: C5B ROOM: [facility] STUDY DESCRIPTION: XA CVC Non-Tunnel Attending Physician: Tamara Mike M.D. Ordering Physician: Harry Rojas Jr., M.D. Primary Care Physician: Blake Dhillon M.D. MEDICAL IMAGING REPORT This report is preliminary unless electronic signature is present EXAM Shiley catheter placement with ultrasound and fluoroscopic guidance HISTORY Shiley catheter required for dialysis. TECHNIQUE Procedure was explained to the patient including risks, benefits, and complications. Informed consent was obtained and a formal time-out procedure was utilized. Full barrier sterile technique was employed via standard protocol including prepping of the skin with ChloraPrep, long drapes, cap, gown, mask, gloves, shoe covers and sterile ultrasound probe cover with sterile gel. Using full barrier sterile technique and following local anesthesia with 1% Xylocaine, the right internal jugular vein was identified with ultrasound and punctured under ultrasound guidance. Ultrasound was used to confirm vessel patency which was confirmed and permanent ultrasound images were recorded. An 0.018 guidewire was passed into the right atrium. A micropuncture set was used. An 0.035 guidewire was passed through the micropuncture sheath and the tract was dilated. A Shiley catheter double-lumen was then passed over the guidewire with the tip positioned in the upper right atrium. It was flushed with Hep-Lock solution. It was sutured in place with 2 2-0 silk sutures and a sterile dressing was applied. 1 spot film was obtained with fluoroscopy time of 0.1 minutes and a dose of 2 mGy. IMPRESSION Successful placement of a Shiley catheter via the right internal jugular vein with ultrasound and fluoroscopic guidance. The tip is in good position in the upper right atrium. Dictated by... [facility] A Service of [facility] RADIOLOGY TEXT RESULTS PATIENT: MECCA LOYOLA LOCATION: [facility] 549- : 31 UNIT #: [id number] AGE: [address]: Tamara Mike MD SEX: M ORDER DR: Adrian Arenas M.D. THIS IS AN ELECTRONICALLY VERIFIED REPORT Adrian Arenas M.D. at 01/10/2017 11:30 AM SANJAY/michael TD: 01/10/2017 05:14 JOB #: [id number] MEDICAL IMAGING REPORT Page 1 of 1 COPY
--- NOTE | ~2017-01-08 | CR71 ---
[facility] A Service of [facility] RADIOLOGY TEXT RESULTS PATIENT: MECCA LOYOLA LOCATION: [facility] : 31 UNIT #: [id number] AGE: [address]: Tamara Mike MD SEX: M ORDER DR: [id number] [facility] [address] [place], [place] [address] [id number] I MR#: [id number] Acc #: [id number] NAME: MECCA LOYOLA : 1930 SEX: M STUDY DATE/TIME: 01/12/2017 16:24 UNIT: [facility] ROOM: [facility] STUDY DESCRIPTION: CR Chest Single View Attending Physician: Tamara Mike M.D. Ordering Physician: Malik Han M.D. Primary Care Physician: Blake Dhillon M.D. MEDICAL IMAGING REPORT This report is preliminary unless electronic signature is present EXAM C-arm fluoroscopy with single permanent image of the chest 01/12/17 HISTORY Tunneled catheter insertion in OR. Fluid overload and respiratory failure starting on 01/08/17. Short of breath and atrial fibrillation. FINDINGS C-arm fluoroscopy was provided for use in the operating room. A single spot film radiograph of the right hemithorax was obtained documenting placement of dual-lumen catheter from the right internal jugular approach with the tip in the right atrium. 14 seconds of fluoroscopy time was utilized. Correlation with standard plain film radiograph of the chest is recommended to exclude pneumothorax. Dictated by... Hill Martinez M.D. THIS IS AN ELECTRONICALLY VERIFIED REPORT Hill Martinez M.D. at 01/14/2017 7:27 AM KRT/mili TD: 01/13/2017 12:46 JOB #: [id number] MEDICAL IMAGING REPORT Page 1 of 1 COPY
--- NOTE | ~2017-01-08 | OR ---
Unit #: [id number] #: [id number] Patient: MECCA LOYOLA [id number] [facility] [address] [place], [place] [address] [id number] Teodora MR#: [id number] NAME: MECCA LOYOLA ROOM: 549 Date of Procedure: Admission Date: 01/08/2017 Surgeon: Malik Han M.D. : 1930 Attending Physician: Tamara Mike M.D. Primary Care Physician: Blake Dhillon M.D. PROCEDURE OPERATIVE NOTE OPERATION Tunneled dialysis catheter placement. INDICATIONS This is an 86-year-old gentleman, who has chronic kidney disease, who is status post right proximal radiocephalic AV fistula by Dr. Espinal at [facility] done several weeks ago. Unfortunately, he has now progressed to acute on chronic kidney disease, now requiring more urgent dialysis. His fistula is not quite ready for access yet, and we were asked by his information security consultant to place a tunneled dialysis catheter. I talked to the patient and his family member about the risks and benefits of the procedure. The risks include, but are not limited to, bleeding, injury to the blood vessels, line malfunction, line thrombosis, line infection, and pneumothorax requiring thoracostomy. The benefit of the procedure is for him to receive dialysis. He expressed understanding, and elected to proceed with the operation. PREOPERATIVE DIAGNOSIS End-stage renal disease. POSTOPERATIVE DIAGNOSIS End-stage renal disease. SURGEON Malik Han M.D. ELL TUTOR None. PROCEDURE NARRATIVE After informed consent was obtained, the patient was brought to the operating room table and placed in a supine position. The patient's right neck and chest, as well as the current indwelling Trialysis catheter were prepped and draped into the sterile fashion. At this point, a time-out procedure was performed. I opened up the arterial port, and threaded a wire down the catheter, and into the IVC, under fluoroscopy. I then removed the catheter over the wire, and held manual pressure over the internal jugular vein. I then advanced the peel-away sheath catheter over the wire. I removed the dilator and the wire. I then had selected a 20 cm tip to cuff catheter, which was inserted into the peel-away catheter, and the sheath was then removed. I then measured out the distance of the tip of the catheter in the right atrium, and the cuff on the chest. I marked Unit #: [id number] #: [id number] Patient: MECCA LOYOLA it on the skin. I then infiltrated 1% lidocaine into the chest, and along the proposed tunnel tract. The patient did have a skin tear, which was rather long in length and horizontal, and there was no way for me to route the catheter around it. Ultimately, I did go a bit lateral to the skin tear, I made a skin incision with a #11 blade, and then tunneled the tract, I then dilated the tract. I then pulled the catheter through the tunnel tract, and left the tip of the catheter in the proximal to mid right atrium. I then inspected the apex of the catheter, and there was no kinking seen on fluoroscopy. I then cut the catheter and attached the two ports. Both ports aspirated and flushed easily. Heparinized saline was instilled. I then used concentrated heparin into each port. The catheter was then sutured into place with 3-0 nylons. The neck incision was closed with 4-0 Monocryl, and covered with Dermabond. The dressing was a bit challenging. I was able to place a 4 x 4 gauze over the skin tear, and placed a Tegaderm dressing. I then placed a separate Tegaderm dressing with a Biopatch over the catheter, overlying the existing skin tear dressing. At the end of the case, all counts were correct and I was present for the entire duration of the procedure. EBL 20 mL. FINDINGS Tip of the catheter in the proximal right atrium. SPECIMEN None. COMPLICATIONS None. Dictated by... Malik Han M.D. Byron TD: 01/13/2017 06:23 JOB #: [id number] PROCEDURE OPERATIVE NOTE Page 1 of 1 X X PROCEDURE OPERATIVE NOTE
--- NOTE | ~2017-01-08 | DS ---
Unit #: [id number] #: [id number] Patient: MECCA LOYOLA [id number] [place], [place] [address] [id number] I MR#: [id number] NAME: MECCA LOYOLA ROOM: 549 Age: 86 Sex: M Admission Date: 01/08/2017 : 1930 Discharge Date: 01/14/2017 Attending Physician: Tamara Mike M.D. Primary Care Physician: Blake Dhillon M.D. DISCHARGE SUMMARY REASON FOR ADMISSION 1. Fluid overload. 2. Worsening kidney disease. HISTORY OF PRESENT ILLNESS/HOSPITAL COURSE The patient is an 86-year-old male with a history of ischemic cardiomyopathy, decreased ejection fraction, I believe approximately 30%, who presented secondary to fluid overload. Initial workup in the emergency room revealed a creatinine of 6.8, up from his routine baseline of 3.2. This subsequently prompted admission and placement on telemetry floor. In regard to his cardiac status, consultation was placed to Dr. Jaeger and associates for evaluation, as the patient has been well known to Dr. Jaeger from previous admissions. He was initially placed on appropriate cardiac medications. We also placed consultation to Dr. Latham and akira. The patient had tunnelled catheter placement by vascular services and was initiated on hemodialysis secondary to fluid management. It was also noted that on initial chest x-ray the patient did have a large raised pleural effusion. He underwent thoracentesis, transudative in nature, likely secondary to fluid overload. Respiratory issues as well as pleural effusion prompted pulmonary consultation with Dr. Singh. He was otherwise stable from their standpoint. At this point in time pulmonary services and renal, as well as cardiology services have all signed off, stating the patient is stable for discharge home. It should be noted he does have a longstanding history of thrombocytopenia, which has been caused by Eliquis in the past. We will resume his Eliquis at the present time secondary to his longstanding history of atrial fibrillation, with routine laboratory assessment, including a CBC as well as close outpatient monitoring. At this point in time the patient is clinically stable, although his long-term prognosis at best is guarded. His chance of readmission is high. In the past, discussions have been had with the patient's family in regard to his prognosis and consideration for possible Hospice. However, they have refused. Physical therapy and occupational therapy services will evaluate the patient later this afternoon for appropriate home health. The patient will be discharged with outpatient hemodialysis once that is set up. FINAL DISCHARGE DIAGNOSES Unit #: [id number] #: [id number] Patient: MECCA LOYOLA 1. Fpbbw-fh-zvqspqe systolic heart failure. Ejection fraction approximately 30%. 2. Coronary artery disease. Prior history of myocardial infarctions. 3. Recurrent hospital admissions secondary to fluid overload. 4. 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 5. Prior history of paroxysmal atrial fibrillation on chronic anticoagulation with Eliquis. 6. Prior history of thrombocytopenia, likely induced by Eliquis. 7. Diabetes type 2, on currently no medications. 8. Amiodarone induced hypothyroidism. 9. 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 10. Chronic deconditioning. 11. Chronic upper extremity bruising. FINAL DISCHARGE MEDICATIONS 1. Amiodarone 200 mg p.o. daily. 2. Flonase 1 squirt each nostril daily. 3. Eliquis 2.5 mg p.o. b.i.d. 4. Coreg 3.125 mg p.o. b.i.d. 5. Demadex 100 mg p.o. b.i.d. 6. Zocor 40 mg p.o. at nighttime. 7. Ferrous gluconate 324 mg p.o. daily. 8. Pepcid 10 mg p.o. b.i.d. 9. Synthroid 112 mcg p.o. daily. 10. Sublingual nitroglycerin as directed. 11. Folic acid 1 mg p.o. daily. DISCHARGE CONDITION Stable. DISPOSITION Home. FOLLOWUP 1. Follow up with Dr. Jaeger as an outpatient from cardiology services. 2. Home health to follow at time of discharge. PROGNOSIS Long-term prognosis guarded at best. Chance of readmission significantly elevated. Dictated by... Leigh Ramsey TD: 01/15/2017 08:57 JOB #: [id number] Unit #: [id number] #: [id number] Patient: NIRMECCAKISHORE TREADWELL DISCHARGE SUMMARY Page 1 of 1 X Tamara Mike MD X DISCHARGE SUMMARY
--- NOTE | ~2017-01-08 | CR72 ---
[facility] A Service of [facility] RADIOLOGY TEXT RESULTS PATIENT: MECCA LOYOLA LOCATION: [facility] 549 : 31 UNIT #: [id number] AGE: [address]: Tamara Mike MD SEX: M ORDER DR: [id number] [facility] [address] [place], [place] [address] [id number] I MR#: [id number] Acc #: [id number] NAME: MECCA LOYOLA : 1930 SEX: M STUDY DATE/TIME: 01/08/2017 21:21 UNIT: [facility] ROOM: [facility] STUDY DESCRIPTION: CR Chest Single View Portable Attending Physician: Jacque Temple M.D. Ordering Physician: Rusty Beth M.D. Primary Care Physician: Blake Dhillon M.D. MEDICAL IMAGING REPORT This report is preliminary unless electronic signature is present EXAM Frontal chest, 01/08/2017 INDICATION Short of air for a day. TECHNIQUE Frontal chest compared with 12/27/2016 FINDINGS There is cardiomegaly and ectasia of the thoracic aorta which is atherosclerotic. Left-sided dual-lead pacemaker unchanged. Lung volumes are low. There has been interval worsening of vascular congestion and interstitial edema. Right-sided effusion and probable compressive atelectasis or pneumonia in the right lung base. No pneumothorax. IMPRESSION 1. Cardiomegaly with worsening vascular congestion and interstitial edema. 2. Right sided effusion with compressive atelectasis or pneumonia in the right lung base. 3. There is more confluent atelectasis, edema or less likely infiltrate in the left lung base. Dictated by... Óscar Calabrese M.D. THIS IS AN ELECTRONICALLY VERIFIED REPORT Óscar Calabrese M.D. at 01/09/2017 11:28 AM Talia TD: 01/09/2017 04:07 [facility] A Service of [facility] RADIOLOGY TEXT RESULTS PATIENT: MECCA LOYOLA LOCATION: C5 549-01 : 31 UNIT #: [id number] AGE: [address]: Tamara Mike MD SEX: M ORDER DR: JOB #: [id number] MEDICAL IMAGING REPORT Page 1 of 1 COPY
--- NOTE | ~2017-01-08 | CR72 ---
[facility] A Service of [facility] RADIOLOGY TEXT RESULTS PATIENT: MECCA LOYOLA LOCATION: [facility] 549 : 31 UNIT #: [id number] AGE: [address]: Tamara Mike MD SEX: M ORDER DR: [id number] [facility] [address] [place], [place] [address] [id number] I MR#: [id number] Acc #: [id number] NAME: MECCA LOYOLA : 1930 SEX: M STUDY DATE/TIME: 01/09/2017 15:58 UNIT: [facility] ROOM: [facility] STUDY DESCRIPTION: CR Chest Single View Portable Attending Physician: Tamara Mike M.D. Ordering Physician: Adrian Arenas M.D. Primary Care Physician: Blake Dhillon M.D. MEDICAL IMAGING REPORT This report is preliminary unless electronic signature is present EXAM Portable chest HISTORY Post thoracentesis on the right. Evaluate for pneumothorax. TECHNIQUE Single AP view chest was obtained. FINDINGS A single view chest shows improved aeration at the right lung base with no evidence of pneumothorax. Dictated by... Adrian Arenas M.D. THIS IS AN ELECTRONICALLY VERIFIED REPORT Adrian Arenas M.D. at 01/10/2017 11:30 AM SANJAY/tete TD: 01/10/2017 09:11 JOB #: [id number] MEDICAL IMAGING REPORT Page 1 of 1 COPY
--- NOTE | ~2017-01-08 | CO ---
Unit #: [id number] #: [id number] Patient: MECCA LOYOLA [id number] [facility] [address] [place], [place] [address] [id number] I MR#: [id number] NAME: MECCA LOYOLA ROOM: 549 Age: 86 Sex: M Admission Date: 01/08/2017 : 1930 Attending Physician: Tamara Mike M.D. Primary Care Physician: Blake Dhillon M.D. Consultation Date: 01/09/2017 CONSULTATION REPORT REASON FOR CONSULTATION Tunneled dialysis catheter placement. HISTORY OF PRESENT ILLNESS This is an 86-year-old male, who is admitted to [facility] with renal failure. He has never been on hemodialysis before. He sees Dr. Espinal and has previously had a right radiocephalic fistula. Today, that fistula was found to be thrombosed and around the first of the month of 11/2016, he underwent conversion of the right radiocephalic fistula to a right brachiocephalic fistula. We actually saw Mr. West in consultation on 12/30/2016 at his previous hospital admission here. We were asked to remove scooter from his surgical incision at that time, which we did. He has since not had a chance to follow up with Dr. Espinal and is now in need of initiation of hemodialysis. He underwent Shiley catheter placement earlier today. We have now been asked to see him in consultation for a tunneled dialysis catheter placement in order to use for longer-term dialysis access while his fistula fully matures. PAST MEDICAL HISTORY 1. Chronic heart failure. 2. Ischemic cardiomyopathy. 3. Chronic kidney disease. 4. Paroxysmal atrial fibrillation with anticoagulation on Eliquis. 5. Coronary artery disease. 6. Prior cardiac stent placement. 7. Sick sinus syndrome. 8. Pacemaker placement. 9. Anemia. 10. Hypertension. 11. Hyperlipidemia. 12. Hypothyroidism. 13. Thrombocytopenia. PAST SURGICAL HISTORY 1. Right radiocephalic AV fistula. 2. AV fistula in 11/2016. 3. Rotator cuff repair. 4. Pacemaker placement. 5. Bilateral total knee replacement. 6. Basal cell carcinoma. SOCIAL HISTORY Unit #: [id number] #: [id number] Patient: MECCA LOYOLA The patient is and resides at home with his spouse. He quit smoking many years ago. He denies any alcohol or illegal drug use. ALLERGIES No known drug allergies. MEDICATIONS Famotidine 10 mg b.i.d.; 81 mg of aspirin daily; Synthroid 112 mcg daily; isosorbide mononitrate 30 mg p.o. daily; Flonase 1 spray b.i.d.; Nitrostat 0.4 mg as needed; Eliquis 2.5 mg p.o. b.i.d.; ferrous gluconate 325 mg p.o. daily; p.o. Mondays, Wednesdays, and Fridays; Klor-Con 20 mEq p.o. b.i.d.; amiodarone 200 mg p.o. daily; carvedilol 3.125 mg p.o. b.i.d.; torsemide 100 mg p.o. b.i.d.; simvastatin 40 mg p.o. at bedtime; and bimatoprost one drop OU at bedtime. REVIEW OF SYSTEMS Unable to be obtained as the patient is drowsy from recent medication for Shiley placement. In discussion with family, he has a history of shortness of breath, easy bruising, and frequent skin tears. PHYSICAL EXAMINATION VITAL SIGNS: Temperature 97.5, heart rate 86, and blood pressure . GENERAL APPEARANCE: This is a well-developed, well-nourished male, in no acute distress. Mildly sedated from recent Shiley placement. He has profuse generalized bruising of the skin. HEENT: Normocephalic. Pupils are equal, round, and reactive to light, but sluggish. NECK: Right neck Shiley catheter in place. CHEST: Skin tear covered with Mepilex of the right chest. Pacemaker palpable on the left chest. CARDIAC: Regular rate and rhythm at this time. No murmurs noted. LUNGS: Clear to auscultation with diminished bilateral bases. The patient is on 2 L nasal cannula. ABDOMEN: Positive bowel sounds. Abdomen is soft and nontender. No distention. MUSCULOSKELETAL: Moves all extremities with full range of motion. VASCULAR: Palpable radial, femoral, DP/PT pulses bilaterally. INTEGUMENTARY: Warm and dry. Once again, as noted generalized bruising of the chest and profuse bruising of the arms. Well-healed right antecubital incision. Right upper arm brachiocephalic AV fistula palpable, but it is small. There is a palpable thrill and audible bruit throughout its length. NEUROLOGIC: Cranial nerves II through XII grossly intact. PSYCHIATRIC: Drowsy. DIAGNOSTIC STUDIES IMAGING STUDIES: No pertinent diagnostic studies at this time. LABORATORY RESULTS: Sodium 125, potassium 5.1, chloride 86, CO2 of 20, BUN 100, creatinine 6.9, and glucose 292. Hemoglobin 11.6, hematocrit 36.1, WBCs 13.3, and platelets 140. ASSESSMENT 1. End-stage renal disease. 2. Need for hemodialysis initiation. PLAN Unit #: [id number] #: [id number] Patient: MECCA LOYOLA His right upper arm fistula is not fully matured at this time. He will need a tunneled dialysis catheter to be used in the outpatient setting until the fistula is fully matured. We will plan to place the tunneled dialysis catheter on Thursday. We will hold his Eliquis dosing over the weekend. We will refer him to have consent obtained as well as to be n.p.o. on Thursday night for surgery on Thursday. After placement, he will follow up with his primary vascular surgeon, Dr. sEpinal for evaluation of his fistula and to determine when the fistula is adequate for use and the tunneled catheter to be removed. Thank you for allowing us to see Mr. West in consultation. Dictated by... Malik Veliz APRN for Leigh Aguilera/tessa TD: 01/11/2017 18:24 JOB #: [id number] CONSULTATION REPORT Page 1 of 1 X X CONSULTATION REPORT
--- NOTE | ~2017-01-08 | CO ---
Unit #: [id number] #: [id number] Patient: ALAN LOYOLA [id number] [facility]. [place], [place] [address] [id number] I MR#: [id number] NAME: ALAN LOYOLA ROOM: 549 Age: 86 Sex: M Admission Date: 01/08/2017 : 1930 Attending Physician: Tamara Mike M.D. Primary Care Physician: Blake Dhillon M.D. Consultation Date: 01/09/2017 CONSULTATION REPORT Nephrology Consultation. REASON FOR CONSULT New end-stage renal disease. HISTORY OF PRESENT ILLNESS Mr. Loyola is a very pleasant 86-year-old male, very well known to me through his recent admissions here at [facility] for congestive heart failure. During those admissions, he has required dobutamine and we have been sending him out on escalating doses of diuretics. At his last discharge, we had increased his Demadex to a 100 mg b.i.d. and added metolazone 3 days a week. Despite that, he re-presented with fluid overload and shortness of breath with worsening kidney function. Plans are being made to start dialysis. He is also on a dobutamine drip per Cardiology. He was seen by me and Interventional Radiology. He just had a Shiley placed as his right arm fistula is not mature enough to use it for dialysis. He appeared comfortable. He said that he has had some poor appetite and nausea and vomiting over the past few days as well. He has had some swelling but has not noticed any real weight gain. PAST MEDICAL HISTORY Significant for advanced chronic kidney disease, cardiomyopathy with an ejection fraction of 30% to 35% with mitral regurgitation and pulmonary hypertension, paroxysmal atrial fibrillation, adult onset diabetes, amiodarone-induced hypothyroidism, history of hemochromatosis, left eye histoplasmosis, and skin cancer. PAST SURGICAL HISTORY He has had a left rotator cuff repair, bilateral knee replacements, and a right arm fistula. HOME MEDICATIONS Amiodarone 200 mg a day; Flonase inhaler; Eliquis 2.5 mg twice a day; Coreg 3.125 mg twice a day; Zaroxolyn 5 mg Thursday, Thursday, and Thursday; Demadex 100 mg twice a day; Zocor 40 mg at bedtime; iron tablet daily; bimatoprost eye drops, Pepcid 10 mg twice a day, baby aspirin daily, potassium 20 mEq twice a day, Synthroid 112 mcg a day, Imdur 30 mg a day, nitroglycerin p.r.n., and Januvia daily. ALLERGIES He has no known drug allergies. FAMILY HISTORY Significant for heart disease and hemochromatosis. Unit #: [id number] #: [id number] Patient: ALAN LOYOLA SOCIAL HISTORY Lives with family. Remote history of tobacco use. No alcohol or drug abuse. REVIEW OF SYSTEMS A complete 12-point review of systems was completed with the above findings. In addition, he denies any headaches or dizziness. No nosebleed. No sore throat or earache. No chest pain or palpitations. No hemoptysis. No hematemesis. No bright red blood per rectum or melena. No urinary complaints. No rashes or itching. No flank pain. No chills. No night sweats or hot flashes. No intolerance to heat or cold. Easy bruising. No back or joint pain. Unless otherwise indicated, the review of systems was negative. PHYSICAL EXAMINATION VITAL SIGNS: The patient is afebrile, pulse 86, respiratory rate 16, and blood pressure 116/44. I's and O's were negative by 100 mL. GENERAL: This is a pleasant 86-year-old white male, lying nearly flat down in Interventional Radiology. Currently, in no acute distress. HEENT: Eyes, show pink conjunctivae with no scleral icterus. No nasal drainage or nosebleed. Oropharynx is moist. No thrush. NECK: Shows no rigidity. HEART: Regular rate with murmur present. No rub appreciated. LUNGS: Show diminished breath sounds at the bases, right greater than left. No wheezing. Breathing is nonlabored at rest. ABDOMEN: Soft, nontender, and nondistended. Bowel sounds are present. EXTREMITIES: The patient has 1+ pitting edema below the knees bilaterally. SKIN: Dry with diffuse bruising. MUSCULOSKELETAL: No CVA tenderness to palpation. VASCULAR: The patient has a right arm fistula in place with good thrill. NEUROLOGIC: Without focal deficit. He does appear to have generalized weakness. LYMPHATIC: There is no neck or cervical lymphadenopathy. PSYCHIATRIC: Mood appears normal. Affect is somewhat flat. DIAGNOSTIC STUDIES LABORATORY RESULTS AND IMAGING STUDIES: Procalcitonin was 0.85. Chest x-ray showed effusions. Most recent blood work from this morning showed a sodium of 125, potassium 5.1, chloride 86, bicarb 20, glucose 292, BUN 100, and creatinine 6.9. CK level was 31. White count was 13, hemoglobin 11.6, and platelet count 140. Admission potassium was high at 5.8. Creatinine then was 6.8. BNP was 2000. Creatinine at discharge back on January 02, was 3.2. ASSESSMENT AND PLAN 1. End-stage renal disease, new. The patient has had multiple admissions for congestive heart failure, and we have tried to keep him off dialysis. However, he is readmitted again for similar issues and worsening kidney function and as I had told the family previously if he got readmitted for heart failure, we would go ahead and start dialysis at that time. The patient has a Shiley in place and we will start dialysis today and tomorrow. We will ask Dr. Harry robbins, to see for a tunneled dialysis catheter as his fistula is immature at this time. We will monitor his response to dialysis. 2. Congestive heart failure, systolic in nature. He is on dobutamine drip as well as torsemide and metolazone. We will pull fluids on dialysis Unit #: [id number] #: [id number] Patient: ALAN LOYOLA as blood pressure allows. 3. Hyponatremia. This is due to volume excess and also blood sugars are high. This should correct with better sugar control and fluid removal. 4. Anemia of chronic disease. Hemoglobin is actually improved since last admission. We can dose EPO as needed. 5. Hyperkalemia. Kayexalate has already been given and potassium has improved. 6. Pleural effusion with thoracentesis planned today. I would like to thank Dr. Temple for this consult and the opportunity to participate in evaluation and care of Mr. Alan Loyola. Dictated by... Harry Rojas Jr., M.D. ETHAN/tessa TD: 01/10/2017 12:52 JOB #: [id number] CONSULTATION REPORT Page 1 of 1 X Harry Rojas MD CONSULTATION REPORT
[~2017-01-08 20:11] MED LIST changes: +ZAROXYLYN PO
[2017-01-08 21:30] LABS: BASOPHIL% 0.1 % (0-2.5); DIFF IND YES; HEMATOCRIT 40.2 % (38.0-50.0); HEMOGLOBIN 12.3 gm/dL (13.0-16.0); LYMPHOCYTE# 0.5 X10e3 (1.0-3.5); LYMPHOCYTE% 3.6 % (17.0-45.0); MEAN CELL VOLUME 88.1 FL (83-96); MEAN CORPUSCULAR HEMOGLOBIN 26.9 PG (28-34); MEAN CORPUSCULAR HGB CONC 30.5 g/dL (30-36); MEAN PLATELET VOLUME 9.6 FL (6.5-11.5); MONOCYTE# 1.1 X10e3 (0-1.0); MONOCYTE% 7.7 % (3.0-12.0); NEUTROPHIL# 12.7 X10e3 (1.5-7.1); NEUTROPHIL% 88.6 % (40-75); PLATELET COUNT 174 X10e3 (140-420); RED BLOOD COUNT 4.57 X10e (3.90-5.60); RED CELL DISTRIBUTION WIDTH 24.3 % (11.0-15.5); WHITE BLOOD COUNT 14.3 X10e3 (4.0-10.5)
[2017-01-08 21:41] LABS: PARTIAL THROMBOPLASTIN TIME 38.4 SECONDS (23.5-31.3)
[2017-01-08 21:44] LABS: POC - CKMB <1.0 ng/mL (0.0-7.9); POC - TROPONIN <0.05 ng/mL (<=0.05)
[2017-01-08 21:44] LABS: PLATELET ESTIMATE NORMAL (NORMAL)
[2017-01-08 21:45] LABS: POIKILOCYTOSIS MOD
[2017-01-08 21:46] LABS: PROTHROMBIN TIME (PATIENT) 21.3 SECONDS (10.0-11.7)
[2017-01-08 21:57] LABS: ALBUMIN SERUM 3.5 g/dL (3.5-5.0); BILIRUBIN, DIRECT 1.9 mg/dL (0.0-0.2); BILIRUBIN,INDIRECT 1.8 mg/dL (0.0-0.9); BILIRUBIN,TOTAL 3.7 mg/dL (0.2-2.0); BUN/CREATININE RATIO 13.67; CALCIUM SERUM 8.4 mg/dL (8.4-10.2); CREATININE SERUM 6.8 mg/dL (0.6-1.4); GLOM FILT RATE Estimated 6.7 mL/min (>60); PROTEIN TOTAL SERUM 6.9 g/dL (6.0-8.3)
[2017-01-08 22:00] LABS: POTASSIUM 5.8 mmol/L (3.5-5.1)
[2017-01-08 23:24] LABS: POC - CKMB <1.0 ng/mL (0.0-7.9); POC - TROPONIN <0.05 ng/mL (<=0.05)
[2017-01-09 05:06] LABS: BASOPHIL% 0.1 % (0-2.5); HEMATOCRIT 36.1 % (38.0-50.0); HEMOGLOBIN 11.6 gm/dL (13.0-16.0); LYMPHOCYTE# 0.3 X10e3 (1.0-3.5); LYMPHOCYTE% 1.9 % (17.0-45.0); MEAN CELL VOLUME 85.5 FL (83-96); MEAN CORPUSCULAR HEMOGLOBIN 27.4 PG (28-34); MEAN PLATELET VOLUME 9.5 FL (6.5-11.5); MONOCYTE% 7.2 % (3.0-12.0); NEUTROPHIL# 12.1 X10e3 (1.5-7.1); NEUTROPHIL% 90.8 % (40-75); PLATELET COUNT 140 X10e3 (140-420); RED BLOOD COUNT 4.22 X10e (3.90-5.60); RED CELL DISTRIBUTION WIDTH 24.3 % (11.0-15.5); WHITE BLOOD COUNT 13.3 X10e3 (4.0-10.5)
[2017-01-09 05:08] LABS: DIFF IND NO
[2017-01-09 06:52] LABS: BUN/CREATININE RATIO 14.49; CALCIUM SERUM 8.3 mg/dL (8.4-10.2); CREATININE SERUM 6.9 mg/dL (0.6-1.4); GLOM FILT RATE Estimated 6.6 mL/min (>60); POTASSIUM 5.1 mmol/L (3.5-5.1)
[2017-01-09 16:49] LABS: BF TOTAL NUCLEATED CELL COUNT 187 CMM (0-100); BODY FLUID APPEARANCE HAZY; BODY FLUID RBC <10000 CMM; BODY FLUID SOURCE PLEURAL
[2017-01-09 17:36] LABS: PROTEIN, BODY FLUID 1.5 gm/dL
[2017-01-11 05:07] LABS: BUN/CREATININE RATIO 11.29; CALCIUM SERUM 8.1 mg/dL (8.4-10.2); CREATININE SERUM 5.4 mg/dL (0.6-1.4); GLOM FILT RATE Estimated 8.9 mL/min (>60); POTASSIUM 3.6 mmol/L (3.5-5.1)
[2017-01-11 05:09] LABS: INR 1.4; MEAN CELL VOLUME 87.8 FL (83-96); MEAN CORPUSCULAR HEMOGLOBIN 26.8 PG (28-34); MEAN CORPUSCULAR HGB CONC 30.5 g/dL (30-36); MEAN PLATELET VOLUME 9.1 FL (6.5-11.5); PROTHROMBIN TIME (PATIENT) 14.7 SECONDS (10.0-11.7); RED BLOOD COUNT 4.1 X10e (3.90-5.60); RED CELL DISTRIBUTION WIDTH 24.1 % (11.0-15.5); WHITE BLOOD COUNT 12.9 X10e3 (4.0-10.5)
[2017-01-11 05:20] LABS: MAGNESIUM 2.5 mg/dL (1.6-3.0)
[2017-01-11 05:23] LABS: PHOSPHOROUS 8.6 mg/dL (2.5-4.6)
[2017-01-12 06:02] LABS: HEMATOCRIT 35.1 % (38.0-50.0); MEAN CELL VOLUME 87.5 FL (83-96); MEAN CORPUSCULAR HEMOGLOBIN 27.4 PG (28-34); MEAN CORPUSCULAR HGB CONC 31.3 g/dL (30-36); RED BLOOD COUNT 4.02 X10e (3.90-5.60); RED CELL DISTRIBUTION WIDTH 23.9 % (11.0-15.5); WHITE BLOOD COUNT 10.7 X10e3 (4.0-10.5)
[2017-01-12 06:45] LABS: BUN/CREATININE RATIO 11.77; CALCIUM SERUM 8.2 mg/dL (8.4-10.2); CREATININE SERUM 6.2 mg/dL (0.6-1.4); GLOM FILT RATE Estimated 7.5 mL/min (>60); POTASSIUM 3.8 mmol/L (3.5-5.1)
[2017-01-13 06:08] LABS: HEMATOCRIT 35.1 % (38.0-50.0); HEMOGLOBIN 10.8 gm/dL (13.0-16.0); MEAN CELL VOLUME 87.2 FL (83-96); MEAN CORPUSCULAR HEMOGLOBIN 26.7 PG (28-34); MEAN CORPUSCULAR HGB CONC 30.7 g/dL (30-36); MEAN PLATELET VOLUME 9.4 FL (6.5-11.5); RED BLOOD COUNT 4.03 X10e (3.90-5.60); RED CELL DISTRIBUTION WIDTH 23.4 % (11.0-15.5)
[2017-01-13 06:47] LABS: BUN/CREATININE RATIO 9.14; CALCIUM SERUM 8.4 mg/dL (8.4-10.2); CREATININE SERUM 4.7 mg/dL (0.6-1.4); GLOM FILT RATE Estimated 10.5 mL/min (>60); POTASSIUM 4.4 mmol/L (3.5-5.1)
[2017-01-13 15:38] LABS: HEPARIN INDUCED PLT AB Positive (Negative); UFH HIGH DOSE 100 0 (()); UFH LOW DOSE 0.1 0 (()); UFH LOW DOSE 0.5 0 (())
[2017-01-14 05:53] LABS: HEMATOCRIT 35.9 % (38.0-50.0); HEMOGLOBIN 11.1 gm/dL (13.0-16.0); MEAN CELL VOLUME 87.6 FL (83-96); MEAN CORPUSCULAR HEMOGLOBIN 27.1 PG (28-34); MEAN CORPUSCULAR HGB CONC 30.9 g/dL (30-36); RED BLOOD COUNT 4.1 X10e (3.90-5.60); RED CELL DISTRIBUTION WIDTH 23.4 % (11.0-15.5); WHITE BLOOD COUNT 8.8 X10e3 (4.0-10.5)
[2017-01-14 06:17] LABS: CALCIUM SERUM 8.4 mg/dL (8.4-10.2); CREATININE SERUM 5.8 mg/dL (0.6-1.4); GLOM FILT RATE Estimated 8.2 mL/min (>60); POTASSIUM 4.2 mmol/L (3.5-5.1)
[2017-02-25] MEDS ORDERED: ZOCOR PO (12:18)
[2017-02-25] MEDS ORDERED: DEMADEX PO (12:18)
[2017-02-25] MEDS ORDERED: COREG3.125 MG PO (12:18)
[2017-02-25] MEDS ORDERED: PACERONE100 MG PO (12:18)
[2017-02-25] MEDS ORDERED: ASPIRIN81 M2 PO (12:19)
[2017-02-25] MEDS ORDERED: LEVO-T112 MCG PO (12:19)
[2017-02-25] MEDS ORDERED: ACID CONTROLLER20 MG PO (12:19)
[2017-02-25] MEDS ORDERED: BIMATOPROST2.5 ML OU (12:19)
[2017-02-25] MEDS ORDERED: RENVELA800 MG PO (12:20)
[2017-02-25] MEDS ORDERED: FLONASE 0.05% N16 GM (12:20)
[2017-02-25] MEDS ORDERED: FOLIC ACID1 MG PO (12:20)
[2017-02-25] MEDS ORDERED: ELIQUIS2.5 MG PO (12:20)
[2017-02-25] MEDS ORDERED: ALBUTEROL20 ml INH (12:20)
[2017-02-25] MEDS ORDERED: FERROUS GLUCON324 M1 PO (12:20)
[2017-02-25] MEDS ORDERED: MULTIVITAMINS1 EAC3 PO (12:21)
[2017-02-25] MEDS ORDERED: HUMALOG100 UNIT/2 (12:21)
== END 2017-01-15 12:26 | DRG 291 ==
LOC: CED 20:11 → C5B 23:15 → CEDOF 23:15 → C5B 01-09 00:40
PROVIDERS: Emergency Medicine; Family Medicine; Internal Medicine; Internal Medicine Cardiovascular Disease; Internal Medicine Nephrology; Surgery Vascular Surgery
PROC: 0W993ZZ Drainage of Right Pleural Cavity, Percutaneous Approach (ICD-10-PCS; 2017-01-09)
PROC: 05HM33Z Insertion of Infusion Device into Right Internal Jugular Vein, Percutaneous Approach (ICD-10-PCS; 2017-01-09)
PROC: B513YZA Fluoroscopy of Right Jugular Veins using Other Contrast, Guidance (ICD-10-PCS; 2017-01-09)
PROC: B543ZZA Ultrasonography of Right Jugular Veins, Guidance (ICD-10-PCS; 2017-01-09)
PROC: 05HM33Z Insertion of Infusion Device into Right Internal Jugular Vein, Percutaneous Approach (ICD-10-PCS; 2017-01-10)
PROC: 5A1D60Z (ICD-10-PCS; 2017-01-12)
PROC: 02H633Z Insertion of Infusion Device into Right Atrium, Percutaneous Approach (ICD-10-PCS; principal; 2017-01-13)
DX: I13.2 Hypertensive heart and chronic kidney disease with heart failure and with stage 5 chronic kidney disease, or end stage renal disease (principal); J96.01 Acute respiratory failure with hypoxia; J90 Pleural effusion, not elsewhere classified; N18.6 End stage renal disease; E11.22 Type 2 diabetes mellitus with diabetic chronic kidney disease; D69.6 Thrombocytopenia, unspecified; E87.5 Hyperkalemia; I50.23 Acute on chronic systolic (congestive) heart failure; E87.1 Hypo-osmolality and hyponatremia; Z79.01 Long term (current) use of anticoagulants; I25.5 Ischemic cardiomyopathy; I48.0 Paroxysmal atrial fibrillation; Z95.0 Presence of cardiac pacemaker; E03.9 Hypothyroidism, unspecified; T46.2X5A Adverse effect of other antidysrhythmic drugs, initial encounter; I25.10 Atherosclerotic heart disease of native coronary artery without angina pectoris; Z95.5 Presence of coronary angioplasty implant and graft; Z85.828 Personal history of other malignant neoplasm of skin; Z96.653 Presence of artificial knee joint, bilateral; R91.1 Solitary pulmonary nodule; D63.1 Anemia in chronic kidney disease
CPT/HCPCS: 36415; 71010; 76000; 76937; 77001; 80048; 80076; 82308; 82550; 82553; 82945; 82947; 83615; 83735; 83880; 83986; 84100; 84157; 84484; 85025; 85027; 85610; 85730; 86022; 87070; 87205; 87340; 88108; 88305; 89051; 93005; 94760; 96374; 97116; 97162; 97166; 97530; 99291; C1750; G8978-GP; G8979-GP; G8987-GO; G8988-GO; J0690; J1250; J1644; J1815; J2405; J2543; J2597; J3010; Q4081